=== PATIENT | male | born 1950 | race Caucasian/White ===

== ENCOUNTER 2022-05-27 05:22 | Day surgery (SDC) | payer MEDICARE ==
[2022-05-21 14:39] LABS: BASOPHILS # (AUTO) 0.1 X10'3 (0-0.2); BASOPHILS % (AUTO) 0.7 % (0-1); EOSINOPHILS # (AUTO) 0.2 X10'3 (0-0.9); EOSINOPHILS % (AUTO) 2.2 % (0-6); LYMPHOCYTES # (AUTO) 1.8 X10'3 (1.1-4.8); LYMPHOCYTES % (AUTO) 17.1 % (21-51); MEAN CORPUSCULAR HEMOGLOBIN 27.5 PG (27.0-31.0); MEAN CORPUSCULAR HGB CONC 32.3 g/dL (33.0-36.5); MEAN CORPUSCULAR VOLUME 84.9 FL (78-98); MEAN PLATELET VOLUME 6.8 FL (7.4-10.4); MONOCYTES # (AUTO) 0.8 X10'3 (0-0.9); MONOCYTES % (AUTO) 7.3 % (2-12); NEUTROPHILS # (AUTO) 7.9 X10'3 (1.8-7.7); NEUTROPHILS % (AUTO) 72.7 % (42-75); PRE OP HEMATOCRIT 32.6 % (42.0-52.0); PRE OP PLATELET COUNT 243 X10'3 (140-440); RED BLOOD COUNT 3.84 X10'6 (4.70-6.10); RED CELL DISTRIBUTION WIDTH 14.8 % (11.5-14.5)
[2022-05-21 14:49] LABS: PRE OP HEMOGLOBIN 10.5 g/dL (14.0-17.9)
[2022-05-21 14:55] LABS: ALBUMIN 3.6 G/DL (3.4-5.0); ALBUMIN/GLOBULIN RATIO 0.9 (1.1-1.5); ALKALINE PHOSPHATASE 99 IU/L (46-116); BLOOD UREA NITROGEN 9 MG/DL (7-18); BUN/CREATININE RATIO 12.2 (5.4-32.0); CALCIUM 9.1 MG/DL (8.5-10.1); CHLORIDE 107 MMOL/L (99-107); CREATININE 0.74 MG/DL (0.60-1.10); PRE OP ALT 15 U/L (30-65); PRE OP ANION GAP 8 (8-16); PRE OP AST 17 U/L (10-37); PRE OP BILIRUB, TOTAL 0.4 MG/DL (0.0-1.0); PRE OP GLUCOSE 92 MG/DL (70-104); PRE OP SODIUM 142 MMOL/L (135-145); TOTAL CARBON DIOXIDE 27.4 MMOL/L (24-32); TOTAL PROTEIN 7.5 G/DL (6.4-8.2); eGFR > 90 ML/MIN
[~2022-05-27] VITALS: Ht 177.8 cm; Wt 82.2 kg
[2022-05-27] VITALS (8 sets, daily range): BP systolic 92–139; BP diastolic 54–83
[~2022-05-27 05:22] MED LIST: APIX5TAB3 PO; GABA400C PO; IBUP-1985 PO; TRAZ-251 PO; ringers solution, lacted 1,000 ML IV SCH
[2022-05-27] MEDS ORDERED: cefazolin 2gm/D5W 100mL 100 ML IV ONE (05:30)
[2022-05-27] MEDS ORDERED: famotidine 20mg tablet PO ONE (05:30)
[2022-05-27] MEDS ORDERED: BUPIVAcaine/PF 2.5 mg/ml (0.25%) 30ml vial ONE (07:01)
[2022-05-27] MEDS ORDERED: triamcinolone acetonide 40mg/ml inj ONE (07:01)
[2022-05-27] MEDS ORDERED: sevoflurane 250ml liquid IH ONE (07:29)
[2022-05-27] MEDS ORDERED: fentaNYL/PF 50MCG/1 ML 2ML syringe ONE (07:34)
[2022-05-27] MEDS ORDERED: midazolam 1 mg/ML 2ml injection ONE (07:37)
[2022-05-27] MEDS ORDERED: propofol inj 20 ML IV ONE (07:50)
[2022-05-27] MEDS ORDERED: BUPIVAcaine/PF 2.5 mg/ml (0.25%) 30ml vial IJ ONE (07:53)
[2022-05-27] MEDS ORDERED: triamcinolone acetonide 40mg/ml inj IJ ONE (07:53)
[2022-05-27] MEDS ORDERED: HYDROcodone/acetaminophen 10/325mg tab PO PRN (07:55)
--- NOTE | 2022-05-27 08:00 | NUR ---
Received from OR via BED, accompanied by Anesthesiologist and report given by Anesthesiologist. PATIENT WAKING UP, NO S/S OF PAIN, V/S WNL, SCD ON, 20G TO RUE, BANDAID drsg to RIGHT shoulder-CDI
[2022-05-27] MEDS ORDERED: ondansetron/PF 4mg/2ml inj IV PRN (08:05)
[2022-05-27] MEDS ORDERED: proCHLORperazine 10 MG/2 ml inj IV PRN (08:05)
[2022-05-27] MEDS ORDERED: ringers solution, lacted 1,000 ML IV SCH (08:05)
[2022-05-27] MEDS ORDERED: meperidine/PF 25mg/ml syringe IV PRN ×3 (08:05)
[2022-05-27] MEDS ORDERED: morphine 2 MG/ML inj. syringe IV PRN (08:05)
[2022-05-27] MEDS ORDERED: morphine 4 MG/ML inj SYRINge IV PRN (08:05)
--- NOTE | 2022-05-27 08:05 | NUR ---
Received from OR via BED, accompanied by Anesthesiologist and report given by Anesthesiologist. PATIENT WAKING UP, NO S/S OF PAIN, V/S WNL, SCD ON, 20G TO HEMA LYN to RIGHT shoulder-CDI Addendum: 05/27/22 at 0806 by Joao Fuller RN WRONG TIME
--- NOTE | 2022-05-27 09:00 | NUR ---
PATIENT A&OX4, DENIES PAIN, V/S WNL, SCD OFF, 20G TO RUE D/C, BANDAID drsg to RIGHT shoulder-CDI I HAVE REVIEWED D/C INSTRUCTIONS WITH PATIENT and they have verbalized understanding patient d/c home with all belongings and family gave transport home.
== END 2022-05-27 09:00 | disposition home or self-care (01) ==
LOC: PAS 05:22
PROVIDERS: ATTEND Orthopaedic Surgery
DX: M75.01 Adhesive capsulitis of right shoulder (principal); M25.611 Stiffness of right shoulder, not elsewhere classified; M75.121 Complete rotator cuff tear or rupture of right shoulder, not specified as traumatic; I48.91 Unspecified atrial fibrillation; M19.90 Unspecified osteoarthritis, unspecified site; G62.9 Polyneuropathy, unspecified; F10.91 Alcohol use, unspecified, in remission; Z79.01 Long term (current) use of anticoagulants; Z79.899 Other long term (current) drug therapy; Z87.891 Personal history of nicotine dependence; Z98.890 Other specified postprocedural states; Z96.611 Presence of right artificial shoulder joint; Z96.653 Presence of artificial knee joint, bilateral
CPT/HCPCS: 20610; 23700; 36415; 80053; 82948; 85025; J0690; J2250; J2704; J3010; J3301; J3490; J7120; Z7506; Z7512; A4618

== ENCOUNTER 2022-10-07 05:18 | Inpatient (IN) | payer MEDICARE ==
[2022-09-30 11:48] LABS: BASOPHILS # (AUTO) 0.1 X10'3 (0-0.2); BASOPHILS % (AUTO) 0.6 % (0-1); EOSINOPHILS # (AUTO) 0.2 X10'3 (0-0.9); EOSINOPHILS % (AUTO) 1.9 % (0-6); LYMPHOCYTES # (AUTO) 1.9 X10'3 (1.1-4.8); LYMPHOCYTES % (AUTO) 19.6 % (21-51); MEAN CORPUSCULAR HEMOGLOBIN 27.8 PG (27.0-31.0); MEAN CORPUSCULAR VOLUME 84.2 FL (78-98); MEAN PLATELET VOLUME 7.2 FL (7.4-10.4); MONOCYTES # (AUTO) 0.7 X10'3 (0-0.9); MONOCYTES % (AUTO) 7.4 % (2-12); NEUTROPHILS # (AUTO) 6.7 X10'3 (1.8-7.7); NEUTROPHILS % (AUTO) 70.5 % (42-75); PRE OP HEMATOCRIT 37.2 % (42.0-52.0); PRE OP HEMOGLOBIN 12.3 g/dL (14.0-17.9); PRE OP PLATELET COUNT 226 X10'3 (140-440); RED BLOOD COUNT 4.42 X10'6 (4.70-6.10); RED CELL DISTRIBUTION WIDTH 18.1 % (11.5-14.5)
[2022-09-30 12:08] LABS: ALBUMIN 3.7 G/DL (3.4-5.0); ALKALINE PHOSPHATASE 85 IU/L (46-116); BLOOD UREA NITROGEN 13 MG/DL (7-18); BUN/CREATININE RATIO 12.4 (10.0-20.0); CALCIUM 9.4 MG/DL (8.5-10.1); CHLORIDE 107 MMOL/L (99-107); CREATININE 1.05 MG/DL (0.60-1.10); PRE OP ALT 17 U/L (30-65); PRE OP ANION GAP 7 (8-16); PRE OP AST 21 U/L (10-37); PRE OP BILIRUB, TOTAL 0.6 MG/DL (0.0-1.0); PRE OP GLUCOSE 121 MG/DL (70-104); PRE OP POTASSIUM 4.1 MMOL/L (3.4-5.1); PRE OP SODIUM 144 MMOL/L (135-145); TOTAL CARBON DIOXIDE 29.6 MMOL/L (24-32); TOTAL PROTEIN 7.5 G/DL (6.4-8.2); eGFR 70 ML/MIN
[2022-10-07] VITALS (31 sets, daily range): BP systolic 123–175; BP diastolic 60–98; PULSE 62–90; RESP 12–18; TEMP 97.1–98.7; O2SAT 94–100
[~2022-10-07] VITALS: Ht 177.8 cm; Wt 85.7 kg
[~2022-10-07 05:18] MED LIST changes: +ACET-1025 PO; +CELE-193 PO; +GABA300C PO; -GABA400C PO; -IBUP-1985 PO; +MULT-1085 PO; +VIT C PO; +VIT D PO
[2022-10-07] MEDS ORDERED: ceFOXitin 2GM-NS 100mL ADDvant 100 ML IV ONE (05:30)
[2022-10-07] MEDS ORDERED: famotidine 20mg tablet PO ONE (05:30)
[2022-10-07] MEDS ORDERED: LIDOcaine 1% 30ml preserv. free vial ONE (06:35)
[2022-10-07] MEDS ORDERED: BUPIVAcaine/PF 2.5 mg/ml (0.25%) 30ml vial ONE ×2 (06:35→12:36)
[2022-10-07] MEDS ORDERED: rocuronium 10mg/ml inj IV ONE ×2 (07:27→08:03)
[2022-10-07] MEDS ORDERED: sevoflurane 250ml liquid IH ONE (07:27)
[2022-10-07] MEDS ORDERED: fentaNYL /PF 50mcg/ml 5ml ampule ONE (07:38)
[2022-10-07] MEDS ORDERED: MIDAZolam 1 MG/ML 5ML VIAL ONE (07:38)
[2022-10-07] MEDS ORDERED: propofol inj 20 ML IV ONE (07:40)
[2022-10-07] MEDS ORDERED: LIDOcaine 2% (20mg/ml) 5ml vial ONE (07:40)
[2022-10-07] MEDS ORDERED: LIDOcaine 4% (40 mg/ml) topical solution 50ml ONE (08:03)
[2022-10-07] MEDS ORDERED: dexamethasone sod phosphate 4mg/ml inj. ONE (08:03)
[2022-10-07] MEDS ORDERED: glycopyrrolate 0.2mg/ml inj ONE (08:12)
[2022-10-07] MEDS ORDERED: ringers solution, lacted 1,000 ML IV SCH (08:45)
[2022-10-07] MEDS ORDERED: labetalol 20mg/4ml (5mg/ml) syringe IV PRN (08:45)
[2022-10-07] MEDS ORDERED: morphine 4 MG/ML inj SYRINge IV PRN (08:45)
[2022-10-07] MEDS ORDERED: morphine 2 MG/ML inj. syringe IV PRN (08:45)
[2022-10-07] MEDS ORDERED: meperidine/PF 25mg/ml syringe IV PRN ×3 (08:45)
[2022-10-07] MEDS ORDERED: enalaprilat dihydrate 2.5mg/2ml vial IV PRN (08:45)
[2022-10-07] MEDS ORDERED: ondansetron/PF 4mg/2ml inj IV PRN ×2 (08:45→10:50)
[2022-10-07] MEDS ORDERED: proCHLORperazine 10 MG/2 ml inj IV PRN (08:45)
[2022-10-07] MEDS ORDERED: INDOCYANINE GREEN 25 MG/10 ML VIAL IV ONE (09:37)
[2022-10-07] MEDS ORDERED: acetaminophen 1,000mg/100ml IV 100 ML IV ONE (09:39)
[2022-10-07] MEDS ORDERED: neostigmine methylsulfate 1 MG/ML 10ml vial ONE (10:22)
[2022-10-07] MEDS ORDERED: ondansetron/PF 4mg/2ml inj ONE (10:22)
--- NOTE | 2022-10-07 10:35 | NUR ---
Received from OR via HOSPITAL BED , accompanied by Anesthesiologist and report given by DESIREE Anesthesiologist. PATIENT WAKING UP, NO S/S OF PAIN, V/S WNL, SCD ON , PIV 20G RIGHT HAND, ABDOMEN DRESSING C/D/I. Addendum: 10/07/22 at 1051 by Jurgen Mayen RN Amended: Links added.
--- NOTE | 2022-10-07 10:36 | NUR ---
SUPRAPUBIC QIU CATHETER DRAINING CLEAR YELLOW URINE. SITE IS C/D/I.
[2022-10-07] MEDS ORDERED: oxyCODONE/APAP 5-325mg tablet PO PRN (10:50)
[2022-10-07] MEDS ORDERED: naloxone 0.4 mg/ml inj IV PRN (10:50)
[2022-10-07] MEDS ORDERED: vancomycin 1,000mg inj ONE (12:36)
--- NOTE | 2022-10-07 13:01 | NUR ---
Received report from Suman HARRELL
--- NOTE | 2022-10-07 13:05 | NUR ---
PATIENT HAS MET ALL CRITERIA FOR TRANSFER TO ORTHO FLOOR. VSS. DRESSINGS INTACT. BED LOW, CALL LIGHT PRESENT AND 2 RAILS UP. RN PRESENT TO ACCEPT CARE OF PATIENT AND REPORT HAS BEEN CALLED. ALL QUESTIONS ANSWERED TO ACCEPTING RN. Addendum: 10/07/22 at 1307 by Jurgen Mayen RN Amended: Links added.
[2022-10-07] MEDS: potassium CL 20mEq in D5-1/2NS 1,000 ML IV SCH ×2 (13:35→21:59)
[2022-10-07] MEDS: acetaminophen 325mg tablet PO SCH ×2 (15:25→21:55)
[2022-10-07] MEDS: ketorolac trometh. 30mg/ml inj. IV SCH ×2 (15:37→23:49)
--- NOTE | 2022-10-07 16:15 | NUR ---
EARLIER IN THE DAY, GAVE REPORT TO FERNANDA KEY.
--- NOTE | 2022-10-07 17:00 | NUR ---
I have reviewed and agree with the interventions, assessments, and documentation by Enzo Nugent LVN.
--- NOTE | 2022-10-07 18:35 | NUR ---
Received report from day nurse.
--- NOTE | 2022-10-07 19:00 | NUR ---
Problems reprioritized. Patient report given, questions answered & plan of care reviewed with JULIO CESAR Dorado.
[2022-10-07] MEDS: traZODone 50mg tablet PO SCH (21:55)
[2022-10-07] MEDS: gabapentin 300mg capsule PO SCH (21:56)
[2022-10-07] MEDS: magnesium hydroxide 30ml (MOM) UD suspension PO SCH (21:56)
[2022-10-08] VITALS (7 sets, daily range): BP systolic 107–169; BP diastolic 54–86; PULSE 59–79; RESP 15–20; TEMP 97.6–98.7; O2SAT 95–98
[2022-10-08] MEDS: acetaminophen 325mg tablet PO SCH ×4 (02:00→21:01)
[2022-10-08] MEDS: potassium CL 20mEq in D5-1/2NS 1,000 ML IV SCH ×3 (05:26→21:00)
--- NOTE | 2022-10-08 06:19 | NUR ---
Patient in room ORTHO 4015. I have received report from JULIO CESAR Dorado and had the opportunity to ask questions and assume patient care.
--- NOTE | 2022-10-08 06:50 | NUR ---
Problems reprioritized. Patient report given, questions answered & plan of care reviewed with Enzo Contreras.
[2022-10-08 06:53] LABS: BASOPHILS % (AUTO) 0 % (0-1); EOSINOPHILS % (AUTO) 0 % (0-6); HEMATOCRIT 35.3 % (42.0-52.0); HEMOGLOBIN 11.5 g/dl (14.0-17.9); LYMPHOCYTES # (AUTO) 0.8 X10'3 (1.1-4.8); LYMPHOCYTES % (AUTO) 4.2 % (21-51); MEAN CORPUSCULAR HEMOGLOBIN 27.7 PG (27.0-31.0); MEAN CORPUSCULAR HGB CONC 32.5 g/dL (33.0-36.5); MEAN CORPUSCULAR VOLUME 85.2 FL (78-98); MONOCYTES # (AUTO) 1.1 X10'3 (0-0.9); MONOCYTES % (AUTO) 6.1 % (2-12); NEUTROPHILS # (AUTO) 16.2 X10'3 (1.8-7.7); NEUTROPHILS % (AUTO) 89.7 % (42-75); PLATELET COUNT 195 X10'3 (140-440); RED BLOOD COUNT 4.14 X10'6 (4.70-6.10); RED CELL DISTRIBUTION WIDTH 16.9 % (11.5-14.5); WHITE BLOOD COUNT 18.1 X10'3 (4.5-11.0)
[2022-10-08 07:04] LABS: ALBUMIN 3.2 G/DL (3.4-5.0); ANION GAP 10 (8-16); BLOOD UREA NITROGEN 17 MG/DL (7-18); BUN/CREATININE RATIO 14.8 (10.0-20.0); CALCIUM 8.3 MG/DL (8.5-10.1); CHLORIDE 102 MMOL/L (99-107); CREATININE 1.15 MG/DL (0.60-1.10); GLUCOSE 186 MG/DL (70-104); POTASSIUM 4.4 MMOL/L (3.5-5.1); SODIUM 135 MMOL/L (135-145); TOTAL CARBON DIOXIDE 22.7 MMOL/L (24-32); eGFR 63 ML/MIN
[2022-10-08] MEDS: magnesium hydroxide 30ml (MOM) UD suspension PO SCH ×2 (07:47→21:01)
[2022-10-08] MEDS: enoxaparin 40mg/0.4ml syringe SQ SCH (07:48)
[2022-10-08] MEDS: gabapentin 300mg capsule PO SCH ×2 (07:48→21:01)
[2022-10-08] MEDS: ketorolac trometh. 30mg/ml inj. IV SCH ×2 (08:11→16:32)
--- NOTE | 2022-10-08 18:00 | NUR ---
I have reviewed and agree with interventions, assessments, and documentation by Enzo Nugent LVN.
--- NOTE | 2022-10-08 18:45 | NUR ---
Patient in room ORTHO 4015. I have received report from Enzo cespedes and had the opportunity to ask questions and assume patient care.
--- NOTE | 2022-10-08 18:58 | NUR ---
Problems reprioritized. Patient report given, questions answered & plan of care reviewed with JULIO CESAR Dorado.
[2022-10-08] MEDS: traZODone 50mg tablet PO SCH (21:01)
[2022-10-09] MEDS: ketorolac trometh. 30mg/ml inj. IV SCH ×3 (00:49→16:16)
[2022-10-09] MEDS: acetaminophen 325mg tablet PO SCH ×4 (00:50→21:33)
[2022-10-09] MEDS: potassium CL 20mEq in D5-1/2NS 1,000 ML IV SCH ×3 (02:57→18:50)
[2022-10-09 06:00] VITALS: BP 153/84; PULSE 79; RESP 18; TEMP 97.1; O2SAT 98
--- NOTE | 2022-10-09 06:18 | NUR ---
Patient in room ORTHO 4011. I have received report from JULIO CESAR Dorado and had the opportunity to ask questions and assume patient care. NAD at this time.
[2022-10-09 06:48] LABS: BASOPHILS # (AUTO) 0.1 X10'3 (0-0.2); BASOPHILS % (AUTO) 0.3 % (0-1); EOSINOPHILS % (AUTO) 0 % (0-6); HEMATOCRIT 34.4 % (42.0-52.0); HEMOGLOBIN 11.3 g/dl (14.0-17.9); LYMPHOCYTES # (AUTO) 1.1 X10'3 (1.1-4.8); LYMPHOCYTES % (AUTO) 6.4 % (21-51); MEAN CORPUSCULAR HEMOGLOBIN 28.1 PG (27.0-31.0); MEAN CORPUSCULAR VOLUME 85.2 FL (78-98); MEAN PLATELET VOLUME 7.8 FL (7.4-10.4); MONOCYTES # (AUTO) 1.2 X10'3 (0-0.9); MONOCYTES % (AUTO) 6.9 % (2-12); NEUTROPHILS # (AUTO) 14.7 X10'3 (1.8-7.7); NEUTROPHILS % (AUTO) 86.4 % (42-75); PLATELET COUNT 186 X10'3 (140-440); RED BLOOD COUNT 4.04 X10'6 (4.70-6.10); RED CELL DISTRIBUTION WIDTH 17.3 % (11.5-14.5)
[2022-10-09 07:06] LABS: ALBUMIN 3.1 G/DL (3.4-5.0); ANION GAP 7 (8-16); BLOOD UREA NITROGEN 15 MG/DL (7-18); BUN/CREATININE RATIO 17.6 (10.0-20.0); CALCIUM 8.3 MG/DL (8.5-10.1); CHLORIDE 104 MMOL/L (99-107); CREATININE 0.85 MG/DL (0.60-1.10); GLUCOSE 164 MG/DL (70-104); POTASSIUM 4.6 MMOL/L (3.5-5.1); SODIUM 138 MMOL/L (135-145); TOTAL CARBON DIOXIDE 26.7 MMOL/L (24-32); eGFR 89 ML/MIN
[2022-10-09] MEDS: enoxaparin 40mg/0.4ml syringe SQ SCH (07:47)
[2022-10-09] MEDS: magnesium hydroxide 30ml (MOM) UD suspension PO SCH ×2 (07:48→21:34)
[2022-10-09] MEDS: gabapentin 300mg capsule PO SCH ×2 (07:49→21:33)
[2022-10-09 08:00] VITALS: RESP 16; O2SAT 97
[2022-10-09 10:00] VITALS: BP 152/77; PULSE 68; RESP 16; TEMP 98; O2SAT 95
--- NOTE | 2022-10-09 15:56 | NUR ---
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
[2022-10-09 18:00] VITALS: BP 150/72; PULSE 85; RESP 16; TEMP 97; O2SAT 97
--- NOTE | 2022-10-09 18:27 | NUR ---
Problems reprioritized. Patient report given, questions answered & plan of care reviewed with shift superintendent RN.
--- NOTE | 2022-10-09 18:30 | NUR ---
Patient in room ORTHO 4015. I have received report from Fabiola MICHAEL and had the opportunity to ask questions and assume patient care.
--- NOTE | 2022-10-09 18:38 | NUR ---
Problems reprioritized. Patient report given, questions answered & plan of care reviewed with JULIO CESAR Dorado.
--- NOTE | 2022-10-09 19:27 | NUR ---
Called with regard to emerald on hold, last taken 10/03. stated that he is waiting to see H&H in tomorrows labs before resuming. Patient is getting 40mg lovenox sub Q daily.
[2022-10-09 20:00] VITALS: RESP 16; O2SAT 97
[2022-10-09] MEDS: traZODone 50mg tablet PO SCH (21:32)
[2022-10-09 22:00] VITALS: BP 136/77; PULSE 82; RESP 16; TEMP 97.9; TEMP 98.7; O2SAT 97
[2022-10-10] MEDS: ketorolac trometh. 30mg/ml inj. IV SCH ×2 (00:27→07:26)
[2022-10-10] MEDS: acetaminophen 325mg tablet PO SCH ×4 (02:00→20:21)
[2022-10-10] MEDS: potassium CL 20mEq in D5-1/2NS 1,000 ML IV SCH ×2 (02:50→08:20)
[2022-10-10 06:00] VITALS: BP 148/82; PULSE 66; RESP 16; TEMP 98.9; O2SAT 98
--- NOTE | 2022-10-10 06:15 | NUR ---
Problems reprioritized. Patient report given, questions answered & plan of care reviewed with Fabiola Contreras.
--- NOTE | 2022-10-10 06:17 | NUR ---
Patient in room ORTHO 4015. I have received report from JULIO CESAR Dorado and had the opportunity to ask questions and assume patient care.
[2022-10-10 07:10] LABS: BASOPHILS # (AUTO) 0.1 X10'3 (0-0.2); BASOPHILS % (AUTO) 0.5 % (0-1); EOSINOPHILS % (AUTO) 0.2 % (0-6); HEMATOCRIT 33.9 % (42.0-52.0); HEMOGLOBIN 10.9 g/dl (14.0-17.9); LYMPHOCYTES # (AUTO) 1.4 X10'3 (1.1-4.8); LYMPHOCYTES % (AUTO) 9.7 % (21-51); MEAN CORPUSCULAR HEMOGLOBIN 27.6 PG (27.0-31.0); MEAN CORPUSCULAR HGB CONC 32.2 g/dL (33.0-36.5); MEAN CORPUSCULAR VOLUME 85.8 FL (78-98); MEAN PLATELET VOLUME 7.8 FL (7.4-10.4); MONOCYTES % (AUTO) 6.7 % (2-12); NEUTROPHILS # (AUTO) 11.8 X10'3 (1.8-7.7); NEUTROPHILS % (AUTO) 82.9 % (42-75); PLATELET COUNT 203 X10'3 (140-440); RED BLOOD COUNT 3.95 X10'6 (4.70-6.10); RED CELL DISTRIBUTION WIDTH 17.3 % (11.5-14.5); WHITE BLOOD COUNT 14.2 X10'3 (4.5-11.0)
[2022-10-10] MEDS: enoxaparin 40mg/0.4ml syringe SQ SCH (07:28)
[2022-10-10] MEDS: gabapentin 300mg capsule PO SCH (07:28)
[2022-10-10] MEDS: magnesium hydroxide 30ml (MOM) UD suspension PO SCH (07:30)
[2022-10-10 07:49] LABS: ANION GAP 9 (8-16); BLOOD UREA NITROGEN 17 MG/DL (7-18); BUN/CREATININE RATIO 19.5 (10.0-20.0); CALCIUM 8.3 MG/DL (8.5-10.1); CHLORIDE 106 MMOL/L (99-107); CREATININE 0.87 MG/DL (0.60-1.10); GLUCOSE 94 MG/DL (70-104); POTASSIUM 4.3 MMOL/L (3.5-5.1); SODIUM 141 MMOL/L (135-145); TOTAL CARBON DIOXIDE 26.2 MMOL/L (24-32); eGFR 87 ML/MIN
[2022-10-10 08:00] VITALS: RESP 16; O2SAT 98
[2022-10-10 10:00] VITALS: BP 129/64; PULSE 85; RESP 18; TEMP 98.4; O2SAT 98
[2022-10-10] MEDS: gabapentin 400mg capsule PO SCH ×3 (12:50→20:21)
[2022-10-10] MEDS ORDERED: HYDROcodone/acetaminophen 5mg/325mg tablet PO PRN ×2 (12:55)
[2022-10-10] MEDS ORDERED: HYDR-3964 PO (13:01)
--- NOTE | 2022-10-10 14:52 | NUR ---
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
[2022-10-10 18:00] VITALS: BP 156/96; PULSE 94; RESP 18; TEMP 99.5; O2SAT 96
--- NOTE | 2022-10-10 18:35 | NUR ---
Problems reprioritized. Patient report given, questions answered & plan of care reviewed with shift superintendent caustic cresylate nurse.
--- NOTE | 2022-10-10 19:04 | NUR ---
Problems reprioritized. Patient report given, questions answered & plan of care reviewed with operation shift supervisor nurse.
[2022-10-10 20:00] VITALS: RESP 16; O2SAT 96
[2022-10-10] MEDS: traZODone 50mg tablet PO SCH (20:21)
[2022-10-10] MEDS: apixaban 5mg tablet PO SCH (20:21)
[2022-10-10 22:00] VITALS: BP 149/72; PULSE 103; RESP 17; TEMP 98.7; O2SAT 96
[2022-10-11] MEDS: acetaminophen 325mg tablet PO SCH ×4 (02:00→20:05)
--- NOTE | 2022-10-11 06:30 | NUR ---
Patient in room ORTHO 4015. I have received report from Kaylynn HARRELL and had the opportunity to ask questions and assume patient care.
[2022-10-11 06:34] VITALS: BP 152/82; PULSE 84; RESP 16; TEMP 98.5; O2SAT 98
[2022-10-11 06:48] LABS: BASOPHILS % (AUTO) 0.3 % (0-1); EOSINOPHILS # (AUTO) 0.1 X10'3 (0-0.9); HEMATOCRIT 31.9 % (42.0-52.0); HEMOGLOBIN 10.5 g/dl (14.0-17.9); LYMPHOCYTES # (AUTO) 1.3 X10'3 (1.1-4.8); LYMPHOCYTES % (AUTO) 9.4 % (21-51); MEAN CORPUSCULAR HEMOGLOBIN 28.2 PG (27.0-31.0); MEAN CORPUSCULAR HGB CONC 33.1 g/dL (33.0-36.5); MEAN CORPUSCULAR VOLUME 85.2 FL (78-98); MEAN PLATELET VOLUME 7.8 FL (7.4-10.4); MONOCYTES # (AUTO) 1.4 X10'3 (0-0.9); MONOCYTES % (AUTO) 9.8 % (2-12); NEUTROPHILS # (AUTO) 11.1 X10'3 (1.8-7.7); NEUTROPHILS % (AUTO) 79.5 % (42-75); PLATELET COUNT 224 X10'3 (140-440); RED BLOOD COUNT 3.74 X10'6 (4.70-6.10); RED CELL DISTRIBUTION WIDTH 17.1 % (11.5-14.5)
--- NOTE | 2022-10-11 06:49 | NUR ---
Problems reprioritized. Patient report given, questions answered & plan of care reviewed with GEOVANY RN.
[2022-10-11 06:52] LABS: ALBUMIN 2.7 G/DL (3.4-5.0); ANION GAP 10 (8-16); BLOOD UREA NITROGEN 17 MG/DL (7-18); CALCIUM 8.5 MG/DL (8.5-10.1); CHLORIDE 106 MMOL/L (99-107); CREATININE 0.85 MG/DL (0.60-1.10); GLUCOSE 108 MG/DL (70-104); POTASSIUM 3.7 MMOL/L (3.5-5.1); SODIUM 140 MMOL/L (135-145); TOTAL CARBON DIOXIDE 24.5 MMOL/L (24-32); eGFR 89 ML/MIN
[2022-10-11] MEDS: apixaban 5mg tablet PO SCH ×2 (07:20→20:03)
[2022-10-11] MEDS: gabapentin 400mg capsule PO SCH ×3 (07:21→20:03)
[2022-10-11] MEDS: magnesium hydroxide 30ml (MOM) UD suspension PO SCH (07:22)
[2022-10-11 08:00] VITALS: RESP 16
[2022-10-11 10:02] VITALS: BP 104/53; PULSE 82; RESP 16; TEMP 97.7; O2SAT 96
[2022-10-11 18:00] VITALS: BP 121/58; PULSE 78; RESP 18; TEMP 97.1; O2SAT 99
--- NOTE | 2022-10-11 18:47 | NUR ---
Problems reprioritized. Patient report given, questions answered & plan of care reviewed with Kaylynn HARRELL.
[2022-10-11 20:00] VITALS: RESP 18; O2SAT 99
[2022-10-11] MEDS: traZODone 50mg tablet PO SCH (20:03)
[2022-10-11 22:00] VITALS: BP 121/66; PULSE 76; RESP 16; TEMP 97.8; O2SAT 97
[2022-10-12] MEDS: acetaminophen 325mg tablet PO SCH ×4 (02:00→20:45)
[2022-10-12 06:00] VITALS: BP 119/55; PULSE 76; RESP 17; TEMP 98.1; O2SAT 97
--- NOTE | 2022-10-12 06:39 | NUR ---
Patient in room ORTHO 4015. I have received report from Kaylynn HARRELL and had the opportunity to ask questions and assume patient care.
[2022-10-12] MEDS: apixaban 5mg tablet PO SCH ×2 (07:39→20:45)
[2022-10-12] MEDS: gabapentin 400mg capsule PO SCH ×3 (07:39→20:45)
[2022-10-12] MEDS: magnesium hydroxide 30ml (MOM) UD suspension PO SCH (07:45)
[2022-10-12 07:49] LABS: BASOPHILS % (AUTO) 0.4 % (0-1); EOSINOPHILS # (AUTO) 0.3 X10'3 (0-0.9); EOSINOPHILS % (AUTO) 2.3 % (0-6); HEMATOCRIT 30.2 % (42.0-52.0); HEMOGLOBIN 9.8 g/dl (14.0-17.9); LYMPHOCYTES # (AUTO) 1.1 X10'3 (1.1-4.8); LYMPHOCYTES % (AUTO) 8.5 % (21-51); MEAN CORPUSCULAR HEMOGLOBIN 27.6 PG (27.0-31.0); MEAN CORPUSCULAR HGB CONC 32.3 g/dL (33.0-36.5); MEAN CORPUSCULAR VOLUME 85.4 FL (78-98); MEAN PLATELET VOLUME 7.5 FL (7.4-10.4); MONOCYTES # (AUTO) 1.4 X10'3 (0-0.9); MONOCYTES % (AUTO) 10.7 % (2-12); NEUTROPHILS # (AUTO) 10.3 X10'3 (1.8-7.7); NEUTROPHILS % (AUTO) 78.1 % (42-75); PLATELET COUNT 222 X10'3 (140-440); RED BLOOD COUNT 3.54 X10'6 (4.70-6.10); RED CELL DISTRIBUTION WIDTH 17.7 % (11.5-14.5); WHITE BLOOD COUNT 13.2 X10'3 (4.5-11.0)
[2022-10-12 07:52] LABS: ALBUMIN 2.4 G/DL (3.4-5.0); ANION GAP 9 (8-16); BLOOD UREA NITROGEN 17 MG/DL (7-18); BUN/CREATININE RATIO 24.3 (10.0-20.0); CALCIUM 8.1 MG/DL (8.5-10.1); CHLORIDE 106 MMOL/L (99-107); GLUCOSE 97 MG/DL (70-104); POTASSIUM 3.4 MMOL/L (3.5-5.1); SODIUM 139 MMOL/L (135-145); TOTAL CARBON DIOXIDE 23.9 MMOL/L (24-32); eGFR > 90 ML/MIN
[2022-10-12 08:00] VITALS: RESP 18
[2022-10-12 10:00] VITALS: BP 118/54; PULSE 105; RESP 18; TEMP 97.9; O2SAT 98
--- NOTE | 2022-10-12 15:26 | NUR ---
Initial: Pt admit post-op day 5 s/p colostomy reversal advanced to regular diet 8/4 WL from initial full liquids 8/2 WL PO ~52% avg solid meals per EMR. Overall not meeting estimated needs given restrictive diets though if current intake persists will meet ~60% kcal and ~55% protein estimated needs. Pt seen by HARMONY at bedside; pt reports is being discharged tomorrow w/ intake and appetite improving though dislikes oatmeal/cream of wheat-dietary notified. RD provided verbal high protein/ONS diet ed to pt who reports has drank Ensures in past and will at home if intake declines. Pt is agreeable to peach smoothie TIDWM to assist meeting needs- dietary notified. LBM 10/11. Will monitor for further PO trends and nutrition intervention needs. Rec: 1. continue regular diet per MD; encourage PO 2. peach smoothie TIDWM 3. routine bowel care 4. weekly wt Addendum: 10/12/22 at [address] Amended: Links added.
--- NOTE | 2022-10-12 17:04 | NUR ---
Patients dressing changed at this time arnaud packing wet to moist, covered with 4 by [address] optifoam
--- NOTE | 2022-10-12 18:22 | NUR ---
Problems reprioritized. Patient report given, questions answered & plan of care reviewed with Kaylynn HARRELL.
[2022-10-12 20:00] VITALS: RESP 15; O2SAT 96
[2022-10-12] MEDS: traZODone 50mg tablet PO SCH (20:45)
[2022-10-13] MEDS: acetaminophen 325mg tablet PO SCH ×3 (02:00→09:25)
[2022-10-13 06:00] VITALS: BP 134/63; PULSE 66; RESP 18; TEMP 98.7; O2SAT 96
--- NOTE | 2022-10-13 06:13 | NUR ---
Problems reprioritized. Patient report given, questions answered & plan of care reviewed with SHAHID HARRELL.
--- NOTE | 2022-10-13 06:41 | NUR ---
Patient in room ORTHO 4015. I have received report from JULIO CESAR Chaidez and had the opportunity to ask questions and assume patient care.
[2022-10-13 08:00] VITALS: RESP 18; O2SAT 96
[2022-10-13] MEDS: gabapentin 400mg capsule PO SCH ×2 (08:25→14:05)
[2022-10-13] MEDS: apixaban 5mg tablet PO SCH (08:25)
[2022-10-13] MEDS: magnesium hydroxide 30ml (MOM) UD suspension PO SCH (08:25)
[2022-10-13 10:00] VITALS: BP 125/70; PULSE 101; RESP 18; TEMP 98; O2SAT 99
--- NOTE | 2022-10-13 11:30 | NUR ---
MICHAEL Vital, stated pt will have HHC for [place] [facility], per CM arrangements, and that pt & CG are aware.
--- NOTE | 2022-10-13 14:00 | NUR ---
I have reviewed and agree with interventions, assessments, and documentation by Enzo Nugent LVN.
--- NOTE | 2022-10-13 14:00 | NUR ---
Pt stable for discharge. Wound Vac was placed this morning by wound team with instructions and supplies. Patient signed all discharge paperwork. IV was discontinued prior to discharge. Patient left with all belongings. Caregiver was present at the time of discharge. Patient was assisted out via wheelchair with the help of one staff member and left in a private vehicle driven by care-buckle attaching machine operator to go home.
--- NOTE | 2022-10-14 13:52 | NUR ---
WOUND VAC EDUCATION PROVIDED BY WOUND CARE 1. Patient instructed to call the Wound Center or their Home Health Agency immediately if: * They notice a change in the color or amount of the fluid in the canister. * Their wound looks more red than usual or has a foul smell. * The skin around their wound looks reddened or irritated. * The dressing feels loose or appears to be loose. * They experience any increase or changes in their pain. * The alarm will not turn off. 2. Patient instructed that they should not be disconnected from suction for more than 2 hours at a time. * If they are not able to get the suction back on, they need to remove the dressing and take all of the foam out of the wound. * Then moisten sterile gauze with normal saline and place on/in the wound. * Change the dressing once a day until arrangements have been made to replace the wound vac dressing. 3. Patient instructed to turn the wound vac machine OFF and call 911 or go to the ED immediately if their canister fills rapidly with blood. 4. If any of these occur while in the hospital tell a nurse immediately. Addendum: 10/14/22 at 1352 by Ana M Rodriguez RN Amended: Links added.
== END 2022-10-13 13:50 | disposition home health service (06) | DRG 331 ==
LOC: PAS IN 05:18 → ORTHO 4S 13:10
PROVIDERS: ADMIT Surgery; ATTEND Surgery
PROC: 0DQM4ZZ Repair Descending Colon, Percutaneous Endoscopic Approach (ICD-10-PCS; 2022-10-07)
PROC: B4151ZZ Fluoroscopy of Inferior Mesenteric Artery using Low Osmolar Contrast (ICD-10-PCS; 2022-10-07)
PROC: 8E0W4CZ Robotic Assisted Procedure of Trunk Region, Percutaneous Endoscopic Approach (ICD-10-PCS; 2022-10-07)
PROC: 0DJD8ZZ Inspection of Lower Intestinal Tract, Via Natural or Artificial Opening Endoscopic (ICD-10-PCS; principal; 2022-10-07 07:27)
DX: Z43.3 Encounter for attention to colostomy (principal); K57.90 Diverticulosis of intestine, part unspecified, without perforation or abscess without bleeding; K64.1 Second degree hemorrhoids; Z79.899 Other long term (current) drug therapy; K59.00 Constipation, unspecified; D72.829 Elevated white blood cell count, unspecified
CPT/HCPCS: 36415; 80048; 80053; 82948; 85025; 86885; 86900; 86901; 87081; 97116; 97161; 97530; A4215; A4615; A4618; A6213; A6446; A6449; G0378; J0131; J0694; J1100; J1650; J1885; J2250; J2405; J2704; J2710; J3010; J3370; J3480; J3490; J7120

== ENCOUNTER 2024-04-07 08:00 | Outpatient (CLI) | payer MEDICARE ==
[~2024-04-07] VITALS: Ht 175.3 cm; Wt 76.7 kg
[~2024-04-07 08:00] MED LIST changes: +HYDR-3964 PO; -ringers solution, lacted 1,000 ML IV SCH
[2024-04-07] MEDS ORDERED: AMIT25TA9 PO (12:14)
[2024-04-07] MEDS ORDERED: AMLO10TA5 PO (12:14)
[2024-04-07] MEDS ORDERED: CLOP-32 PO (12:20)
[2024-04-07] MEDS ORDERED: BACL20TA PO (12:20)
[2024-04-07] MEDS ORDERED: ASPI-1071 PO (12:20)
[2024-04-07 12:24] LABS: BASOPHILS # (AUTO) 0.1 X10'3 (0-0.2); BASOPHILS % (AUTO) 0.7 % (0-1); EOSINOPHILS # (AUTO) 0.3 X10'3 (0-0.9); EOSINOPHILS % (AUTO) 3.1 % (0-6); LYMPHOCYTES # (AUTO) 1.2 X10'3 (1.1-4.8); LYMPHOCYTES % (AUTO) 12.6 % (21-51); MEAN CORPUSCULAR HEMOGLOBIN 31.4 PG (27.0-31.0); MEAN CORPUSCULAR HGB CONC 34.5 g/dL (33.0-36.5); MEAN CORPUSCULAR VOLUME 91.3 FL (78-98); MEAN PLATELET VOLUME 7.9 FL (7.4-10.4); MONOCYTES # (AUTO) 0.9 X10'3 (0-0.9); MONOCYTES % (AUTO) 9.2 % (2-12); NEUTROPHILS # (AUTO) 7.2 X10'3 (1.8-7.7); NEUTROPHILS % (AUTO) 74.4 % (42-75); PRE OP HEMATOCRIT 37.5 % (42.0-52.0); PRE OP HEMOGLOBIN 12.9 g/dL (14.0-17.9); PRE OP PLATELET COUNT 270 X10'3 (140-440); PRE OP WHITE BLOOD COUNT 9.6 10'3 (4.8-10.8); RED BLOOD COUNT 4.11 X10'6 (4.70-6.10); RED CELL DISTRIBUTION WIDTH 14.1 % (11.5-14.5)
[2024-04-07 12:25] LABS: PRE OP INR 1.1 INR; PRE OP PROTIME 11.4 SECONDS (9.0-12.0)
[2024-04-07 12:35] LABS: ALBUMIN 3.4 G/DL (3.4-5.0); ALBUMIN/GLOBULIN RATIO 0.8 (1.1-1.5); ALKALINE PHOSPHATASE 115 IU/L (46-116); BLOOD UREA NITROGEN 18 MG/DL (7-18); BUN/CREATININE RATIO 26.5 (10.0-20.0); CALCIUM 9.1 MG/DL (8.5-10.1); CHLORIDE 103 MMOL/L (99-107); CREATININE 0.68 MG/DL (0.60-1.10); PRE OP ALT 40 U/L (30-65); PRE OP ANION GAP 9 (8-16); PRE OP AST 28 U/L (10-37); PRE OP BILIRUB, TOTAL 0.5 MG/DL (0.0-1.0); PRE OP GLUCOSE 124 MG/DL (70-104); PRE OP POTASSIUM 4.2 MMOL/L (3.4-5.1); PRE OP SODIUM 139 MMOL/L (135-145); TOTAL CARBON DIOXIDE 27.1 MMOL/L (24-32); TOTAL PROTEIN 7.9 G/DL (6.4-8.2); eGFR > 90 ML/MIN
[2024-04-07] MEDS ORDERED: ACET-1015 PO (13:09)
[2024-04-14] MEDS ORDERED: ceFAZolin 2gm in dextrose, iso 50 ML IV ONE (05:30)
[2024-04-14] MEDS ORDERED: VANCOMYCIN/H2O 1.5g/300mL PB 300 ML IV ONE (05:30)
[2024-04-14] MEDS ORDERED: ondansetron/PF 4mg/2ml inj IV PRN (05:30)
[2024-04-14] MEDS ORDERED: ringers solution, lacted 1,000 ML IV SCH (05:30)
[2024-04-14] MEDS ORDERED: famotidine 20mg tablet PO ONE (05:30)
[2024-04-14] MEDS ORDERED: protamine sulfate 10mg/ml inj. ONE (08:40)
[2024-05-18] MEDS ORDERED: ACET-1017 PO (12:17)
== END 2024-04-07 23:00 | disposition home or self-care (01) ==
LOC: LAB 08:00 → UNDOADMIN 04-11 08:26 → PAS IN 04-11 08:26 → UNDOADMIN 04-14 08:10 → PAS IN 04-14 08:10 → UNDODISIN 04-14 09:30 → EDSTATUS 04-14 10:30
PROVIDERS: ATTEND Student in an Organized Health Care Education/Training Program
DX: I48.91 Unspecified atrial fibrillation (principal)
CPT/HCPCS: 36415; 71046; 80053; 85025; 85610; 85730; 86885; 86900; 86901; 86920; 87081; 93005; J0690; J2720; J3372; J7120

== ENCOUNTER 2024-04-11 09:03 | Day surgery (SDC) | payer MEDICARE ==
[~2024-04-11] VITALS: Ht 177.8 cm; Wt 72.3 kg
[~2024-04-11 09:03] MED LIST changes: +ACET-1015 PO; -ACET-1025 PO; +AMIT25TA9 PO; +AMLO10TA5 PO; -APIX5TAB3 PO; +ASPI-1071 PO; +BACL20TA PO; +CLOP-32 PO; -HYDR-3964 PO; -MULT-1085 PO; -TRAZ-251 PO; -VIT C PO; -VIT D PO
[2024-04-11 09:46] VITALS: BP 126/68; PULSE 85; RESP 18; TEMP 97.7
[2024-04-11] MEDS ORDERED: bacitracin ointment unit dose packet TP SCH (11:21)
[2024-04-11 11:59] VITALS: BP 135/72; PULSE 81; RESP 12; O2SAT 99
[2024-04-11] MEDS: bacitracin 15gm ointment TP SCH (12:07)
[2024-04-11] MEDS ORDERED: PREG150C47 PO (21:33)
[2024-04-11] MEDS ORDERED: FURO20TA4 (21:33)
== END 2024-04-11 11:35 | disposition home or self-care (01) ==
LOC: GI LAB 09:03
PROVIDERS: ATTEND Internal Medicine Gastroenterology
DX: K94.23 Gastrostomy malfunction (principal); I10 Essential (primary) hypertension; I48.91 Unspecified atrial fibrillation; Z87.891 Personal history of nicotine dependence
CPT/HCPCS: 99202; A4314; B4087; J7030

== ENCOUNTER 2024-04-11 14:07 | Inpatient (IN) | payer MEDICARE ==
[~2024-04-11] VITALS: Ht 177.8 cm; Wt 78.0 kg
[2024-04-11] MEDS ORDERED: diatrozoate meglu/diatrozoate sod (37% iodine) 120ML oral solution PO ONE (16:10)
[2024-04-11] MEDS: diatrozoate meglu/diatrozoate sod (37% iodine) 120ML oral solution PO ONE (16:30)
[2024-04-11] MEDS: diatr meglu/diatrizoate 30ml oral sol.-(3 dose) bottle PO ONE ×2 (16:31)
[2024-04-11 17:24] VITALS: BP 142/71; PULSE 96; RESP 16
[2024-04-11] MEDS ORDERED: simethicone 40mg/0.6ml oral drops 30ml ONE (17:55)
[2024-04-11] MEDS ORDERED: fentaNYL/PF 50MCG/1 ML 2ML syringe ONE (17:56)
[2024-04-11] MEDS ORDERED: MIDAZolam 1 MG/ML 5ML VIAL ONE (17:57)
[2024-04-11 18:20] VITALS: BP 156/54; PULSE 97; RESP 18; O2SAT 96
[2024-04-11 18:30] VITALS: BP 155/52; PULSE 18; RESP 19; O2SAT 92
[2024-04-11 18:40] VITALS: BP 154/63; PULSE 99; RESP 21; O2SAT 97
[2024-04-11] MEDS: ceFAZolin 2gm in dextrose, iso 50 ML IV ONE (18:47)
[2024-04-11 18:50] VITALS: BP 162/70; PULSE 91; RESP 12; O2SAT 98
[2024-04-11 19:28] LABS: BASOPHILS # (AUTO) 0.1 X10'3 (0-0.2); BASOPHILS % (AUTO) 0.9 % (0-1); EOSINOPHILS # (AUTO) 0.1 X10'3 (0-0.9); EOSINOPHILS % (AUTO) 0.6 % (0-6); HEMATOCRIT 37.1 % (42.0-52.0); HEMOGLOBIN 12.8 g/dl (14.0-17.9); LYMPHOCYTES % (AUTO) 7.2 % (21-51); MEAN CORPUSCULAR HEMOGLOBIN 30.9 PG (27.0-31.0); MEAN CORPUSCULAR HGB CONC 34.5 g/dL (33.0-36.5); MEAN CORPUSCULAR VOLUME 89.4 FL (78-98); MEAN PLATELET VOLUME 7.4 FL (7.4-10.4); MONOCYTES # (AUTO) 0.6 X10'3 (0-0.9); MONOCYTES % (AUTO) 4.6 % (2-12); NEUTROPHILS # (AUTO) 11.6 X10'3 (1.8-7.7); NEUTROPHILS % (AUTO) 86.7 % (42-75); PLATELET COUNT 244 X10'3 (140-440); RED BLOOD COUNT 4.15 X10'6 (4.70-6.10); RED CELL DISTRIBUTION WIDTH 14.5 % (11.5-14.5); WHITE BLOOD COUNT 13.3 X10'3 (4.5-11.0)
[2024-04-11] MEDS: normal saline 1000ML IV soln IVB ONE (19:33)
[2024-04-11] MEDS: piperacillin/tazo 3.375gm/50ml 50 ML IV ONE (19:34)
[2024-04-11 19:44] LABS: ALANINE AMINOTRANSFERASE 35 U/L (12-78); ALBUMIN 3.5 G/DL (3.4-5.0); ALBUMIN/GLOBULIN RATIO 0.8 (1.1-1.5); ALKALINE PHOSPHATASE 121 IU/L (46-116); ANION GAP 9 (8-16); ASPARTATE AMINO TRANSFERASE 26 U/L (10-37); BILIRUBIN,TOTAL 0.9 MG/DL (0.1-1.0); BLOOD UREA NITROGEN 11 MG/DL (7-18); CALCIUM 8.7 MG/DL (8.5-10.1); CHLORIDE 103 MMOL/L (99-107); CREATININE 0.58 MG/DL (0.60-1.10); GLUCOSE 108 MG/DL (70-104); SODIUM 138 MMOL/L (135-145); eCRCL 117 ML/MIN; eGFR > 90 ML/MIN
[2024-04-11] MEDS ORDERED: FURO20TA4 (21:33)
[2024-04-11] MEDS ORDERED: PREG150C47 PO (21:33)
[2024-04-11] MEDS ORDERED: ondansetron/PF 4mg/2ml inj IV PRN (21:45)
[2024-04-11] MEDS ORDERED: mag hydrox/Alum hydrox/simeth 30ml oral suspension PO PRN (21:45)
[2024-04-11] MEDS ORDERED: acetaminophen 325mg tablet PO PRN (21:45)
[2024-04-11] MEDS ORDERED: morphine 2 MG/ML inj. syringe IV PRN ×2 (21:45)
[2024-04-11] MEDS ORDERED: magnesium sulf-water 4G/100mL 100 ML IV PRN (21:45)
[2024-04-11] MEDS ORDERED: magnesium hydroxide 30ml (MOM) UD suspension PO PRN (21:45)
[2024-04-11] MEDS ORDERED: potassium Cl 40MEQ/1/2NS 520ml 520 ML IV PRN (21:45)
[2024-04-11] MEDS ORDERED: potassium Cl 20 mEq SR tablet PO PRN ×2 (21:45)
[2024-04-11] MEDS ORDERED: magnesium sulf-water 2g/50mL 50 ML IV PRN (21:45)
[2024-04-11] MEDS ORDERED: magnesium Cl slow-release 64mg tablet PO PRN (21:45)
[2024-04-11 22:30] VITALS: BP 134/58; PULSE 89; RESP 14; TEMP 98; O2SAT 96
[2024-04-11 22:32] LABS: MAGNESIUM 1.7 MG/DL (1.5-2.4); PHOSPHORUS 3.6 MG/DL (2.3-4.5)
[2024-04-11] MEDS: diatr meglu/diatrizoate 30ml oral sol.-(3 dose) bottle PO SCH (23:02)
[2024-04-11] MEDS: normal saline 1000ml 1,000 ML IV SCH (23:02)
[2024-04-12] VITALS (8 sets, daily range): BP systolic 109–120; BP diastolic 55–70; PULSE 60–91; RESP 13–17; TEMP 97.6–99.1; O2SAT 90–97
[2024-04-12] MEDS: piperacillin/tazo 3.375gm/50ml 50 ML IV SCH (00:18)
[2024-04-12] MEDS: gabapentin 300mg capsule PO ONE (00:18)
[2024-04-12] MEDS ORDERED: hydrALAZINE 20mg/ml inj. IV SCH (02:00)
[2024-04-12 02:16] LABS: BILIRUBIN,URINE NEGATIVE (Neg); CLARITY,URINE SLIGHTLY CLOUDY (Clear); COLOR,URINE YELLOW (Yellow); GLUCOSE, URINE NEGATIVE (Neg); KETONES,URINE 15 mg/dl (Neg); LEUKOCYTE ESTERASE ,URINE LARGE (Neg); NITRITES, URINE POSITIVE (Neg); OCCULT BLOOD,URINE SMALL (Neg); PROTEIN,URINE NEGATIVE (Neg); UROBILINOGEN,URINE 0.2 E.U/dL (0.2-1.0)
[2024-04-12 02:19] LABS: UA COLLECTION TYPE NON-SPECIFIED
[2024-04-12 02:20] LABS: BACTERIA,URINE 3+ /HPF (Neg); SQUAMOUS EPITHELIAL CELL,UR FEW /LPF (FEW)
[2024-04-12 02:21] LABS: WBC,URINE 20-30 /HPF (0-4)
[2024-04-12] MEDS ORDERED: hydrALAZINE 20mg/ml inj. IV PRN (02:35)
[2024-04-12 06:01] LABS: BASOPHILS # (AUTO) 0.1 X10'3 (0-0.2); BASOPHILS % (AUTO) 0.5 % (0-1); EOSINOPHILS # (AUTO) 0.1 X10'3 (0-0.9); EOSINOPHILS % (AUTO) 0.8 % (0-6); HEMATOCRIT 34.5 % (42.0-52.0); HEMOGLOBIN 11.7 g/dl (14.0-17.9); LYMPHOCYTES # (AUTO) 1.4 X10'3 (1.1-4.8); LYMPHOCYTES % (AUTO) 12.2 % (21-51); MEAN CORPUSCULAR HEMOGLOBIN 30.9 PG (27.0-31.0); MEAN CORPUSCULAR HGB CONC 33.9 g/dL (33.0-36.5); MEAN PLATELET VOLUME 7.9 FL (7.4-10.4); MONOCYTES % (AUTO) 8.2 % (2-12); NEUTROPHILS # (AUTO) 9.1 X10'3 (1.8-7.7); NEUTROPHILS % (AUTO) 78.3 % (42-75); PLATELET COUNT 242 X10'3 (140-440); RED BLOOD COUNT 3.79 X10'6 (4.70-6.10); RED CELL DISTRIBUTION WIDTH 14.6 % (11.5-14.5); WHITE BLOOD COUNT 11.6 X10'3 (4.5-11.0)
[2024-04-12 06:16] LABS: ALANINE AMINOTRANSFERASE 28 U/L (12-78); ALBUMIN 3.1 G/DL (3.4-5.0); ALBUMIN/GLOBULIN RATIO 0.8 (1.1-1.5); ALKALINE PHOSPHATASE 105 IU/L (46-116); ANION GAP 8 (8-16); ASPARTATE AMINO TRANSFERASE 20 U/L (10-37); BILIRUBIN,TOTAL 0.8 MG/DL (0.1-1.0); BLOOD UREA NITROGEN 9 MG/DL (7-18); BUN/CREATININE RATIO 19.1 (10.0-20.0); CALCIUM 8.8 MG/DL (8.5-10.1); CHLORIDE 109 MMOL/L (99-107); CREATININE 0.47 MG/DL (0.60-1.10); GLUCOSE 79 MG/DL (70-104); POTASSIUM 3.8 MMOL/L (3.5-5.1); SODIUM 144 MMOL/L (135-145); TOTAL CARBON DIOXIDE 26.9 MMOL/L (24-32); TOTAL PROTEIN 7.1 G/DL (6.4-8.2); eCRCL 145 ML/MIN; eGFR > 90 ML/MIN
[2024-04-12] MEDS ORDERED: acetaminophen 325mg tablet PEG PRN (07:58)
[2024-04-12] MEDS ORDERED: baclofen 10mg tablet PO SCH (08:00)
[2024-04-12] MEDS ORDERED: pregabalin 75mg capsule PO SCH (08:00)
[2024-04-12] MEDS ORDERED: clopidogrel 75mg tablet PO SCH (08:00)
[2024-04-12] MEDS: K and/or MAG REPLACEMENT MC SCH (08:00)
[2024-04-12] MEDS ORDERED: GABAPENTIN 300 MG/6 ML oral SOLUTION cup JT SCH (08:00)
[2024-04-12] MEDS ORDERED: gabapentin 300mg capsule PO SCH (08:00)
[2024-04-12] MEDS ORDERED: amLODIPine 5mg tablet PO SCH (08:00)
[2024-04-12] MEDS ORDERED: enoxaparin 40mg/0.4ml syringe SUBCUT SCH (08:00)
[2024-04-12] MEDS: baclofen 10mg tablet PEG SCH (08:04)
[2024-04-12] MEDS: pregabalin 75mg capsule PEG SCH (08:04)
[2024-04-12] MEDS: GABAPENTIN 300 MG/6 ML oral SOLUTION cup PEG SCH (09:29)
[2024-04-12] MEDS: amitriptyline 25mg tablet PEG SCH (21:10)
[2024-04-12] MEDS: dextrose 50%-water 50ml dispensing syringe IV ONE (21:35)
[2024-04-13 06:00] VITALS: BP 111/62; PULSE 68; RESP 13; TEMP 97.2; O2SAT 98
[2024-04-13 06:12] LABS: BASOPHILS # (AUTO) 0.1 X10'3 (0-0.2); BASOPHILS % (AUTO) 0.5 % (0-1); EOSINOPHILS # (AUTO) 0.3 X10'3 (0-0.9); EOSINOPHILS % (AUTO) 2.4 % (0-6); HEMOGLOBIN 11.7 g/dl (14.0-17.9); LYMPHOCYTES # (AUTO) 1.5 X10'3 (1.1-4.8); LYMPHOCYTES % (AUTO) 13.7 % (21-51); MEAN CORPUSCULAR HEMOGLOBIN 31.1 PG (27.0-31.0); MEAN CORPUSCULAR HGB CONC 34.3 g/dL (33.0-36.5); MEAN CORPUSCULAR VOLUME 90.6 FL (78-98); MEAN PLATELET VOLUME 7.5 FL (7.4-10.4); MONOCYTES # (AUTO) 0.9 X10'3 (0-0.9); MONOCYTES % (AUTO) 8.4 % (2-12); NEUTROPHILS # (AUTO) 8.2 X10'3 (1.8-7.7); PLATELET COUNT 247 X10'3 (140-440); RED BLOOD COUNT 3.76 X10'6 (4.70-6.10); RED CELL DISTRIBUTION WIDTH 14.4 % (11.5-14.5)
[2024-04-13 06:43] LABS: ALANINE AMINOTRANSFERASE 23 U/L (12-78); ALBUMIN 2.8 G/DL (3.4-5.0); ALBUMIN/GLOBULIN RATIO 0.7 (1.1-1.5); ALKALINE PHOSPHATASE 94 IU/L (46-116); ANION GAP 10 (8-16); ASPARTATE AMINO TRANSFERASE 20 U/L (10-37); BILIRUBIN,TOTAL 0.7 MG/DL (0.1-1.0); BLOOD UREA NITROGEN 8 MG/DL (7-18); BUN/CREATININE RATIO 14.3 (10.0-20.0); CALCIUM 8.6 MG/DL (8.5-10.1); CHLORIDE 106 MMOL/L (99-107); CREATININE 0.56 MG/DL (0.60-1.10); GLUCOSE 107 MG/DL (70-104); POTASSIUM 3.3 MMOL/L (3.5-5.1); SODIUM 141 MMOL/L (135-145); TOTAL CARBON DIOXIDE 25.4 MMOL/L (24-32); TOTAL PROTEIN 6.9 G/DL (6.4-8.2); eCRCL 121 ML/MIN; eGFR > 90 ML/MIN
[2024-04-13] MEDS ORDERED: POTASSIUM CHLORIDE 20 MEQ/15 ML oral solution PO PRN (08:16)
[2024-04-13] MEDS ORDERED: mag hydrox/Alum hydrox/simeth 30ml oral suspension PEG PRN (08:17)
[2024-04-13] MEDS ORDERED: POTASSIUM CHLORIDE 20 MEQ/15 ML oral solution PEG PRN (08:17)
[2024-04-13] MEDS ORDERED: magnesium hydroxide 30ml (MOM) UD suspension PEG PRN (08:17)
[2024-04-13] MEDS: POTASSIUM CHLORIDE 20 MEQ/15 ML oral solution PEG PRN (08:36)
[2024-04-13] MEDS ORDERED: CIPR-202 PEG (10:49)
[2024-04-13] MEDS ORDERED: METR-159 PO (10:59)
[2024-04-13] MEDS ORDERED: ACET-890 PO (15:10)
== END 2024-04-13 12:12 | disposition home or self-care (01) | DRG 871 ==
LOC: ER 14:07 → ED HOLD 21:37 → SUR 3N 22:00
PROVIDERS: ADMIT Internal Medicine Pulmonary Disease; ATTEND Internal Medicine
PROC: 0DP68UZ Removal of Feeding Device from Stomach, Via Natural or Artificial Opening Endoscopic (ICD-10-PCS; principal; 2024-04-11)
PROC: 0DH68UZ Insertion of Feeding Device into Stomach, Via Natural or Artificial Opening Endoscopic (ICD-10-PCS; 2024-04-11)
DX: A41.9 Sepsis, unspecified organism (principal); K65.9 Peritonitis, unspecified; K94.23 Gastrostomy malfunction; I69.351 Hemiplegia and hemiparesis following cerebral infarction affecting right dominant side; G82.20 Paraplegia, unspecified; N31.2 Flaccid neuropathic bladder, not elsewhere classified; I10 Essential (primary) hypertension; I48.0 Paroxysmal atrial fibrillation; L98.419 Non-pressure chronic ulcer of buttock with unspecified severity; Z79.899 Other long term (current) drug therapy; Z79.82 Long term (current) use of aspirin; Z99.3 Dependence on wheelchair; Y83.8 Other surgical procedures as the cause of abnormal reaction of the patient, or of later complication, without mention of misadventure at the time of the procedure; Y82.8 Other medical devices associated with adverse incidents; Y92.89 Other specified places as the place of occurrence of the external cause
CPT/HCPCS: 36415; 43246; 74018; 74176; 80053; 81001; 82948; 83735; 84100; 84145; 85025; 87077; 87081; 87088; 87186; 92508; 92616; 99152; 99153; 99202; 99285; A4314; A4358; A4421; A4620; A4649; A5200; A6212; A6213; A6449; B4087; G0378; J0690; J2250; J2543; J3010; J3490; J7030; Q9963

== ENCOUNTER 2024-04-29 08:35 | Outpatient (CLI) | payer MEDICARE ==
[~2024-04-29 08:35] MED LIST changes: -ACET-1015 PO; +ACET-890 PO
== END 2024-04-29 23:59 | disposition home or self-care (01) ==
LOC: RAD 08:35
PROVIDERS: ATTEND Physician Assistant Surgical
DX: R13.10 Dysphagia, unspecified (principal); I69.391 Dysphagia following cerebral infarction
CPT/HCPCS: 74230

== ENCOUNTER 2024-05-19 08:17 | Inpatient (IN) | payer MEDICARE ==
--- NOTE | 2024-05-13 13:51 | ELECTROCARDIOGRAPH REPORT ---
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 VIV Escobar Measurements Intervals [place] Rate: 61 P: 0 OR: 0 QRS: 8 QRSD: 180 T: 59 QT: 408 QTc: 411 Interpretive Statements Atrial fibrillation Nonspecific intraventricular conduction delay Electronically Signed On 05-14-2024 10:59:[address] VIV Escobar Please click the below link to view image of tracing.
[2024-05-13 14:11] LABS: BASOPHILS # (AUTO) 0.1 X10'3 (0-0.2); BASOPHILS % (AUTO) 0.6 % (0-1); EOSINOPHILS # (AUTO) 0.3 X10'3 (0-0.9); EOSINOPHILS % (AUTO) 3.2 % (0-6); LYMPHOCYTES # (AUTO) 1.4 X10'3 (1.1-4.8); LYMPHOCYTES % (AUTO) 15.8 % (21-51); MEAN CORPUSCULAR HEMOGLOBIN 29.9 PG (27.0-31.0); MEAN CORPUSCULAR HGB CONC 33.5 g/dL (33.0-36.5); MEAN CORPUSCULAR VOLUME 89.4 FL (78-98); MEAN PLATELET VOLUME 7.7 FL (7.4-10.4); MONOCYTES # (AUTO) 0.7 X10'3 (0-0.9); MONOCYTES % (AUTO) 7.7 % (2-12); NEUTROPHILS # (AUTO) 6.5 X10'3 (1.8-7.7); NEUTROPHILS % (AUTO) 72.7 % (42-75); PRE OP HEMATOCRIT 40.7 % (42.0-52.0); PRE OP HEMOGLOBIN 13.6 g/dL (14.0-17.9); PRE OP PLATELET COUNT 231 X10'3 (140-440); RED BLOOD COUNT 4.55 X10'6 (4.70-6.10); RED CELL DISTRIBUTION WIDTH 14.1 % (11.5-14.5)
[2024-05-13 14:22] LABS: BILIRUBIN,URINE NEGATIVE (Neg); CLARITY,URINE SLIGHTLY CLOUDY (Clear); COLOR,URINE YELLOW (Yellow); GLUCOSE, URINE NEGATIVE (Neg); KETONES,URINE NEGATIVE (Neg); LEUKOCYTE ESTERASE ,URINE LARGE (Neg); OCCULT BLOOD,URINE TRACE-INTACT (Neg); PROTEIN,URINE NEGATIVE (Neg); UROBILINOGEN,URINE 0.2 E.U/dL (0.2-1.0)
[2024-05-13 14:27] LABS: PRE OP INR 1.1 INR; PRE OP PROTIME 11.4 SECONDS (9.0-12.0)
[2024-05-13 14:28] LABS: UA COLLECTION TYPE OTHER
[2024-05-13 14:29] LABS: NITRITES, URINE POSITIVE (Neg)
[2024-05-13 14:31] LABS: BACTERIA,URINE 1+ /HPF (Neg); MUCUS STRANDS FEW /LPF (Neg); RBC,URINE 0-2 /HPF (0-2); SQUAMOUS EPITHELIAL CELL,UR NONE SEEN /LPF (FEW); WBC,URINE 20-30 /HPF (0-4)
[2024-05-13 14:31] LABS: ALKALINE PHOSPHATASE 115 IU/L (46-116); BLOOD UREA NITROGEN 14 MG/DL (7-18); BUN/CREATININE RATIO 25.9 (10.0-20.0); CALCIUM 9.4 MG/DL (8.5-10.1); CHLORIDE 102 MMOL/L (99-107); CREATININE 0.54 MG/DL (0.60-1.10); PRE OP ALT 25 U/L (30-65); PRE OP ANION GAP 6 (8-16); PRE OP AST 14 U/L (10-37); PRE OP BILIRUB, TOTAL 0.6 MG/DL (0.0-1.0); PRE OP GLUCOSE 117 MG/DL (70-104); PRE OP POTASSIUM 4.6 MMOL/L (3.4-5.1); PRE OP SODIUM 139 MMOL/L (135-145); TOTAL CARBON DIOXIDE 30.9 MMOL/L (24-32); eGFR > 90 ML/MIN
--- NOTE | 2024-05-13 14:35 | RADIOLOGY REPORT ---
CHEST RADIOGRAPH Indication: Pain Technique: Frontal and lateral view of the chest was obtained Comparison: DI CHEST,TWO VIEWS on DOS: 04/07/24 FINDINGS: Lines and Tubes: None Lungs: Clear Pleura: No effusion. No pneumothorax. Cardiomediastinal contours: Unremarkable Bones: Unremarkable IMPRESSION: No evidence of acute disease.
[~2024-05-19] VITALS: Ht 177.8 cm; Wt 87.0 kg
[2024-05-19] VITALS (43 sets, daily range): BP systolic 111–149; BP diastolic 44–84; PULSE 64–151; RESP 7–33; TEMP 97.5–97.8; O2SAT 48–100
[2024-05-19] MEDS: ceFAZolin 2gm in dextrose, iso 50 ML IV ONE (05:30)
[~2024-05-19 08:17] MED LIST changes: +ACET-1017 PO; -ACET-890 PO; -BACL20TA PO; -CELE-193 PO; +atropine 0.1mg/ml 10ml syringe ONE; +epiNEPHrine 0.1mg/ml 10ml syringe ONE; +ondansetron/PF 4mg/2ml inj IV PRN; +phenylephrine inj 50 MG in normal saline 250ml IV solN IV SCH; +protamine sulfate 10mg/ml inj. ONE
[2024-05-19] MEDS: famotidine/PF 10 mg/ml inj IV ONE ×2 (09:00→09:53)
[2024-05-19] MEDS ORDERED: ondansetron/PF 4mg/2ml inj IV PRN (09:50)
[2024-05-19] MEDS ORDERED: hydrALAZINE 20mg/ml inj. IV PRN (09:50)
[2024-05-19] MEDS ORDERED: morphine 4 MG/ML inj SYRINge IV PRN (09:50)
[2024-05-19] MEDS ORDERED: morphine 2 MG/ML inj. syringe IV PRN (09:50)
[2024-05-19] MEDS ORDERED: labetalol 20mg/4ml (5mg/ml) syringe IV PRN ×2 (09:50→12:00)
[2024-05-19] MEDS: ringers solution, lacted 1,000 ML IV SCH ×2 (09:52→14:30)
[2024-05-19] MEDS: VANCOMYCIN/H2O 1.5g/300mL PB 300 ML IV ONE (09:53)
[2024-05-19] MEDS ORDERED: iohexol 350MG/ML 100ml bottle IV ONE (11:03)
[2024-05-19] MEDS ORDERED: midazolam 1 mg/ML 2ml injection ONE (11:08)
[2024-05-19] MEDS ORDERED: fentaNYL/PF 50MCG/1 ML 2ML syringe ONE (11:08)
[2024-05-19] MEDS ORDERED: desflurane 240ml liquid inh. IH ONE (11:11)
[2024-05-19] MEDS ORDERED: heparin 1,000unit/ml 10ml vial 10 ML ONE (11:13)
[2024-05-19] MEDS ORDERED: propofol inj 20 ML IV ONE (11:13)
[2024-05-19] MEDS ORDERED: ondansetron/PF 4mg/2ml inj ONE (11:13)
[2024-05-19] MEDS ORDERED: LIDOcaine 1%/PF 5ML 10 MG/ML VIAL ONE (11:14)
[2024-05-19] MEDS ORDERED: rocuronium 10mg/ml inj IV ONE (11:14)
[2024-05-19] MEDS ORDERED: docusate sod 100mg capsule PO PRN (12:00)
[2024-05-19] MEDS ORDERED: acetaminophen 325mg tablet PO PRN (12:00)
[2024-05-19] MEDS ORDERED: pantoprazole 40mg Tablet.DR PO PRN (12:00)
[2024-05-19] MEDS ORDERED: diphenhydrAMINE 25mg capsule PO PRN (12:00)
[2024-05-19] MEDS ORDERED: potassium CL 10mEq/100ml bag 100 ML IV PRN (12:00)
[2024-05-19] MEDS ORDERED: proCHLORperazine 10 MG/2 ml inj IV PRN (12:00)
[2024-05-19] MEDS ORDERED: potassium Cl 40MEQ/270ML bag 250 ML IV PRN (12:00)
[2024-05-19] MEDS ORDERED: potassium Cl 20 mEq SR tablet PO PRN (12:00)
--- NOTE | 2024-05-19 12:02 | OPERATIVE REPORT ---
Operative Report Providers to CC CC: JARRED PELAEZ MD ~ Date of Procedure: May 19, 2024 Pre-Operative Diagnosis: Atrial Fibrillation with high bleeding risk Post-Operative Diagnosis SAME as PRE-Op Procedure Performed 1. Transseptal Puncture via SOWMYA guidance 2. Left Atrial Appendogram 3. Left Atrial Appendage closure with 27mm Watchman FLX Pro Pro Device 4. Ultrasound guided access, right Femoral Vein Surgeon: Diogo Pelaez MD Hoop Expander n/a Anesthesiologist: Victor M Graham Type of Anesthesia: General Findings: Left Atrial appendage amenable to percutaneous closure. Complications none Prosthetics\\Implants used: 27mm Watchman Flx Pro Estimated Blood Loss: Minimal Specimen Removed: None Description of Procedure: The patient was brought to the laborer laboratory in a fasting state. They underwent General anesthesia. Ultrasound was used to guide access to the right femoral vein where two bella-cross Perclose devices were placed and upsized to an 8Fr sheath. Heparin was given to maintain an ACT over 250 seconds. An 0.035" wire was advanced into the SVC. The 8Fr sheath was then removed and the 8.5Fr VersaCross Transseptal sheath was advanced into the SVC. The RF wire was then advanced to the tip of the sheath/dilator. Using SOWMYA guidance, appropriate position of the tip of the sheath was determined and using an energized wire tip, advanced into the left atrium. The sheath and dilator were then advanced over the wire into the left atrium. Over the wire, the Versacross sheath was removed and exchanged for the Watchman Sheath. The wire and dilator were then removed and exchanged for a 5Fr pigtail catheter which was placed into the left atrial appendage and an appendogram performed in the LAWRENCE-Caudal position. There, ACT was confirmed to be therapeutic. The Watchman sheath was then advanced into the left atrial appendage over the pigtail catheter. Once appropriate position was determined, the pigtail was removed, the 27mm Watchman FLX device and delivery system were advanced into the tip of the sheath. The delivery system was advanced until an appropriate FLX ball was formed. The guide was then retracted and the Watchman device was unsheathed will full deployment in the appendage. Next, PASS criteria was performed confirming adequate positioning and anchoring(using a tug-test), sizing showing adequate compression, and no significant leak around the device. Another Appendogram was performed confirming placement. The device was then released from the delivery system. The guide and delivery system were removed and the perclose tied as well as the [id number]-rh-[id number] suture, ensuring adequate hemostasis. Mean LA Presssure: 10mmHg Contrast: 45cc ACT: 279s Device Compression: 18-26% RESULTS: 1. Successful Left-Atrial Appendage closure with a 27mm Watchman FLX Pro device 2. Right Femoral Vein access, closed with Perclose x 2 and Xusfxo-np-Puudu suture 3. Continue ASA 81mg QD indefinitely, plavix 75mg QD x 6 months with imaging at 45 days. Will image with CT ODIN protocol given difficult SOWMYA They will be watched in the recovery area until stable, then transferred to the telemetry at that time. DIOGO PELAEZ MD May 19, 2024 12:02
--- NOTE | 2024-05-19 12:26 | ELECTROCARDIOGRAPH REPORT ---
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 VIV Escobar Measurements Intervals [place] Rate: 66 P: 0 [place]: 0 QRS: -2 QRSD: 93 T: 20 QT: 443 QTc: 465 Interpretive Statements Atrial fibrillation Borderline low voltage, extremity leads Electronically Signed On 05-19-2024 18:58:[address] VIV Escobar Please click the below link to view image of tracing.
[2024-05-19] MEDS ORDERED: non-formulary drug (Acetaminophen 1 TAB) PO SCH (13:00)
[2024-05-19] MEDS: normal saline 1000ml 1,000 ML IV SCH (13:12)
[2024-05-19] MEDS: protamine sulf. 10mg/ml inj. IV ONE (13:47)
[2024-05-19] MEDS: MIDAZolam 5mg/ml 2ml vial ONE (14:30)
[2024-05-19] MEDS ORDERED: phenylephrine 10mg/ml inj. ONE (14:51)
[2024-05-19] MEDS: phenylephrine inj 50 MG in normal saline 250ml IV solN IV SCH (15:10)
[2024-05-19] MEDS ORDERED: LIDOcaine 1% (10mg/ml) 2ml vial ONE (15:28)
[2024-05-19] MEDS: nitroPRUSSIDE (NIPRIDE) (200MCG/ML) 100ML Drip IV SCH (15:30)
[2024-05-19] MEDS: fentaNYL/PF 50MCG/1 ML 2ML syringe ONE (15:34)
[2024-05-19] MEDS: verapamil 2.5 mg/ml inj IV ONE (15:35)
[2024-05-19] MEDS: fentaNYL/PF 50MCG/1 ML 2ML syringe IV ONE (15:45)
[2024-05-19] MEDS: vasopressin inj. 40 UNIT in normal saline 50ml IV soln 38 ML IV SCH ×2 (15:45→22:19)
--- NOTE | 2024-05-19 15:58 | RADIOLOGY REPORT ---
EXAM: DI CHEST,SINGLE VIEW TECHNIQUE: Single frontal chest radiograph CLINICAL HISTORY: CODE BLUE/ S/P TRACH COMPARISON: None Findings/Impression: Frontal chest radiograph demonstrates no acute osseous or superficial soft tissue abnormalities. Tracheostomy tube terminates at the level of the clavicles. The trachea is midline. Mild cardiomegaly with pulmonary vascular congestion. No pneumothorax, pleural effusions, or consolidations.
[2024-05-19] MEDS: gabapentin 300mg capsule PO SCH (16:00)
[2024-05-19] MEDS: sod chloride 0.9% 10ml flush syringe IV SCH (16:00)
[2024-05-19 16:05] LABS: BASOPHILS # (AUTO) 0.1 X10'3 (0-0.2); BASOPHILS % (AUTO) 0.3 % (0-1); EOSINOPHILS # (AUTO) 0.1 X10'3 (0-0.9); EOSINOPHILS % (AUTO) 0.2 % (0-6); HEMATOCRIT 35.1 % (42.0-52.0); HEMOGLOBIN 11.4 g/dl (14.0-17.9); LYMPHOCYTES # (AUTO) 2.3 X10'3 (1.1-4.8); LYMPHOCYTES % (AUTO) 6.8 % (21-51); MEAN CORPUSCULAR HEMOGLOBIN 29.5 PG (27.0-31.0); MEAN CORPUSCULAR HGB CONC 32.4 g/dL (33.0-36.5); MEAN PLATELET VOLUME 7.8 FL (7.4-10.4); MONOCYTES # (AUTO) 0.6 X10'3 (0-0.9); MONOCYTES % (AUTO) 1.9 % (2-12); NEUTROPHILS # (AUTO) 30.8 X10'3 (1.8-7.7); NEUTROPHILS % (AUTO) 90.8 % (42-75); PLATELET COUNT 347 X10'3 (140-440); RED BLOOD COUNT 3.86 X10'6 (4.70-6.10); RED CELL DISTRIBUTION WIDTH 14.3 % (11.5-14.5)
[2024-05-19 16:18] LABS: WHITE BLOOD COUNT 33.9 X10'3 (4.5-11.0)
[2024-05-19 16:24] LABS: ALANINE AMINOTRANSFERASE 19 U/L (12-78); ALBUMIN 3.3 G/DL (3.4-5.0); ALBUMIN/GLOBULIN RATIO 0.9 (1.1-1.5); ANION GAP 18 (8-16); ASPARTATE AMINO TRANSFERASE 20 U/L (10-37); BILIRUBIN,TOTAL 0.8 MG/DL (0.1-1.0); BLOOD UREA NITROGEN 12 MG/DL (7-18); BUN/CREATININE RATIO 13.6 (10.0-20.0); CALCIUM 8.2 MG/DL (8.5-10.1); CHLORIDE 103 MMOL/L (99-107); CREATININE 0.88 MG/DL (0.60-1.10); GLUCOSE 321 MG/DL (70-104); POTASSIUM 3.5 MMOL/L (3.5-5.1); SODIUM 140 MMOL/L (135-145); TOTAL CARBON DIOXIDE 19.1 MMOL/L (24-32); eCRCL 77 ML/MIN; eGFR 85 ML/MIN
[2024-05-19 16:25] LABS: ALKALINE PHOSPHATASE 109 IU/L (46-116)
--- NOTE | 2024-05-19 16:31 | CARDIOLOGY REPORT ---
APPROVED REPORT EXAM: Focused, limited intraprocedural transesophageal 2D, spectral and color flow Doppler echocardio gram during WATCHMAN deployment. 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 LVEF is 55-60%. RIGHT VENTRICLE RV appears mildly dilated with normal contractility. ATRIA LA appears moderately dilated. Windsock shaped appendage without thrombus detected. Left upper pulmon manasa vein identified. Intact interatrial septum. Width / length averages are: 0degr - 19 x 24 mm; 45de gr - 16 x 25 mm; 90degr - 15 x 27 mm; 135degr 19 x 29 mm. Loop 23: Septal tenting visualized with RF atrial septal puncture performed. Loop 24: Wire in LA. Loop 27: Pigtail advanced to tip of appendage. LA pressure is measured at: 10 mmHG. Loop 28: Appendagram performed. Loop 29: Flex ball deployed. 2 7 mm Watchman FLX device, PASS criteria attempted, successfully. Loop 31: Successful "TUG" test perfo rmed. PASS reassessed. Optimal compression obtained - shoulder to shoulder measurement is: 20.75 mm. Device released. Patent interatrial septum with small residual left to right shunt (s/p transseptal p uncture). Successfully occluded left atrial appendage with Watchman device well positioned without th rombus. No residual flow around device detected. No pericardial effusion post-implant. GREAT VESSELS Ascending aorta is normal in size. PERICARDIUM There is no pericardial effusion. CONCLUSION LV appears normal in size with mild concentric hypertrophy. LVEF is 55-60%. RV appears mildly dilated with normal contractility. LA appears moderately dilated. Windsock shaped appendage without thrombus detected. Left upper pulmonary vein identified. Intact interatrial septum. Width / length averages a re: 0degr - 19 x 24 mm; 45degr - 16 x 25 mm; 90degr - 15 x 27 mm; 135degr 19 x 29 mm. Loop 23: Septal tenting visualized with RF atrial septal puncture performed. Loop 24: Wire in LA. Loop 27: Pigtail a dvanced to tip of appendage. LA pressure is measured at: 10 mmHG. Loop 28: Appendagram performed. Lo op 29: Flex ball deployed. 27 mm Watchman FLX device, PASS criteria attempted, successfully. Loop 31: Successful "TUG" test performed. PASS reassessed. Optimal compression obtained - shoulder to shoulde r measurement is: 20.75 mm. Device released. Patent interatrial septum with small residual left to ri ght shunt (s/p transseptal puncture). Successfully occluded left atrial appendage with Watchman devic e well positioned without thrombus. No residual flow around device detected. No pericardial effusion post-implant. There is no pericardial effusion. Conclusion LV appears normal in size with mild concentric hypertrophy. LVEF is 55-60%. RV appears mildly dilated with normal contractility. LA appears moderately dilated. Windsock shaped appendage without thrombus detected. Left upper pulmon manasa vein identified. Intact interatrial septum. Width / length averages are: 0degr - 19 x 24 mm; 45d egr - 16 x 25 mm; 90degr - 15 x 27 mm; 135degr 19 x 29 mm. Loop 23: Septal tenting visualized with R F atrial septal puncture performed. Loop 24: Wire in LA. Loop 27: Pigtail advanced to tip of appen dage. LA pressure is measured at: 10 mmHG. Loop 28: Appendagram performed. Loop 29: Flex ball dep loyed. 27 mm Watchman FLX device, PASS criteria attempted, successfully. Loop 31: Successful "TUG" te st performed. PASS reassessed. Optimal compression obtained - shoulder to shoulder measurement is: 2 0.75 mm. Device released. Patent interatrial septum with small residual left to right shunt (s/p tr ansseptal puncture). Successfully occluded left atrial appendage with Watchman device well positione d without thrombus. No residual flow around device detected. No pericardial effusion post-implant. There is no pericardial effusion.
[2024-05-19] MEDS: FENTANYL-0.9 % NACL/PF 100 ML IV SCH (16:32)
[2024-05-19] MEDS: midazolam 100mg in NS 100ml 100 ML IV PRN (16:33)
--- NOTE | 2024-05-19 16:33 | PROGRESS NOTE ---
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 Patient is awake and able to maintain the airway in the recovery room. Because of use of heparin for the procedure,patient continue to bleed and complain of clots. To reduce pharyngeal bleeding ,Patient recieved protamine. Unfortunately the more times to clear bleeding and clots, more mucosal trauma of pharynx .bleding and clot formation. Patient is unable clear the airway himself and end up airway obstruction ,hypoxia. A code is called. I did multiple glide scope video laryngoscopy attempts to assess the airway, intubate. The entire mc pharynx is bloody and huge clots obstructing the glottis. I could not clear the airway or identify anatomy clearly to intubate. Dr Moffett hot worker did fiber optic bronchoscope to secure air way unsuccessfully. An emergency tracheotomy is attempted by Radha ARRIAGA, Later Dr morin successfully put a tracheotomy tube and CPR was successfully. with 100% saturation and Blood pressure of 140/90. Patient is transferred to ICU. Dr Pelaez and me updated patient of the events and answered the questions. ELISSA ORTIZ MD May 19, 2024 16:33
[2024-05-19] MEDS: midazolam 1 mg/ML 2ml injection IV ONE (16:34)
[2024-05-19 17:18] LABS: PLATELET ESTIMATE NORMAL; TOTAL CELLS COUNTED 100
[2024-05-19 17:33] LABS: ABG BASE EXCESS -15.5 mmol/L (-2.0-3.0); ABG HCO3 12.8 mmol/L (21.0-28.0); ABG OXYGEN SATURATION 99.7 % (94.0-98.0); ABG PCO2 (T) 37.9 mmHg (35.0-48.0); ABG PH (T) 7.144 (7.350-7.450); ABG PO2 (T) 248.8 mmHg (83.0-108.0); FCOHb 0.4 % (0.5-1.5); FHHb 0.3 % (0.0-5.0); FMetHb 0.1 % (0.0-1.5); FO2Hb 99.2 % (94.0-98.0); MODE VENT - AC; PATIENT TEMPERATURE 36.4; PEEP 5 cm H2O; RESPIRATORY RATE 16 b/min; TIDAL VOLUME 460 mL; TOTAL HEMOGLOBIN 13.9 G/dl (13.5-17.5)
[2024-05-19] MEDS: sodium bicarbonate (8.4%) 1 mEq/ml syringe ONE (18:14)
[2024-05-19] MEDS: NORepinephrine 8mg/ 250ml NS 250 ML IV ONE (18:34)
[2024-05-19] MEDS: ceFAZolin 1GM/D5W- ADD-VANTAGE 50 ML IV SCH (18:41)
[2024-05-19] MEDS: sodium bicarbonate 1meq/ml inj 150 ML in dextrose 5%-water 1,000 ML IV SCH (19:26)
[2024-05-19 19:28] LABS: MAGNESIUM 1.6 MG/DL (1.5-2.4); PHOSPHORUS 4.9 MG/DL (2.3-4.5); POTASSIUM 3.6 MMOL/L (3.5-5.1)
[2024-05-19] MEDS: INSULIN LISPRO 100 UNIT/ML INSULN.PEN MULTI-DOSE SQ ONE (19:29)
[2024-05-19] MEDS: NORepinephrine 8mg/ 250ml NS 250 ML IV PRN (19:58)
[2024-05-19] MEDS ORDERED: VANCOMYCIN 1GM 200ML H20 (PEG) 200 ML IV SCH (20:00)
--- NOTE | 2024-05-19 20:35 | CONSULTATION REPORT - RESIDENT ---
Consult Providers to CC Resident Creating Document: VLADIMIR CARRILLO RES History of Present Illness Reason for Admit\Complaint: Airway obstruction History of Present Illness 73-year-old male with past medical history of cerebrovascular accident with oropharyngeal dysphagia with cervical fusion with quadriplegia, he had a Watchman procedure for AFib in [employer] with history of cervical fusion short neck difficult intubation, had a difficulty of placing SOWMYA probe for Left atria appendage occlusion. Patient is awake and able to maintain the airway in the recovery room. Because of use of heparin for the procedure,patient continue to bleed and complain of clots. To reduce pharyngeal bleeding ,Patient recieved protamine. Unfortunately the more times to clear bleeding and clots, more mucosal trauma of pharynx .bleding and clot formation. Patient is unable clear the airway himself and end up airway obstruction ,hypoxia. A code is called. Respiratory Clinician did multiple glide scope video laryngoscopy attempts to assess the airway, intubate. The entire mc pharynx is bloody and huge clots obstructing the glottis and could not clear the airway or identify anatomy clearly to intubate. We were consulted for difficult intubation and airway maintenance, we did fiber optic bronchoscope to secure air way unsuccessfully. An emergency tracheotomy is attempted by Radha ARRIAGA, Later Dr morin successfully put a tracheotomy tube and CPR was successfully. with 100% saturation and Blood pressure of 140/90. Patient is transferred to ICU. Allergies: Coded Allergies: oxycodone (Verified Allergy, Unknown, HIGHTENED PAIN, 04/13/24) Home Medications Home Medications Active Reported Acetaminophen 500 Mg Tablet 1 Tab PO TID Plavix (Clopidogrel Bisulfate) 75 Mg Tablet 75 Mg PO DAILY Ecotrin* (Aspirin) 81 Mg Tablet. 1 Tab PO DAILY Norvasc (Amlodipine Besylate) 10 Mg Tablet 1 Tab PO DAILY Amitriptyline Hcl 25 Mg Tablet 1 Tab PO DAILY Neurontin (Gabapentin) 300 Mg Capsule 1 Cap PO 6 TIMES A DAY Past Medical History Past Medical History Cerebrovascular accident with right hemiparesis Oropharyngeal dysphagia Hypertension Atrial fibrillation with high bleeding risk Quadriplegia Rotator cuff tear arthropathy of right shoulder Nicotine dependence Disorder gastrostomy tube Colostomy status Past Surgical History Surgical History Comment Watchman procedure Three shoulder surgeries, three neck surgeries for cervical injury and paraplegia status. Bilateral TKR Past Social History Social History Comment Patient is a wheelchair-bound and bed-bound patient due to stroke and right- sided weakness Lives at home with who takes care of him Alcohol quit drinking long ago, he was not a heavy drinker at that time Smoking quit long ago, he only had two pack-year history in entire life Used to smoke pot in 2013 Denied other drug use ROS ROS Could not able to to review of the systems Exam Vitals: Vital Signs Date Time Temp Pulse Resp B/P (MAP) Pulse Ox O2 Delivery O2 Flow Rate FiO2 05/19/24 19:58 122/55 05/19/24 19:49 16 05/19/24 19:15 101 100 40 05/19/24 18:00 97.9 Mechanical Ventilator 05/19/24 15:00 15.0 General: General: Elderly male, sedated and intubated HEENT: No pallor, no icterus, PERRLA, EOM intact, mucous membranes dry Neck: Trachea in midline, no thyromegaly, no JVD Chest: Normal vesicular breath sounds, bilateral crepitations in intrascapular area interscapular area Cardiovascular: Irregular rate and rhythm,, S1 and S2 heard, no murmurs appreciated Abdomen: G-tube in place, no erythema, no drainage noticed surrounding insertion site Colostomy bag noted in left hypochondriac region, bag is empty Suprapubic catheter noticed draining concentrated urine Abdomen is soft, nontender, no organomegaly, no rigidity, no guarding, not distended Extremities: No pedal edema, no cyanosis Central Nervous System: Could not able to do the motor system examination and sensory system examination because patient is intubated and sedated. Musculoskeletal: Normal bulk and tone Spasticity noted in right upper extremity Skin: Healing ulcer present on buttock Diagnostic Data Last Recorded Lab Results: 05/19/24 1555 05/19/24 1900 Diagnostic Data: Laboratory Tests Test 05/13/24 13:41 05/19/24 11:49 Prothrombin Time 11.4 SECONDS (9.0-12.0) INR International Normalized Ratio 1.1 INR Activated Partial Thromboplast Time 32 SECONDS (22-32) Activated Clotting Time 279 SEC (101-148) H Additional Plan Sepsis 2/2 UTI Blood pressure is in 130s Patient had a PEG tube placed one and half month back by Dr. Mirza, Leukocytes elevated in 33.9 Lactic acid was elevated in 6.5-7.9 Urine analysis showed Leukocyte esterase and nitrites are positive and WBCs in urine 20-30 suggestive of UTI On vancomycin and cefazolin On pressor support of norepinephrine On soda bicarb at the rate of 100 mL/hour On ringer lactate and sodium chloride sepsis protocol Patient is on tracheostomy and mechanical ventilation AFib Status post watchman's procedure Status post CPR and ROSC with a difficult airway intubation Oropharyngeal bleeding Cerebrovascular accident with right hemiparesis On aspirin, Plavix, Dr. Pelaez is on board Oropharyngeal bleeding with more clots is noted in OR and it could be due to the patient's underlying comorbidities like a cervical fusion, short neck, cerebrovascular accident, oropharyngeal dysphagia and we think that it may not be a direct complication from the procedure. Gastrointestinal On Protonix 40 mg Status post peg tube, colostomy, suprapubic catheter: Catheter care, skin care Hypertension: Home medications of Amlodipine 10 mg Currently on pressors Status post peg tube, colostomy, suprapubic catheter: Catheter care, skin care Vladimir Carrillo IM resident Date of Service: May 19, 2024 Billing Provider: SHUBHAM LEA MD,VLADIMIR, RES May 19, 2024 20:35
[2024-05-19] MEDS: vancomycin/NS 1 GM ADD-VANTAGE 250 ML IV SCH (21:03)
[2024-05-19] MEDS: hydrocortisone sod succ/PF 100mg/2ml inj. IV ONE (21:24)
[2024-05-20] VITALS (36 sets, daily range): BP systolic 94–143; BP diastolic 36–80; PULSE 47–89; RESP 11–16; O2SAT 95–99
[2024-05-20 03:11] LABS: ABG BASE EXCESS -1.3 mmol/L (-2.0-3.0); ABG HCO3 21.1 mmol/L (21.0-28.0); ABG OXYGEN SATURATION 99.1 % (94.0-98.0); ABG PCO2 (T) 29.2 mmHg (35.0-48.0); ABG PH (T) 7.479 (7.350-7.450); ABG PO2 (T) 126.1 mmHg (83.0-108.0); FCOHb 0.8 % (0.5-1.5); FHHb 0.9 % (0.0-5.0); FMetHb 0.3 % (0.0-1.5); MODE VENT - AC; PATIENT TEMPERATURE 37.2; PEEP 5 cm H2O; RESPIRATORY RATE 16 b/min; TIDAL VOLUME 460 mL; TOTAL HEMOGLOBIN 12.4 G/dl (13.5-17.5)
[2024-05-20 03:13] LABS: BASOPHILS % (AUTO) 0.1 % (0-1); EOSINOPHILS % (AUTO) 0 % (0-6); HEMATOCRIT 35.5 % (42.0-52.0); LYMPHOCYTES # (AUTO) 0.8 X10'3 (1.1-4.8); LYMPHOCYTES % (AUTO) 3.3 % (21-51); MEAN CORPUSCULAR HEMOGLOBIN 29.8 PG (27.0-31.0); MEAN CORPUSCULAR HGB CONC 33.7 g/dL (33.0-36.5); MEAN CORPUSCULAR VOLUME 88.2 FL (78-98); MEAN PLATELET VOLUME 8.1 FL (7.4-10.4); MONOCYTES # (AUTO) 1.7 X10'3 (0-0.9); MONOCYTES % (AUTO) 6.9 % (2-12); NEUTROPHILS # (AUTO) 22.1 X10'3 (1.8-7.7); NEUTROPHILS % (AUTO) 89.7 % (42-75); PLATELET COUNT 269 X10'3 (140-440); RED BLOOD COUNT 4.03 X10'6 (4.70-6.10); RED CELL DISTRIBUTION WIDTH 13.7 % (11.5-14.5); WHITE BLOOD COUNT 24.6 X10'3 (4.5-11.0)
[2024-05-20] MEDS: hydrocortisone sod succ/PF 100mg/2ml inj. IV SCH (03:28)
[2024-05-20 03:34] LABS: ALANINE AMINOTRANSFERASE 19 U/L (12-78); ALBUMIN/GLOBULIN RATIO 0.8 (1.1-1.5); ALKALINE PHOSPHATASE 90 IU/L (46-116); ANION GAP 10 (8-16); ASPARTATE AMINO TRANSFERASE 20 U/L (10-37); BILIRUBIN,TOTAL 1.1 MG/DL (0.1-1.0); BLOOD UREA NITROGEN 17 MG/DL (7-18); BUN/CREATININE RATIO 19.1 (10.0-20.0); CALCIUM 8.2 MG/DL (8.5-10.1); CHLORIDE 105 MMOL/L (99-107); CREATININE 0.89 MG/DL (0.60-1.10); GLUCOSE 344 MG/DL (70-104); MAGNESIUM 1.6 MG/DL (1.5-2.4); POTASSIUM 3.6 MMOL/L (3.5-5.1); PRO BRAIN NATRIURETIC PEPTIDE 1463 PG/ML (0-125); SODIUM 142 MMOL/L (135-145); TOTAL CARBON DIOXIDE 27.3 MMOL/L (24-32); TOTAL PROTEIN 6.6 G/DL (6.4-8.2); eCRCL 76 ML/MIN; eGFR 84 ML/MIN
[2024-05-20 04:01] LABS: INR 1.3 INR; PROTHROMBIN TIME 12.9 SECONDS (9.0-12.0)
--- NOTE | 2024-05-20 06:33 | RADIOLOGY REPORT ---
EXAM: XR Chest, 1 View CLINICAL INDICATION: s/p Watchman TECHNIQUE: Frontal view of the chest. COMPARISON: DI CHEST,SINGLE VIEW on DOS: 05/19/24 FINDINGS: LUNGS AND PLEURAL SPACES: Mild congestive heart failure. No consolidation. No pneumothorax. HEART: Unremarkable. No cardiomegaly. MEDIASTINUM: Unremarkable. Normal mediastinal contour. BONES/JOINTS: Unremarkable. No acute fracture. TUBES, LINES AND DEVICES: Tracheostomy tube in satisfactory position. OTHER FINDINGS: . IMPRESSION: Mild congestive heart failure.
--- NOTE | 2024-05-20 06:41 | Physician Documentation ---
History of Present Illness ~ Stated Complaint: ATIAL FIBRILLATION; Medication Reconciliation Allergies: Coded Allergies: oxycodone (Verified Allergy, Unknown, HIGHTENED PAIN, 04/13/24) Scheduled Acetaminophen (Acetaminophen), 1 TAB PO TID, (Reported) Amitriptyline Hcl (Amitriptyline Hcl), 1 TAB PO DAILY, (Reported) Amlodipine Besylate (Norvasc), 1 TAB PO DAILY, (Reported) Aspirin (Ecotrin*), 1 TAB PO DAILY, (Reported) Clopidogrel Bisulfate (Plavix), 75 MG PO DAILY, (Reported) Gabapentin (Neurontin), 1 CAP PO 6 TIMES A DAY, (Reported) Discontinued Medications Acetaminophen (Tylenol), 1 TAB PO Q6H, (Reported) Discontinued Reason: Prescription changed Past Medical History Smoking Status: Former smoker Physical Exam Vital Signs: Temperature: 97.8, Source: Temporal, Heart Rate: 55, Respiratory Rate: 15, BP: 106/46, Pulse Oximetry: 97, Weight: 76.600 Oxygen Flow Rate: 15.0 Progress Results/Orders Results/Orders Medications Received in ER Medications (Trade) Dose Ordered Sig/Susy Route PRN Reason Start Time Stop Time Status Last Admin Dose Admin (Solu-Cortef 100mg vial) 50 mg Q6H IV 05/20/24 02:00 05/20/24 03:28 50 MG Vital Signs 05/19/24 05/19/24 05/19/24 05/19/24 18:45 19:00 19:00 19:15 Temp 98.4 Pulse 112 108 101 Resp 13 16 16 18 B/P (MAP) 125/57 (79) 124/55 (78) Pulse Ox 100 100 100 O2 Delivery Mechanical Ventilator FiO2 40 40 40 05/19/24 05/19/24 05/19/24 05/19/24 19:26 19:30 19:35 19:41 B/P (MAP) 125/55 125/55 127/55 126/54 05/19/24 05/19/24 05/19/24 05/19/24 19:49 19:49 19:58 20:00 Resp 16 16 B/P (MAP) 128/55 122/55 Pulse Ox 99 O2 Delivery Mechanical Ventilator FiO2 40 05/19/24 05/19/24 05/19/24 05/19/24 20:00 20:07 20:18 20:24 Pulse 106 Resp 16 B/P (MAP) 122/55 (77) 122/55 127/55 128/55 Pulse Ox 100 O2 Delivery Mechanical Ventilator FiO2 40 05/19/24 05/19/24 05/19/24 05/19/24 20:47 20:51 21:00 21:00 Pulse 104 Resp 16 16 B/P (MAP) 129/55 121/49 120/47 (71) Pulse Ox 99 O2 Delivery Mechanical Ventilator FiO2 35 40 05/19/24 05/19/24 05/19/24 05/19/24 21:02 21:03 21:14 22:00 Pulse 99 Resp 15 18 B/P (MAP) 122/47 122/49 Pulse Ox 98 FiO2 40 05/19/24 05/19/24 05/19/24 05/19/24 22:00 22:04 22:13 22:19 Pulse 102 Resp 16 B/P (MAP) 129/49 (75) 129/49 121/47 123/48 Pulse Ox 99 O2 Delivery Mechanical Ventilator FiO2 35 05/19/24 05/19/24 05/19/24 05/19/24 22:21 22:38 23:00 23:00 Pulse 91 Resp 16 16 B/P (MAP) 120/46 123/48 136/57 (83) Pulse Ox 99 O2 Delivery Mechanical Ventilator FiO2 35 35 05/19/24 05/19/24 05/19/24 05/19/24 23:04 23:08 23:20 23:25 Pulse 98 Resp 16 B/P (MAP) 135/57 135/56 136/56 Pulse Ox 99 FiO2 35 05/19/24 05/20/24 05/20/24 05/20/24 23:54 00:00 00:00 00:29 Pulse 89 Resp 16 B/P (MAP) 144/58 140/56 (84) 136/57 135/57 Pulse Ox 99 O2 Delivery Mechanical Ventilator FiO2 35 05/20/24 05/20/24 05/20/24 05/20/24 00:47 01:00 01:00 01:03 Pulse 89 Resp 16 16 B/P (MAP) 139/58 141/59 (86) 141/59 Pulse Ox 99 O2 Delivery Mechanical Ventilator FiO2 35 35 05/20/24 05/20/24 05/20/24 05/20/24 01:08 01:23 01:23 01:25 Pulse 84 Resp 15 17 B/P (MAP) 142/59 149/63 Pulse Ox 99 FiO2 35 05/20/24 05/20/24 05/20/24 05/20/24 01:35 02:00 02:14 02:23 Pulse 85 Resp 17 16 B/P (MAP) 143/60 (87) 133/58 132/59 Pulse Ox 99 O2 Delivery Mechanical Ventilator FiO2 35 05/20/24 05/20/24 05/20/24 05/20/24 02:41 02:50 03:00 03:03 Pulse 75 Resp 16 16 B/P (MAP) 140/65 142/66 Pulse Ox 99 FiO2 35 05/20/24 05/20/24 05/20/24 05/20/24 03:07 03:08 03:11 04:00 Temp 98.4 Pulse 75 68 Resp 16 16 15 B/P (MAP) 119/56 (77) 121/55 (77) Pulse Ox 99 98 O2 Delivery Mechanical Ventilator Mechanical Ventilator FiO2 35 35 30 30 05/20/24 05/20/24 05/20/24 05/20/24 05:04 05:07 05:08 05:09 Pulse 61 67 Resp 15 15 16 B/P (MAP) 121/54 107/50 (69) Pulse Ox 98 98 O2 Delivery Mechanical Ventilator FiO2 30 30 30 05/20/24 05/20/24 05/20/24 05:37 06:00 06:12 Pulse 55 Resp 15 15 B/P (MAP) 106/46 (66) Pulse Ox 97 O2 Delivery Mechanical Ventilator Mechanical Ventilator FiO2 30 30 Laboratory Tests Test 05/20/24 02:15 05/20/24 02:17 05/20/24 03:08 White Blood Count 24.6 H Red Blood Count 4.03 L Hemoglobin 12.0 L Hematocrit 35.5 L Mean Corpuscular Volume 88.2 Mean Corpuscular Hemoglobin 29.8 Mean Corpuscular Hemoglobin Concent 33.7 Red Cell Distribution Width 13.7 Platelet Count 269 Mean Platelet Volume 8.1 Neutrophils (%) (Auto) 89.7 H Lymphocytes (%) (Auto) 3.3 L Monocytes (%) (Auto) 6.9 Eosinophils (%) (Auto) 0 Basophils (%) (Auto) 0.1 Neutrophils # (Auto) 22.1 H Lymphocytes # (Auto) 0.8 L Monocytes # (Auto) 1.7 H Eosinophils # (Auto) 0.0 Basophils # (Auto) 0.0 CBC Comment Prothrombin Time 12.9 H INR International Normalized Ratio 1.3 Coagulation Comments Sodium Level 142 Potassium Level 3.6 Chloride Level 105 Carbon Dioxide Level 27.3 Anion Gap 10 Blood Urea Nitrogen 17 Creatinine 0.89 Estimated GFR/1.73 m2 84 BUN/Creatinine Ratio 19.1 Glucose Level 344 H Calcium Level 8.2 L Magnesium Level 1.6 Total Bilirubin 1.1 H Aspartate Amino Transf (AST/SGOT) 20 Alanine Aminotransferase (ALT/SGPT) 19 Alkaline Phosphatase 90 Pro-B-Type Natriuretic Peptide 1463 H Total Protein 6.6 Albumin 3.0 L Globulin 3.6 Albumin/Globulin Ratio 0.8 L Chemistry Comments Glucometer 348 H Blood Gas Specimen Type Arterial Blood Gas Puncture Site [place] O2 Saturation 99.1 H Arterial Blood pH (Temp corrected) 7.479 H Arterial Blood pCO2 (Temp correct) 29.2 L Arterial Blood pO2 (Temp corrected) 126.1 H Arterial Blood PO2/FiO2 Ratio 3.57 Arterial Blood HCO3 21.1 Arterial Blood Base Excess -1.3 Arterial Blood Oxyhemoglobin 98.0 Arterial Blood Carboxyhemoglobin 0.8 Arterial Blood Methemoglobin 0.3 Arterial Blood Deoxyhemoglobin 0.9 Christopher Test Na Blood Gas Hemoglobin 12.4 L Blood Gas Temperature 37.2 Blood Gas Set Respiration Rate 16 Blood Gas Modality Vent - ac FiO2 35.0 Blood Gas Tidal Volume 460 Blood Gas PEEP 5 Microbiology Date/Time Source Procedure Growth Status 05/19/24 09:38 Nasal Swab MRSA Screen - Preliminary Culture received. Resulted 05/13/24 14:31 Urine Other Urine Culture - Final Enterococcus Faecalis Complete Medical Decision Making Findings 73-year-old male who was in recovery after apparently having a transesophageal echocardiogram the patient had blood in his oral airway and the critical care attending as well as the anesthesiologist were unable to orally intubate the pat ient now was called to the bedside. The patient desaturated after several attempts at fiberoptic intubation by the critical care tendon, the decision was made to perform a surgical airway. The anterior neck was prepped with a chlorhexidine. A 2 cm incision was made vertically over the crico thyroid portion of the neck. The patient's airway was difficult to manipulate since it was fairly deep in the anterior neck and had some significant subcutaneous tissue to blunt dissect through. An attempt at a melker Seldinger airway was unsuccessful, with the assistance of Dr. Dennis immobilize the airway using a cricoid hook the airway was been transected at the level of the cricothyroid membrane with a 1.5 cm incision a bougie was placed into the airway and then a trach as the introducer from the seldinger kit was placed successfully with good capnography and bilateral breath sounds. There was minimal blood loss. The patient did have extended periods of apnea and bradycardia that was managed with a short period of CPR and vasopressors. Departure Disposition: 30 STILL A PATIENT Impression: Primary Impression: Requires airway assessment and maintenance during postoperative period Referrals: NO PRIMARY CARE PROVIDER (PCP) Signature Scribe Signature: no scribe Attestation: The note accurately reflects work and decisions made by me.Tani Prajapati MD 05/07 07/01 06:43 TANI PRAJAPATI MD May 20, 2024 06:41
--- NOTE | 2024-05-20 06:50 | ELECTROCARDIOGRAPH REPORT ---
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 Vicky Pelaez Measurements Intervals [place] Rate: 67 P: 0 ND: 0 QRS: 16 QRSD: 90 T: 31 QT: 413 QTc: 436 Interpretive Statements Atrial fibrillation Borderline low voltage, extremity leads Minimal ST elevation, anterior leads Electronically Signed On 05-20-2024 7:00:[address] Vicky Pelaez Please click the below link to view image of tracing.
[2024-05-20] MEDS: amLODIPine 5mg tablet PO SCH (08:00)
[2024-05-20] MEDS: potassium Cl 20mEq/100mL bag 100 ML IV PRN (08:23)
[2024-05-20] MEDS: magnesium sulf-water 4G/100mL 100 ML IV PRN (08:23)
[2024-05-20] MEDS ORDERED: DEXTROSE 15 GM of carb/4 tabs (each vial/BOTTLE has 4 tablets) PO PRN ×2 (08:55)
[2024-05-20] MEDS ORDERED: glucagon, human recombinant 1mg kit SUBCUT PRN (08:55)
[2024-05-20] MEDS ORDERED: dextrose 50%-water 50ml dispensing syringe IV PRN ×2 (08:55)
[2024-05-20] MEDS: clopidogrel 75mg tablet PO SCH (09:00)
[2024-05-20] MEDS: INSULIN LISPRO 100 UNIT/ML INSULN.PEN MULTI-DOSE SQ SCH (09:00)
[2024-05-20] MEDS: aspirin 81mg, enteric-coated 1 TAB TABLET.DR PO SCH (09:00)
[2024-05-20 09:02] LABS: HEMOGLOBIN A1C 4.9 % (4.5-6.2)
[2024-05-20] MEDS: amitriptyline 25mg tablet PO SCH (09:42)
[2024-05-20 10:16] LABS: PHOSPHORUS 1.9 MG/DL (2.3-4.5)
[2024-05-20] MEDS: vancomycin/NS 1 GM ADD-VANTAGE 250 ML IV SCH (11:00)
[2024-05-20] MEDS ORDERED: INSULIN LISPRO 100 UNIT/ML INSULN.PEN MULTI-DOSE SQ SCH (12:00)
[2024-05-20] MEDS ORDERED: sodium phosphate inj. 30 MMOL in dextrose 5%-water 250 ML IV PRN (13:10)
[2024-05-20] MEDS: insulin regular, human U-100 10ml vial - multi-dose SQ SCH (14:00)
[2024-05-20] MEDS: sodium phosphate inj. 15 MMOL in dextrose 5%-water 250 ML IV PRN (15:07)
[2024-05-20] MEDS: piperacillin/tazo 3.375gm/50ml 50 ML IV SCH (15:48)
--- NOTE | 2024-05-20 16:22 | PROGRESS NOTE- Residence ---
Progress Note - Resident Providers to CC Resident Creating Document: VLADIMIR CARRILLO RES ~ Antibiotic Timeout Antibiotic Ordered?: Yes Subjective Seen and examined the patient at bedside. He has been mechanically ventilated through tracheostomy and oxygen requirement is improving. He is off the pressors now. Objective Vital Signs Date Time Temp Pulse Resp B/P (MAP) Pulse Ox O2 Delivery O2 Flow Rate FiO2 05/20/24 15:29 77 13 96 25 05/20/24 15:00 126/57 (80) 05/20/24 13:30 Mechanical Ventilator 05/20/24 11:55 98.1 05/19/24 15:00 15.0 Result Diagram: 05/20/245 05/20/24 0215 General: Elderly male, sedated and mechanically ventilated with tracheostomy tube with 25% FiO2 and five peep HEENT: No pallor, no icterus, PERRLA, EOM intact, mucous membranes dry Neck: Trachea in midline, no thyromegaly, no JVD Chest: Normal vesicular breath sounds, bilateral crepitations in intrascapular area interscapular area Cardiovascular: Irregular rate and rhythm,, S1 and S2 heard, no murmurs appreciated Abdomen: G-tube in place, no erythema, no drainage noticed surrounding insertion site Colostomy bag noted in left hypochondriac region, bag is empty Suprapubic catheter noticed draining concentrated urine Abdomen is soft, nontender, no organomegaly, no rigidity, no guarding, not distended Extremities: No pedal edema, no cyanosis Central Nervous System: Motor: 2/5 in right upper extremity, 0/5 in right lower extremity, 5/5 in left upper and lower extremities Left upper extremity spasticity noted Sensory: Decreased sensory in right upper and lower extremity Coagulation Studies Laboratory Tests Test 05/13/24 13:41 05/19/24 11:49 05/20/24 02:15 Activated Partial Thromboplast Time 32 SECONDS (22-32) Activated Clotting Time 279 SEC (101-148) H Prothrombin Time 12.9 SECONDS (9.0-12.0) H INR International Normalized Ratio 1.3 INR Coagulation Comments Advance Care Planning Advanced Care planning: Add on additional 30 min Assessment Assessment 73-year-old male with past medical history of cerebrovascular accident with oropharyngeal dysphagia with cervical fusion with quadriplegia, he had a Watchman procedure for AFib in [employer] with history of cervical fusion short neck difficult intubation, had a difficulty of placing SOWMYA probe for Left atria appendage occlusion. Patient is awake and able to maintain the airway in the recovery room. Because of use of heparin for the procedure,patient continue to bleed and complain of clots. To reduce pharyngeal bleeding ,Patient recieved protamine. Unfortunately the more times to clear bleeding and clots, more mucosal trauma of pharynx .bleding and clot formation. Patient is unable clear the airway himself and end up airway obstruction ,hypoxia. A code is called. Slasher Tender Helper did multiple glide scope video laryngoscopy attempts to assess the airway, intubate. The entire mc pharynx is bloody and huge clots obstructing the glottis and could not clear the airway or identify anatomy clearly to intubate. We were consulted for difficult intubation and airway maintenance, we did fiber optic bronchoscope to secure air way unsuccessfully. An emergency tracheotomy is attempted by Radha ARRIAGA, Later Dr morin successfully put a tracheotomy tube and CPR was successfully. with 100% saturation and Blood pressure of 140/90. Patient is transferred to ICU Plan Plan Sepsis 2/2 UTI and Acute hypoxemic respiratory failure status post tracheostomy and mechanical ventilation Covering Gram-positive and Gram-negative bacteria Blood pressure is in 90s with a MAP of 62 Patient had a PEG tube placed one and half month back by Dr. Mirza, Leukocytes decreased to 24 but procalcitonin is elevated 12.53 Urine analysis showed Leukocyte esterase and nitrites are positive and WBCs in urine 20-30 suggestive of UTI On vancomycin and Zosyn Off the pressor support of norepinephrine On ringer lactate and sodium chloride. Echocardiogram on today is showing ejection fraction of 60% AFib Status post watchman's procedure Status post CPR and ROSC with a difficult airway maintenance and intubation Cerebrovascular accident with right hemiparesis with cervical fusion Acute hypoxemic respiratory failure status post tracheostomy and mechanical ventilation On aspirin, Plavix, Dr. Pelaez is on board Mechanical ventilation and on tracheostomy with Peep of five and FiO2 25 with PaO2 be FiO2 ratio of 344 Oropharyngeal bleeding with more clots is noted in OR and it could be due to the patient's underlying comorbidities like a cervical fusion, short neck, cerebrovascular accident, oropharyngeal dysphagia & we think that it may not be a direct complication from the procedure. On hydrocortisone 50 mg q.6 H On midazolam and fentanyl sedation Hyperglycemia Blood sugars are in 300 Medium dose Humulin insulin q.6 H protocol Gastrointestinal On Protonix 40 mg On peg tube, colostomy bag Hypertension: Home medications of Amlodipine 10 mg Currently blood pressures are on soft side Hypophosphatemia On replacement protocol Status post peg tube, colostomy, suprapubic catheter: Catheter care, skin care Continuous TF via PEG per MD using Pivot 1.5 at 55ml/hr; to provide 1320ml volume/day, 1980 kcals, 990ml water, and 124g protein. Additional water flush 150ml Q4H; monitor serum Na Bowel care, bladder care, eye care Vladimir Carrillo resident Date of Service: May 20, 2024 Billing Provider: SHUBHAM LEA MD,VLADIMIR, RES May 20, 2024 16:22
--- NOTE | 2024-05-20 16:45 | PROGRESS NOTE ---
Progress Note Cardiology Providers to CC ~ Subjective Subjective Patient seen and examined in the ICU. Respiratory status is stable. He was awake, alert. Able to mouth yes or no questions. Atrial fibrillation with controlled ventricular response on the monitor. Blood pressure stable not on vasopressors. Objective Result Diagram: 05/20/2421405/20/24214 Objective General: Awake, alert. Neck: Tracheostomy in place. Dried blood around the surgical incision. Respiratory: Lungs are fine crackles. Chest: Normal shape and size. No accessory muscle use. Cardiovascular: Irregularly irregular. S1-S2. No murmur, gallop, rub. Extremities: No lower extremity edema, cyanosis or clubbing. Skin: Normal color. Warm and dry. Coagulation Studies Laboratory Tests Test 05/13/24 13:41 05/19/24 11:49 05/20/24 02:15 Activated Partial Thromboplast Time 32 SECONDS (22-32) Activated Clotting Time 279 SEC (101-148) H Prothrombin Time 12.9 SECONDS (9.0-12.0) H INR International Normalized Ratio 1.3 INR Coagulation Comments Problem\Assessment\Plan Additional Plan This is a 73-year-old male who presented for planned left atrial appendage occlusion with Watchman. Postoperatively developed leading to the oropharynx with subsequent respiratory distress. The following is his problem list: Atrial fibrillation Status post Watchman. Postoperative echo reveals no pericardial effusion. -continue aspirin 81 mg daily indefinitely when stable -Plavix 75 mg daily for six months when stable -follow-up imaging at 45 days Respiratory distress secondary to bleeding to the oropharynx Subsequently PEA arrest with ROSC after airway secured Underwent emergent surgical airway Briefly required vasopressors. Now off any pressors or sedation and doing well. History of CVA Patient had intracranial hemorrhage in the past Right-sided deficits Case discussed with Dr. Rob Pelaez. He had the opportunity to see the patient this morning. Improvement in oropharynx bleeding. Further airway management per critical care team. From a cardiac standpoint his Watchman is functioning normally. He was to be started on aspirin 81 mg daily and Plavix 75 mg daily when able to tolerate. He will follow up as scheduled. Please contact Dr. Rob Pelaez for any further cardiology needs over the weekend. Supervising Physician: LALO Jimenez NP May 20, 2024 16:45
--- NOTE | 2024-05-20 17:26 | CONSULTATION REPORT - RESIDENT ---
Consult Providers to CC Resident Creating Document: SKYLAR CHAVIS RES History of Present Illness Reason for Admit\Complaint: Airway obstruction History of Present Illness 73-year-old male with history of atrial fibrillation, history of hemorrhagic stroke , hypertension, cervical fusion initially underwent Watchman procedure on 05/19. Postprocedure in the recovery room patient coded. He had airway obstruction secondary to bleed. To his history of cervical fusion he has difficulty in placing SOWMYA probe for left atrial appendage occlusion, and as he received bleeding he had some bleeding in the mount associated with clot. He received protamine to control the bleed. Code blue is called, warehouse operations manager attempt intubation however he had bled it is difficult to intubate. Plc Controls Engineer was called and they did fiber optic bronchoscopy which was unsuccessful. ER MD and surgeon successfully put a tracheotomy tube, and airway was established. He received few cycles of CPR with ROSC. Patient is transferred to ICU on 05/19 Allergies: Coded Allergies: oxycodone (Verified Allergy, Unknown, HIGHTENED PAIN, 04/13/24) Home Medications Home Medications Active Reported Acetaminophen 500 Mg Tablet 1 Tab PO TID Plavix (Clopidogrel Bisulfate) 75 Mg Tablet 75 Mg PO DAILY Ecotrin* (Aspirin) 81 Mg Tablet.dr 1 Tab PO DAILY Norvasc (Amlodipine Besylate) 10 Mg Tablet 1 Tab PO DAILY Amitriptyline Hcl 25 Mg Tablet 1 Tab PO DAILY Neurontin (Gabapentin) 300 Mg Capsule 1 Cap PO 6 TIMES A DAY Past Medical History Past Medical History CVA with right-sided weakness Atrial fibrillation Hypertension History of para paresis secondary to neck injury recovered Status post colostomy Status post G-tube placement Past Surgical History Surgical History Comment s/p Watchmans on 05/19 Cervical fusion Shoulder surgeries bilateral total knee replacement s/p colostomy s/p G tube Past Social History Social History Comment Patient is a wheelchair-bound and bed-bound patient due to stroke and right- sided weakness Lives at home with who takes care of him Alcohol quit drinking long ago, he was not a heavy drinker at that time Smoking quit long ago, he only had two pack-year history in entire life Used to smoke pot in 2013 Denied other drug use Exam Vitals: Vital Signs Date Time Temp Pulse Resp B/P (MAP) Pulse Ox O2 Delivery O2 Flow Rate FiO2 05/20/24 15:29 77 13 96 25 05/20/24 15:00 126/57 (80) 05/20/24 13:30 Mechanical Ventilator 05/20/24 11:55 98.1 05/19/24 15:00 15.0 General: General: Patient is sedated, connected to mechanical ventilator, not in apparent distress Head: Normocephalic with an atraumatic Eyes: Pupils- 3mm, reacting to light, conjunctiva- anicteric Nose and throat: No polyps, septum- normal, no mucosal ulcers Neck: Supple, no lymphadenopathy, no carotid bruit, ileostomy tube in place Respiratory: No use of accessory muscles of respiration, Bilateral normal vesiscular breath sounds heard. No wheeze, rhochi or creps Cardiac: S1-S2 heard, rythm regular, no gallop/murmur Abdomen: G-tube in place, no erythema, no drainage noticed surrounding insertion site Colostomy bag noted in left hypochondriac region, bag is empty Suprapubic catheter noticed draining concentrated urine Extremities: no clubbing, no pedal edema, no deformities, peripheral pulses- 2+ Skin: warm and dry, no rash, no purpura Neuro: Not able to assess as patient is sedated Diagnostic Data Last Recorded Lab Results: 05/20/24 0215 05/20/24 0215 Diagnostic Data: Laboratory Tests Test 05/13/24 13:41 05/19/24 11:49 05/20/24 02:15 Activated Partial Thromboplast Time 32 SECONDS (22-32) Activated Clotting Time 279 SEC (101-148) H Prothrombin Time 12.9 SECONDS (9.0-12.0) H INR International Normalized Ratio 1.3 INR Coagulation Comments Additional Plan 73-year-old male with history of atrial fibrillation, history of hemorrhagic stroke , hypertension, cervical fusion initially underwent Watchman procedure on 05/19. Later he developed airway obstruction secondary to oral bleed and went into code blue. He had ROSC, underwent tracheostomy for emergency airway, and transferred to ICU. s/p PEA arrest Status post CPR Acute hypoxemic respiratory failure -on mechanical ventilation with peep of five, FiO2 of 25 -not on sedatives in the afternoon -management as per cloth colorer AFib with RVR s/p Watchman -continue aspirin, Plavix Sepsis WBC-25, with procal 12.5 -secondary to UTI -continue Zosyn -off the epinephrine from today -continue LR Status post PEG Status post colostomy Status post SPC -wound care management History of intracranial bleed with right side hemiparesis Code Status: Full code Line/tube: Right IJ DVT prophylaxis: SCD Nutrition: Tube feeds PT: Yes Prognosis: Guarded Disposition: Continue care in ICU, Skylar Chavis MD PGY-2 resident Date of Service: May 20, 2024 Billing Provider: DILSHAD GOMEZ MD Common Visit Codes: [id number] INP/OBS CARE (HIGH) SKYLAR CHAVIS, RES May 20, 2024 17:26 DILSHAD GOMEZ MD Jun 02, 2024 15:07
[2024-05-20] MEDS: ARGININE/GLUTAMINE/CALCIUM BMB (JUVEN 19.3GM PKT) 1 EACH POWD.PACK PO SCH (20:14)
[2024-05-21] VITALS (34 sets, daily range): BP systolic 101–185; BP diastolic 45–70; PULSE 59–93; RESP 8–17; O2SAT 95–99
[2024-05-21 02:48] LABS: BASOPHILS # (AUTO) 0.1 X10'3 (0-0.2); BASOPHILS % (AUTO) 0.5 % (0-1); EOSINOPHILS % (AUTO) 0 % (0-6); HEMATOCRIT 28.4 % (42.0-52.0); HEMOGLOBIN 9.6 g/dl (14.0-17.9); LYMPHOCYTES # (AUTO) 1.4 X10'3 (1.1-4.8); LYMPHOCYTES % (AUTO) 6.4 % (21-51); MEAN CORPUSCULAR HEMOGLOBIN 30.1 PG (27.0-31.0); MEAN CORPUSCULAR HGB CONC 33.9 g/dL (33.0-36.5); MEAN CORPUSCULAR VOLUME 88.7 FL (78-98); MEAN PLATELET VOLUME 7.8 FL (7.4-10.4); MONOCYTES # (AUTO) 1.2 X10'3 (0-0.9); MONOCYTES % (AUTO) 5.7 % (2-12); NEUTROPHILS # (AUTO) 18.6 X10'3 (1.8-7.7); NEUTROPHILS % (AUTO) 87.4 % (42-75); PLATELET COUNT 187 X10'3 (140-440); RED CELL DISTRIBUTION WIDTH 14.2 % (11.5-14.5); WHITE BLOOD COUNT 21.3 X10'3 (4.5-11.0)
[2024-05-21 03:02] LABS: ALANINE AMINOTRANSFERASE 12 U/L (12-78); ALBUMIN 2.6 G/DL (3.4-5.0); ALBUMIN/GLOBULIN RATIO 0.8 (1.1-1.5); ALKALINE PHOSPHATASE 68 IU/L (46-116); ANION GAP 4 (8-16); ASPARTATE AMINO TRANSFERASE 17 U/L (10-37); BILIRUBIN,TOTAL 0.7 MG/DL (0.1-1.0); BLOOD UREA NITROGEN 27 MG/DL (7-18); BUN/CREATININE RATIO 39.7 (10.0-20.0); CALCIUM 7.9 MG/DL (8.5-10.1); CHLORIDE 109 MMOL/L (99-107); CREATININE 0.68 MG/DL (0.60-1.10); GLUCOSE 184 MG/DL (70-104); MAGNESIUM 2.3 MG/DL (1.5-2.4); PHOSPHORUS 2.7 MG/DL (2.3-4.5); POTASSIUM 3.7 MMOL/L (3.5-5.1); SODIUM 142 MMOL/L (135-145); TOTAL CARBON DIOXIDE 28.8 MMOL/L (24-32); TOTAL PROTEIN 5.9 G/DL (6.4-8.2); eCRCL 100 ML/MIN; eGFR > 90 ML/MIN
[2024-05-21] MEDS ORDERED: amLODIPine 5mg tablet PEG SCH (10:00)
[2024-05-21] MEDS ORDERED: aspirin 81mg tab.chew PEG SCH (10:01)
[2024-05-21] MEDS ORDERED: DEXTROSE 15 GM of carb/4 tabs (each vial/BOTTLE has 4 tablets) PEG PRN ×2 (10:01)
[2024-05-21] MEDS ORDERED: diphenhydrAMINE 25 MG/10 ML UD oral solution PEG PRN (10:02)
[2024-05-21] MEDS ORDERED: docusate sodium 100mg/10ml UD cup PEG PRN (10:02)
[2024-05-21] MEDS ORDERED: lansoprazole 15mg solutab PEG PRN (10:04)
[2024-05-21] MEDS: GABAPENTIN 300 MG/6 ML oral SOLUTION cup PEG SCH (13:24)
--- NOTE | 2024-05-21 14:37 | PROGRESS NOTE ---
Subjective Subjective Seen and examined the patient at bedside. He has been mechanically ventilated through tracheostomy and oxygen requirement is improving. He is off the pressors now. Reason for visit: Pulmonary Critical Care Reviewed: Care Plan, H&P, Labs, Medications, Radiology Review of Systems Changes from previous H/P or p: No Changes Daily Progress Note Exam Vitals Vital Signs Date Time Temp Pulse Resp B/P (MAP) Pulse Ox O2 Delivery O2 Flow Rate FiO2 05/21/24 13:00 97.3 80 12 168/63 (98) 98 Trach Collar 05/21/24 11:15 40 05/19/24 15:00 15.0 Result Diagram: 05/21/24 0230 05/21/24 0230 Exam General: Elderly male, sedated and mechanically ventilated with tracheostomy tube with 25% FiO2 and five peep HEENT: No pallor, no icterus, PERRLA, EOM intact, mucous membranes dry Neck: Trachea in midline, no thyromegaly, no JVD Chest: Normal vesicular breath sounds, bilateral crepitations in intrascapular area interscapular area Cardiovascular: Irregular rate and rhythm,, S1 and S2 heard, no murmurs appreciated Abdomen: G-tube in place, no erythema, no drainage noticed surrounding insertion site Colostomy bag noted in left hypochondriac region, bag is empty Suprapubic catheter noticed draining concentrated urine Abdomen is soft, nontender, no organomegaly, no rigidity, no guarding, not distended Extremities: No pedal edema, no cyanosis Central Nervous System: Motor: 2/5 in right upper extremity, 0/5 in right lower extremity, 5/5 in left upper and lower extremities Left upper extremity spasticity noted Sensory: Decreased sensory in right upper and lower extremity Results Coagulation Studies Laboratory Tests Test 05/13/24 13:41 05/19/24 11:49 05/20/24 02:15 Activated Partial Thromboplast Time 32 SECONDS (22-32) Activated Clotting Time 279 SEC (101-148) H Prothrombin Time 12.9 SECONDS (9.0-12.0) H INR International Normalized Ratio 1.3 INR Coagulation Comments VTE VTE Risk Score VTE Risk Score Reference Ranges: Score 0-1 = Low Risk (Aggressive mobilization; early ambulation; no VTE prophylaxis required) Score 2: Moderate Risk (Intermittent/Pneumatic Compression Device OR Lovenox/Heparin/Coumadin) Score 3-4: High Risk (Intermittent/Pneumatic Compression Device AND Lovenox/Heparin/Coumadin) Score > or = 5: Highest Risk (Intermittent/Pneumatic Compression Device AND Lovenox/Heparin/Coumadin) Assessment/Plan Assessment 73-year-old male with past medical history of cerebrovascular accident with oropharyngeal dysphagia with cervical fusion with quadriplegia, he had 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 Patient is awake and able to maintain the airway in the recovery room. Because of use of heparin for the procedure,patient continue to bleed and complain of clots. To reduce pharyngeal bleeding ,Patient recieved protamine. Unfortunately the more times to clear bleeding and clots, more mucosal trauma of pharynx .bleding and clot formation. Patient is unable clear the airway himself and end up airway obstruction ,hypoxia. A code is called. House Piping Inspector did multiple glide scope video laryngoscopy attempts to assess the airway, intubate. The entire mc pharynx is bloody and huge clots obstructing the glottis and could not clear the airway or identify anatomy clearly to intubate. We were consulted for difficult intubation and airway maintenance, we did fiber optic bronchoscope to secure air way unsuccessfully. An emergency tracheotomy is attempted by Radha ARRIAGA, Later Dr morin successfully put a tracheotomy tube and CPR was successfully. with 100% saturation and Blood pressure of 140/90. Patient is transferred to ICU Plan Sepsis 2/2 UTI and Acute hypoxemic respiratory failure status post emergent tracheostomy in PACU and now on mechanical ventilation Covering Gram-positive and Gram-negative bacteria Patient had a PEG tube placed one and half month back by Dr. Mirza, Leukocytes decreased to 21.3 but procalcitonin is elevated 12.53 Urine analysis showed Leukocyte esterase and nitrites are positive and WBCs in urine 20-30 suggestive of UTI On vancomycin and Zosyn Off the pressor support of norepinephrine On ringer lactate and sodium chloride. Echocardiogram on today is showing ejection fraction of 60% AFib Status post watchman's procedure Status post CPR and ROSC with a difficult airway that led to emegent tracheostomy in PACU by Dr Morin. Cerebrovascular accident with right hemiparesis with cervical fusion Acute hypoxemic respiratory failure status post tracheostomy and mechanical ventilation On aspirin, Plavix, Dr. Pelaez is on board Mechanical ventilation and on tracheostomy with Peep of five and FiO2 25 with PaO2 be FiO2 ratio of 344 On hydrocortisone 50 mg q.6 H On midazolam and fentanyl sedation Hyperglycemia Blood sugars control improved Medium dose Humulin insulin q.6 H protocol Gastrointestinal On Protonix 40 mg On peg tube, colostomy bag Hypertension: Home medications of Amlodipine 10 mg Currently blood pressures are on soft side Hypophosphatemia On replacement protocol Status post peg tube, colostomy, suprapubic catheter: Catheter care, skin care Continuous TF via PEG per MD using Pivot 1.5 at 55ml/hr; to provide 1320ml volume/day, 1980 kcals, 990ml water, and 124g protein. Additional water flush 150ml Q4H; monitor serum Na Bowel care, bladder care, eye care Prognosis:Guarded CC Time 35 minutes Expected Outcome/Goals Expected Outcomes/Goals: maintain stable wt, TF tolerance, bowel regularity, wound healing SHUBHAM LEA MD May 21, 2024 14:37
[2024-05-21] MEDS: hydrALAZINE 20mg/ml inj. IV PRN (17:00)
[2024-05-21] MEDS ORDERED: labetalol 20mg/4ml (5mg/ml) syringe IV PRN (17:30)
[2024-05-21] MEDS: amLODIPine 5mg tablet PEG SCH (17:41)
[2024-05-21] MEDS: metoprolol tartrate 50mg tablet PEG SCH (17:42)
[2024-05-21] MEDS: ARGININE/GLUTAMINE/CALCIUM BMB (JUVEN 19.3GM PKT) 1 EACH POWD.PACK PEG SCH (20:00)
[2024-05-21] MEDS ORDERED: hydrALAZINE 20mg/ml inj. IV PRN (20:00)
--- NOTE | 2024-05-21 20:04 | PROGRESS NOTE- Residence ---
Progress Note - Resident Providers to CC Resident Creating Document: RINA DUNBAR ODALIS, RES ~ Antibiotic Timeout Antibiotic Ordered?: Yes Subjective The patient was seen and examined at bedside today. He had tracheostomy done and is currently on 30% FiO2 and 5 PEEP. Off pressors. Objective Vital Signs Date Time Temp Pulse Resp B/P (MAP) Pulse Ox O2 Delivery O2 Flow Rate FiO2 05/21/24 19:07 71 14 97 Cool/Heated Aerosol Mist+ 30 05/21/24 18:00 97.5 161/59 (93) 05/19/24 15:00 15.0 Result Diagram: 05/21/24 0230 05/21/24 0230 General: Patient is sedated, connected to mechanical ventilator, not in apparent distress Head: Normocephalic with an atraumatic Eyes: Pupils- 3mm, reacting to light, conjunctiva- anicteric Nose and throat: No polyps, septum- normal, no mucosal ulcers Neck: Supple, no lymphadenopathy, no carotid bruit, ileostomy tube in place Respiratory: No use of accessory muscles of respiration, Bilateral normal vesiscular breath sounds heard. No wheeze, rhochi or creps Cardiac: S1-S2 heard, rythm regular, no gallop/murmur Abdomen: G-tube in place, no erythema, no drainage noticed surrounding insertion site Colostomy bag noted in left hypochondriac region, bag is empty Suprapubic catheter noticed draining concentrated urine Extremities: no clubbing, no pedal edema, no deformities, peripheral pulses- 2+ Skin: warm and dry, no rash, no purpura Neuro: Not able to assess as patient is sedated Coagulation Studies Laboratory Tests Test 05/13/24 13:41 05/19/24 11:49 05/20/24 02:15 Activated Partial Thromboplast Time 32 SECONDS (22-32) Activated Clotting Time 279 SEC (101-148) H Prothrombin Time 12.9 SECONDS (9.0-12.0) H INR International Normalized Ratio 1.3 INR Coagulation Comments Assessment Assessment A 73-year-old male with history of atrial fibrillation, history of hemorrhagic stroke , hypertension, cervical fusion initially underwent Watchman procedure on 05/19. Later he developed airway obstruction secondary to oral bleed and went into code blue. He had ROSC, underwent tracheostomy for emergency airway, and transferred to ICU. Plan Plan s/p PEA arrest Status post CPR and tracheostomy Acute hypoxemic respiratory failure -on mechanical ventilation with peep of five, FiO2 of 30% -not on pressors -management as per emergency dispatch operator AFib with RVR s/p Watchman -continue aspirin, Plavix Sepsis WBC-25, with procal 12.5 -secondary to UTI -continue Zosyn -off the epinephrine from yesterday -continue LR Status post PEG Status post colostomy Status post SPC -wound care management History of intracranial bleed with right side hemiparesis Code Status: Full code Line/tube: Right IJ DVT prophylaxis: SCD Nutrition: Tube feeds PT: Yes Prognosis: Guarded Disposition: The patient is currently under the care of emergency dispatch operator. We will assume care of the patient after he is downgraded to the floors. Rina Dunbar MD Internal Medicine Resident, PGY-1 Date of Service: May 21, 2024 Billing Provider: DILSHAD GOMEZ MD Common Visit Codes: [id number] INP/OBS CARE(HIGH) RINA DUNBAR, RES May 21, 2024 20:04 DILSHAD GOMEZ MD Jun 02, 2024 15:08
[2024-05-21] MEDS: hydrALAZINE 20mg/ml inj. IV SCH (20:20)
[2024-05-21] MEDS: VANCOMYCIN LEVEL IV ONE (23:21)
[2024-05-21] MEDS: HYDROcodone/acetaminophen 5mg/325mg tablet PO PRN (23:56)
[2024-05-22] VITALS (25 sets, daily range): BP systolic 112–165; BP diastolic 51–73; PULSE 66–94; RESP 13–20; TEMP 97.5–98; O2SAT 92–100
[2024-05-22 03:00] LABS: BASOPHILS # (AUTO) 0.1 X10'3 (0-0.2); BASOPHILS % (AUTO) 0.4 % (0-1); EOSINOPHILS % (AUTO) 0 % (0-6); HEMATOCRIT 30.1 % (42.0-52.0); HEMOGLOBIN 10.1 g/dl (14.0-17.9); LYMPHOCYTES # (AUTO) 1.3 X10'3 (1.1-4.8); LYMPHOCYTES % (AUTO) 6.1 % (21-51); MEAN CORPUSCULAR HEMOGLOBIN 30.2 PG (27.0-31.0); MEAN CORPUSCULAR HGB CONC 33.5 g/dL (33.0-36.5); MEAN CORPUSCULAR VOLUME 90.4 FL (78-98); MONOCYTES # (AUTO) 1.4 X10'3 (0-0.9); MONOCYTES % (AUTO) 6.2 % (2-12); NEUTROPHILS # (AUTO) 19.1 X10'3 (1.8-7.7); NEUTROPHILS % (AUTO) 87.3 % (42-75); PLATELET COUNT 205 X10'3 (140-440); RED BLOOD COUNT 3.33 X10'6 (4.70-6.10); RED CELL DISTRIBUTION WIDTH 14.4 % (11.5-14.5); WHITE BLOOD COUNT 21.9 X10'3 (4.5-11.0)
[2024-05-22 03:30] LABS: ALANINE AMINOTRANSFERASE 36 U/L (12-78); ALBUMIN 2.7 G/DL (3.4-5.0); ALBUMIN/GLOBULIN RATIO 0.8 (1.1-1.5); ALKALINE PHOSPHATASE 74 IU/L (46-116); ANION GAP 8 (8-16); ASPARTATE AMINO TRANSFERASE 45 U/L (10-37); BILIRUBIN,TOTAL 0.9 MG/DL (0.1-1.0); BLOOD UREA NITROGEN 27 MG/DL (7-18); BUN/CREATININE RATIO 44.3 (10.0-20.0); CALCIUM 8.4 MG/DL (8.5-10.1); CHLORIDE 112 MMOL/L (99-107); CREATININE 0.61 MG/DL (0.60-1.10); GLUCOSE 172 MG/DL (70-104); MAGNESIUM 2.2 MG/DL (1.5-2.4); PHOSPHORUS 1.9 MG/DL (2.3-4.5); POTASSIUM 3.5 MMOL/L (3.5-5.1); SODIUM 148 MMOL/L (135-145); TOTAL CARBON DIOXIDE 28.4 MMOL/L (24-32); TOTAL PROTEIN 6.2 G/DL (6.4-8.2); eCRCL 111 ML/MIN; eGFR > 90 ML/MIN
[2024-05-22] MEDS: POTASSIUM CHLORIDE 20 MEQ/15 ML oral solution PEG PRN (04:06)
[2024-05-22] MEDS: magnesium sulf-water 2g/50mL 50 ML IV PRN (06:01)
[2024-05-22] MEDS: clopidogrel 75mg tablet PEG SCH (07:52)
[2024-05-22] MEDS: amitriptyline 25mg tablet PEG SCH (07:53)
[2024-05-22] MEDS ORDERED: aspirin 81mg tab.chew PEG SCH (08:12)
[2024-05-22] MEDS: aspirin 81mg tab.chew PEG SCH (08:25)
[2024-05-22] MEDS: VANCOMYCIN LEVEL IV ONE (09:40)
[2024-05-22] MEDS ORDERED: dexamethasone 4mg/ml inj IM SCH (11:00)
[2024-05-22] MEDS: dexamethasone 4mg/ml inj IV SCH (11:23)
--- NOTE | 2024-05-22 13:33 | PROGRESS NOTE ---
Subjective Subjective The patient was seen and examined at bedside today. He had tracheostomy done and is currently on 35% humidified trach collar. Was unable to tolerate red capping of his tracheostomy today i.e. became dyspneic. Most likely has swelling of his upper airway given the manipulation of his airway in the PACU. Reason for visit: Pulmonary Critical Care Reviewed: Care Plan, H&P, Labs, Medications, Radiology Daily Progress Note Exam Vitals Vital Signs Date Time Temp Pulse Resp B/P (MAP) Pulse Ox O2 Delivery O2 Flow Rate FiO2 05/22/24 13:00 97.5 75 16 129/51 (77) 95 Trach Collar 05/22/24 12:17 35 05/19/24 15:00 15.0 Result Diagram: 05/22/24 0215 05/22/24 021 Exam General: Elderly male, awake alert and in no apparent distress. Also communicative. HEENT: No pallor, no icterus, PERRLA, EOM intact, mucous membranes dry Neck: Trachea in midline, no thyromegaly, no JVD Chest: Normal vesicular breath sounds, bilateral crepitations in intrascapular area interscapular area Cardiovascular: Irregular rate and rhythm,, S1 and S2 heard, no murmurs appreciated Abdomen: G-tube in place, no erythema, no drainage noticed surrounding insertion site Colostomy bag noted in left hypochondriac region, bag is empty Suprapubic catheter noticed draining concentrated urine Abdomen is soft, nontender, no organomegaly, no rigidity, no guarding, not distended Extremities: No pedal edema, no cyanosis Central Nervous System: Motor: 2/5 in right upper extremity, 0/5 in right lower extremity, 5/5 in left upper and lower extremities Left upper extremity spasticity noted Sensory: Decreased sensory in right upper and lower extremity Results Coagulation Studies Laboratory Tests Test 05/13/24 13:41 05/19/24 11:49 05/20/24 02:15 Activated Partial Thromboplast Time 32 SECONDS (22-32) Activated Clotting Time 279 SEC (101-148) H Prothrombin Time 12.9 SECONDS (9.0-12.0) H INR International Normalized Ratio 1.3 INR Coagulation Comments VTE VTE Risk Score VTE Risk Score Reference Ranges: Score 0-1 = Low Risk (Aggressive mobilization; early ambulation; no VTE prophylaxis required) Score 2: Moderate Risk (Intermittent/Pneumatic Compression Device OR Lovenox/Heparin/Coumadin) Score 3-4: High Risk (Intermittent/Pneumatic Compression Device AND Lovenox/Heparin/Coumadin) Score > or = 5: Highest Risk (Intermittent/Pneumatic Compression Device AND Lovenox/Heparin/Coumadin) Assessment/Plan Assessment A 73-year-old male with history of atrial fibrillation, history of hemorrhagic stroke , hypertension, cervical fusion initially underwent Watchman procedure on 05/19. Later he developed airway obstruction secondary to oral bleed and went into code blue. He had ROSC, underwent tracheostomy for emergency airway, and transferred to ICU. Plan s/p PEA arrest Status post CPR and tracheostomy Acute hypoxemic respiratory failure -on mechanical ventilation with peep of five, FiO2 of 30% -not on pressors -management as per way inspector AFib with RVR s/p Watchman and still in AFib. -continue aspirin, Plavix Sepsis WBC-21.9, with procal 12.5 -secondary to UTI -continue Zosyn -off the epinephrine from yesterday -continue LR Status post PEG Status post colostomy Status post SPC -wound care management History of intracranial bleed with right side hemiparesis Code Status: Full code Line/tube: Right IJ DVT prophylaxis: SCD Nutrition: Tube feeds PT: Yes Prognosis: Guarded Disposition: Patient may transferred to the floor. Critical care time 35 minutes. Expected Outcome/Goals Expected Outcomes/Goals: maintain stable wt, TF tolerance, bowel regularity, wound healing SHUBHAM LEA MD May 22, 2024 13:33
[2024-05-22] MEDS ORDERED: dexamethasone 4mg/ml inj IV SCH (14:00)
--- NOTE | 2024-05-22 16:37 | CARDIOLOGY REPORT ---
APPROVED REPORT EXAM: Limited 2D, Doppler, and color-flow Echocardiogram. Patient Location: 2012 Blood Pressure: 106/46 mmHg Heart Rate: 60-80 bpm Rhythm: Atrial Fibrillation Indications ONE DAY POST WATCHMAN FLX ODIN CLOSURE DEVICE IMPLANTATION FOLLOW UP 27 mm WATCHMAN FLX DOIN CLOSURE DEVICE CUSTODIAL SERVICES MANAGER IS Luke GANNON MD [facility]60% EF ; small L to R shunt s/p transseptal puncture by color and spect ral Doppler. 2D Dimensions Ao Asc Diam.4.00 cmIVC 19.04 mm Tricuspid Valve TR P. Velocity 227 cm/s RAP ESTIMATE 10 mmHg TR Peak Gr. 21 mmHg RVSP 31 mmHg LEFT VENTRICLE LV appears normal in size with mild concentric hypertrophy. Overall systolic function appears normal. LVEF is 60%. RIGHT VENTRICLE RV appears mildly dilated with normal contractility. ATRIA LA appears moderately dilated. Intact interatrial septum with (small) L to R shunt s/p transseptal pu ncture by color and spectral Doppler. TRICUSPID VALVE The tricuspid valve is normal in structure. Moderate tricuspid regurgitation. GREAT VESSELS Ascending aorta measured at 4.0 cm. PERICARDIUM There is no pericardial effusion. Other Information Study Quality: Adequate Conclusion LV appears normal in size with mild concentric hypertrophy. Overall systolic function appears normal. LVEF is 60%. RV appears mildly dilated with normal contractility. LA appears moderately dilated. Intact interatrial septum with (small) L to R shunt s/p transseptal pu ncture by color and spectral Doppler. The tricuspid valve is normal in structure. Moderate tricuspid regurgitation. Ascending aorta measured at 4.0 cm. There is no pericardial effusion.
--- NOTE | 2024-05-22 16:46 | PROGRESS NOTE- Residence ---
Progress Note - Resident Providers to CC Resident Creating Document: SKYLAR CHAVIS RES CC: DILSHAD GOMEZ MD ~ Central Line/PICC still needed: N\A Sewell-Non Protocol Sewell Indications Met/Not Met: F/C Indications Met Antibiotic Timeout Antibiotic Ordered?: Yes If Yes, Indications: uti Subjective Transferred to PCU today afternoon. c/o pain over the back of the head. on trach collar with humidified O2 mist with FiO2 of 35% Objective Vital Signs Date Time Temp Pulse Resp B/P (MAP) Pulse Ox O2 Delivery O2 Flow Rate FiO2 05/22/24 15:42 81 05/22/24 14:00 97.9 17 133/73 (93) 98 Trach Collar 05/22/24 12:17 35 05/19/24 15:00 15.0 Result Diagram: 05/22/2421405/22/24214 General: AAO x4, not in apparent distress, on trach collar with humidified mist FiO2 of 35 Head: Normocephalic with an atraumatic Eyes: Pupils- 3mm, reacting to light, conjunctiva- anicteric Nose and throat: No polyps, septum- normal, no mucosal ulcers, 0 two no bleeding Neck: Supple, no lymphadenopathy, no carotid bruit, trach collar, Respiratory: No use of accessory muscles of respiration, Bilateral normal vesiscular breath sounds heard. No wheeze, rhochi or creps Cardiac: S1-S2 heard, rythm regular, no gallop/murmur Abdomen: G-tube in place, no erythema, no drainage noticed surrounding insertion site Colostomy bag noted in left hypochondriac region Suprapubic catheter noticed Extremities: no clubbing, no pedal edema, no deformities, peripheral pulses- 2+ Skin: warm and dry, no rash, no purpura Neuro: weakness of the right upper and lower extremity secondary to CVA Coagulation Studies Laboratory Tests Test 05/13/24 13:41 05/19/24 11:49 05/20/24 02:15 Activated Partial Thromboplast Time 32 SECONDS (22-32) Activated Clotting Time 279 SEC (101-148) H Prothrombin Time 12.9 SECONDS (9.0-12.0) H INR International Normalized Ratio 1.3 INR Coagulation Comments Assessment Assessment 73-year-old male with history of atrial fibrillation, history of hemorrhagic stroke , hypertension, cervical fusion initially underwent Watchman procedure on 05/19. Later he developed airway obstruction secondary to oral bleed and went into code blue. He had ROSC, underwent tracheostomy for emergency airway, and transferred to ICU. Plan Plan s/p PEA arrest Status post CPR and tracheostomy Acute hypoxemic respiratory failure Suspected laryngeal edema -off the MV since 05/21, currently on trach collar, with humdified 02 with FiO2 of 35% - received hydrocort 50 mg q6 -currently on IV Decadron 6 mg q.6 started from today -monitor SpO2 AFib with CVR s/p Watchman 05/19 -aspirin and Plavix restarted on 05/22 -HR-77, on metoprolol tartrate 50 mg q.6, changed to q12 from today -monitor for throat bleed Urosepsis -WBC-down to 21 from 33, with procal 12.5. Repeat procal -urine cultures positive for Enterococcus faecalis sensitive to vanco -DC Zosyn -continue vanco pharmacy to dose started on 05/20 Hypertension -continue amlodipine 10 mg once daily, and metoprolol Status post PEG Status post colostomy Status post SPC -wound care management History of intracranial bleed with right side hemiparesis Code Status: Full code Line/tube: PIV DVT prophylaxis: SCD Nutrition: G Tube feeds PT: Yes Prognosis: Guarded Disposition: PT eval, possibly needs rehab Skylar Chavis resident [facility] Date of Service: May 22, 2024 Billing Provider: DILSHAD GOMEZ MD Common Visit Codes: [id number] INP/OBS CARE(HIGH) SKYLAR CHAVIS, RES May 22, 2024 16:46 DILSHAD GOMEZ MD Jun 02, 2024 15:08
[2024-05-22] MEDS: acetaminophen 325mg/10.15ml oral unit dose solution PEG PRN (16:59)
[2024-05-22] MEDS ORDERED: acetaminophen 325mg tablet GT PRN (17:05)
[2024-05-22] MEDS: metoprolol tartrate 50mg tablet PEG SCH (20:21)
[2024-05-23] VITALS (9 sets, daily range): BP systolic 93–147; BP diastolic 53–84; PULSE 53–67; RESP 14–22; TEMP 97.1–98.3; O2SAT 93–100
[2024-05-23] MEDS: polyvinyl alcohol eye drops 15ML BOTTLE EACHEYE PRN (01:58)
[2024-05-23 06:50] LABS: BASOPHILS % (AUTO) 0.3 % (0-1); EOSINOPHILS % (AUTO) 0.1 % (0-6); HEMATOCRIT 35.6 % (42.0-52.0); HEMOGLOBIN 11.4 g/dl (14.0-17.9); LYMPHOCYTES # (AUTO) 1.1 X10'3 (1.1-4.8); LYMPHOCYTES % (AUTO) 9.1 % (21-51); MEAN CORPUSCULAR HEMOGLOBIN 29.9 PG (27.0-31.0); MEAN CORPUSCULAR VOLUME 93.5 FL (78-98); MEAN PLATELET VOLUME 7.9 FL (7.4-10.4); MONOCYTES # (AUTO) 0.5 X10'3 (0-0.9); MONOCYTES % (AUTO) 4.1 % (2-12); NEUTROPHILS # (AUTO) 10.5 X10'3 (1.8-7.7); NEUTROPHILS % (AUTO) 86.4 % (42-75); PLATELET COUNT 223 X10'3 (140-440); RED BLOOD COUNT 3.81 X10'6 (4.70-6.10); RED CELL DISTRIBUTION WIDTH 14.9 % (11.5-14.5); WHITE BLOOD COUNT 12.1 X10'3 (4.5-11.0)
[2024-05-23 07:30] LABS: ANION GAP 10 (8-16); BLOOD UREA NITROGEN 27 MG/DL (7-18); BUN/CREATININE RATIO 46.6 (10.0-20.0); CALCIUM 8.8 MG/DL (8.5-10.1); CREATININE 0.58 MG/DL (0.60-1.10); GLUCOSE 185 MG/DL (70-104); POTASSIUM 3.5 MMOL/L (3.5-5.1); SODIUM 148 MMOL/L (135-145); TOTAL CARBON DIOXIDE 23.9 MMOL/L (24-32); eCRCL 117 ML/MIN; eGFR > 90 ML/MIN
[2024-05-23 07:31] LABS: ALANINE AMINOTRANSFERASE 300 U/L (12-78); ALBUMIN 3.1 G/DL (3.4-5.0); ALBUMIN/GLOBULIN RATIO 0.8 (1.1-1.5); ALKALINE PHOSPHATASE 105 IU/L (46-116); ASPARTATE AMINO TRANSFERASE 226 U/L (10-37); BILIRUBIN,TOTAL 1.6 MG/DL (0.1-1.0); MAGNESIUM 2.2 MG/DL (1.5-2.4); PHOSPHORUS 2.5 MG/DL (2.3-4.5); PREALBUMIN 31.5 MG/DL (19-36); TOTAL PROTEIN 7.2 G/DL (6.4-8.2)
[2024-05-23 07:33] LABS: CHLORIDE 114 MMOL/L (99-107)
[2024-05-23] MEDS: amLODIPine 5mg tablet PEG SCH (08:00)
[2024-05-23 08:57] LABS: NUCLEATED RED BLOOD CELLS 2 /100WBC (0-0); TOTAL CELLS COUNTED 100
[2024-05-23 08:59] LABS: PLATELET ESTIMATE NORMAL
[2024-05-23] MEDS: dextrose 5%-water 1,000 ML IV SCH (09:40)
--- NOTE | 2024-05-23 13:16 | PROGRESS NOTE- Residence ---
Progress Note - Resident Providers to CC Resident Creating Document: SKYLAR CHAVIS RES CC: DILSHAD GOMEZ MD ~ Antibiotic Timeout Antibiotic Ordered?: Yes If Yes, Indications: uti Subjective No acute overnight events noted seen today morning in the presence of his family. Patient stated he is having back pain 10/16, and requesting a [place]. No other complaint They does not want him to go to rehab at the time of discharge Objective Vital Signs Date Time Temp Pulse Resp B/P (MAP) Pulse Ox O2 Delivery O2 Flow Rate FiO2 05/23/24 10:23 13 05/23/24 09:49 85 05/23/24 03:28 35 05/23/24 02:00 97.8 131/61 (84) 100 Trach Collar 8.0 Result Diagram: 05/23/2462305/23/24623 General: AAO x4, not in apparent distress, on trach collar with humidified mist FiO2 of 35 Head: Normocephalic with an atraumatic Eyes: Pupils- 3mm, reacting to light, conjunctiva- anicteric Nose and throat: No polyps, septum- normal, no mucosal ulcers, throat no bleeding Neck: Supple, no lymphadenopathy, no carotid bruit, trach collar, Respiratory: No use of accessory muscles of respiration, Bilateral normal vesiscular breath sounds heard. No wheeze, rhochi or creps Cardiac: S1-S2 heard, rythm irregular, no gallop/murmur Abdomen: G-tube in place, no erythema, no drainage noticed surrounding insertion site Colostomy bag noted in left hypochondriac region Suprapubic catheter noticed Extremities: no clubbing, no pedal edema, no deformities, peripheral pulses- 2+ Skin: warm and dry, no rash, no purpura Neuro: weakness of the right upper and lower extremity secondary to CVA Coagulation Studies Laboratory Tests Test 05/13/24 13:41 05/19/24 11:49 05/20/24 02:15 Activated Partial Thromboplast Time 32 SECONDS (22-32) Activated Clotting Time 279 SEC (101-148) H Prothrombin Time 12.9 SECONDS (9.0-12.0) H INR International Normalized Ratio 1.3 INR Coagulation Comments Assessment Assessment 73-year-old male with history of atrial fibrillation, history of hemorrhagic stroke , hypertension, cervical fusion initially underwent Watchman procedure on 05/19. Later he developed airway obstruction secondary to oral bleed and went into code blue. He had ROSC, underwent tracheostomy for emergency airway, and transferred to ICU. Plan Plan s/p PEA arrest Status post CPR and tracheostomy Acute hypoxemic respiratory failure Suspected laryngeal edema -off the MV since 05/21, currently on trach collar, with humdified 02 with FiO2 of 35% - received hydrocort 50 mg q6 -currently on IV Decadron 6 mg q.6 started from today -monitor SpO2 -Dr. Castro, produce runner consulted for the management of tracheostomy. Appreciate recs AFib with CVR s/p Watchman 05/19 -aspirin and Plavix restarted on 05/22 -on metoprolol tartrate 50 mg q12 from -monitor for throat bleed Urosepsis -WBC-down to 21 from 33, with procal 12.5. Repeat procal-1.19 -urine cultures positive for Enterococcus faecalis sensitive to vanco -DC Zosyn -continue vanco pharmacy to dose started on 05/20 Hypertension -continue amlodipine 10 mg once daily, and metoprolol Status post PEG Status post colostomy Status post SPC -wound care management History of intracranial bleed with right side hemiparesis Code Status: Full code Line/tube: PIV DVT prophylaxis: SCD Nutrition: G Tube feeds PT: Yes Prognosis: Guarded Disposition: DC to home in 2-3 days Skylar Chavis resident [facility] Date of Service: May 23, 2024 Billing Provider: DILSHAD GOMEZ MD Common Visit Codes: [id number] INP/OBS CARE(HIGH) SKYLAR CHAVIS, RES May 23, 2024 13:16 DILSHAD GOMEZ MD Jun 02, 2024 15:09
--- NOTE | 2024-05-23 16:26 | PROGRESS NOTE ---
Progress Note Cardiology Providers to CC ~ Subjective Subjective Patient downgraded from the ICU to the progressive care unit. Remains on trach mist. Overall, doing well. Does plan for rehab. Objective Result Diagram: 05/23/2462305/23/24623 Objective General: Awake, alert, oriented. No apparent distress Neck: Supple. Trach tube in place with trach mist. Respiratory: Lungs are coarse. No respiratory distress. Chest: Normal shape and size. No accessory muscle use. Cardiovascular: Irregularly irregular. S1-S2. No murmur, gallop, rub. Extremities: No lower extremity edema, cyanosis or clubbing. Neurologic: Alert and oriented x4. Nonfocal Psychiatric: Normal mood and affect. Skin: Normal color. Warm and dry. Coagulation Studies Laboratory Tests Test 05/13/24 13:41 05/19/24 11:49 05/20/24 02:15 Activated Partial Thromboplast Time 32 SECONDS (22-32) Activated Clotting Time 279 SEC (101-148) H Prothrombin Time 12.9 SECONDS (9.0-12.0) H INR International Normalized Ratio 1.3 INR Coagulation Comments Problem\Assessment\Plan Additional Plan This is a 73-year-old male who presented for planned left atrial appendage occlusion with Watchman. Postoperatively developed leading to the oropharynx with subsequent respiratory distress. The following is his problem list: Atrial fibrillation Status post Watchman. Postoperative echo reveals no pericardial effusion. -continue aspirin 81 mg daily indefinitely -Plavix 75 mg daily for six months -follow-up imaging at 45 days. Given difficulty passing SOWMYA probe will plan for CTA. Respiratory distress secondary to bleeding to the oropharynx Subsequently PEA arrest with ROSC after airway secured Underwent emergent surgical airway Briefly required vasopressors. Now off any pressors or sedation and doing well. 05/23/24: doing well out of ICU. Concern for laryngeal edema and started on steroids. History of CVA Patient had intracranial hemorrhage in the past Right-sided deficits Urosepsis -mgt per hospitlaist. Discussed with Luke Pelaez. cardiac condition is stable. If any further cardiac needs please contact us. we will sign off. Supervising Physician: LALO Jimenez NP May 23, 2024 16:26
[2024-05-23] MEDS: enoxaparin 40mg/0.4ml syringe SUBCUT SCH (20:22)
[2024-05-24] VITALS (9 sets, daily range): BP systolic 114–153; BP diastolic 52–76; PULSE 63–91; RESP 14–20; TEMP 97.2–98.5; O2SAT 92–98
[2024-05-24 06:58] LABS: BASOPHILS # (AUTO) 0.1 X10'3 (0-0.2); BASOPHILS % (AUTO) 0.4 % (0-1); EOSINOPHILS % (AUTO) 0.1 % (0-6); HEMATOCRIT 35.1 % (42.0-52.0); HEMOGLOBIN 11.5 g/dl (14.0-17.9); LYMPHOCYTES # (AUTO) 1.6 X10'3 (1.1-4.8); LYMPHOCYTES % (AUTO) 10.5 % (21-51); MEAN CORPUSCULAR HEMOGLOBIN 30.3 PG (27.0-31.0); MEAN CORPUSCULAR HGB CONC 32.8 g/dL (33.0-36.5); MEAN CORPUSCULAR VOLUME 92.5 FL (78-98); MEAN PLATELET VOLUME 8.3 FL (7.4-10.4); MONOCYTES # (AUTO) 0.8 X10'3 (0-0.9); MONOCYTES % (AUTO) 5.2 % (2-12); NEUTROPHILS # (AUTO) 12.5 X10'3 (1.8-7.7); NEUTROPHILS % (AUTO) 83.8 % (42-75); PLATELET COUNT 258 X10'3 (140-440); RED BLOOD COUNT 3.79 X10'6 (4.70-6.10); RED CELL DISTRIBUTION WIDTH 14.4 % (11.5-14.5); WHITE BLOOD COUNT 14.9 X10'3 (4.5-11.0)
[2024-05-24 07:48] LABS: ALANINE AMINOTRANSFERASE 442 U/L (12-78); ALBUMIN 3.3 G/DL (3.4-5.0); ALBUMIN/GLOBULIN RATIO 0.8 (1.1-1.5); ALKALINE PHOSPHATASE 117 IU/L (46-116); ANION GAP 10 (8-16); ASPARTATE AMINO TRANSFERASE 209 U/L (10-37); BANDS% (MANUAL) 2 % (0-10); BILIRUBIN,TOTAL 1.3 MG/DL (0.1-1.0); BLOOD UREA NITROGEN 31 MG/DL (7-18); BUN/CREATININE RATIO 55.4 (10.0-20.0); CALCIUM 9.3 MG/DL (8.5-10.1); CHLORIDE 113 MMOL/L (99-107); CREATININE 0.56 MG/DL (0.60-1.10); GLUCOSE 193 MG/DL (70-104); LYMPHOCYTES % (MANUAL) 12 % (21-51); MAGNESIUM 2.3 MG/DL (1.5-2.4); MONOCYTES % (MANUAL) 7 % (2-12); NEUTROPHILS % (MANUAL) 77 % (42-75); PHOSPHORUS 2.9 MG/DL (2.3-4.5); POTASSIUM 3.7 MMOL/L (3.5-5.1); SODIUM 151 MMOL/L (135-145); TOTAL CARBON DIOXIDE 27.8 MMOL/L (24-32); TOTAL CELLS COUNTED 100; TOTAL PROTEIN 7.5 G/DL (6.4-8.2); eCRCL 121 ML/MIN; eGFR > 90 ML/MIN
[2024-05-24 07:49] LABS: METAMYLEOCYTES% (MANUAL) 2 % (0-0); PLATELET ESTIMATE NORMAL
--- NOTE | 2024-05-24 14:06 | PROGRESS NOTE- Residence ---
Progress Note - Resident Providers to CC Resident Creating Document: SKYLAR CHAVIS RES CC: DILSHAD GOMEZ MD ~ Central Line/PICC still needed: N\A Antibiotic Timeout Antibiotic Ordered?: Yes If Yes, Indications: uti Subjective No acute overnight events noted seen today morning in the presence of his family. Patient is communicating with words today. Still on tracheal mist of 8 L with FiO2 of 35% No other complaints Objective Vital Signs Date Time Temp Pulse Resp B/P (MAP) Pulse Ox O2 Delivery O2 Flow Rate FiO2 05/24/24 12:05 21 05/24/24 11:00 97.3 63 14 143/52 (82) 97 Trach Collar 8.0 Result Diagram: 05/24/2462605/24/24626 General: AAO x4, not in apparent distress, on trach collar with humidified mist FiO2 of 35 Head: Normocephalic with an atraumatic Eyes: Pupils- 3mm, reacting to light, conjunctiva- anicteric Nose and throat: No polyps, septum- normal, no mucosal ulcers, throat no bleeding Neck: Supple, no lymphadenopathy, no carotid bruit, trach collar, Respiratory: No use of accessory muscles of respiration, Bilateral normal vesiscular breath sounds heard. No wheeze, rhochi or creps Cardiac: S1-S2 heard, rythm irregular, no gallop/murmur Abdomen: G-tube in place, no erythema, no drainage noticed surrounding insertion site Colostomy bag noted in left hypochondriac region Suprapubic catheter noticed Extremities: no clubbing, no pedal edema, no deformities, peripheral pulses- 2+ Skin: warm and dry, no rash, no purpura, sacral sore-poa Neuro: weakness of the right upper and lower extremity secondary to CVA, right wrist and right leg strapped Coagulation Studies Laboratory Tests Test 05/13/24 13:41 05/19/24 11:49 05/20/24 02:15 Activated Partial Thromboplast Time 32 SECONDS (22-32) Activated Clotting Time 279 SEC (101-148) H Prothrombin Time 12.9 SECONDS (9.0-12.0) H INR International Normalized Ratio 1.3 INR Coagulation Comments Assessment Assessment 73-year-old male with history of atrial fibrillation, history of hemorrhagic stroke , hypertension, cervical fusion initially underwent Watchman procedure on 05/19. Later he developed airway obstruction secondary to oral bleed and went into code blue. He had ROSC, underwent tracheostomy for emergency airway, and transferred to ICU. Plan Plan s/p PEA arrest Status post CPR and tracheostomy Acute hypoxemic respiratory failure Suspected laryngeal edema -off the MV since 05/21, currently on trach collar, with humdified 02 with FiO2 of 35% - received hydrocort 50 mg q6 -currently on IV Decadron 6 mg q.6 started from 05/22 -monitor SpO2 -Dr. Castro, core analyst consulted for the management of tracheostomy. Appreciate recs AFib with CVR s/p Watchman 05/19 -aspirin and Plavix restarted on 05/22 -on metoprolol tartrate 50 mg q12 -monitor for throat bleed Urosepsis - Repeat procal-1. -urine cultures positive for Enterococcus faecalis sensitive to vanco -DC Zosyn -continue vanco pharmacy to dose started on 05/20 (day 5) Hypertension -continue amlodipine 10 mg once daily, and metoprolol Hypernatremia -sodium 151 -free water deficit 3.6 l -continue D5 at 50 cc per hr -increase water flushes to 250 cc q.4h Normocytic anemia -hemoglobin stable at 11 Leukocytosis -initially secondary to sepsis resolved -WBC went up to 14 from 12 likely secondary to steroid induced Status post PEG Status post colostomy Status post SPC -wound care management History of intracranial bleed with right side hemiparesis Code Status: Full code Line/tube: PIV DVT prophylaxis: SCD. lovenox Nutrition: G Tube feeds PT: Yes Prognosis: Guarded Disposition: fam declined rehab, dc to home once off the trach Skylar Chavis MD IM resident [facility] Date of Service: May 24, 2024 Billing Provider: DILSHAD GOMEZ MD Common Visit Codes: [id number] INP/OBS CARE(HIGH) SKYLAR CHAVIS, RES May 24, 2024 14:06 DILSHAD GOMEZ MD Jun 02, 2024 15:09
[2024-05-25] VITALS (9 sets, daily range): BP systolic 124–153; BP diastolic 55–79; PULSE 58–80; RESP 12–20; TEMP 97–98; O2SAT 94–98
[2024-05-25 06:42] LABS: BASOPHILS % (AUTO) 0.2 % (0-1); EOSINOPHILS % (AUTO) 0 % (0-6); HEMATOCRIT 36.2 % (42.0-52.0); HEMOGLOBIN 11.8 g/dl (14.0-17.9); LYMPHOCYTES # (AUTO) 1.4 X10'3 (1.1-4.8); LYMPHOCYTES % (AUTO) 7.5 % (21-51); MEAN CORPUSCULAR HEMOGLOBIN 29.9 PG (27.0-31.0); MEAN CORPUSCULAR HGB CONC 32.6 g/dL (33.0-36.5); MEAN CORPUSCULAR VOLUME 91.6 FL (78-98); MEAN PLATELET VOLUME 7.9 FL (7.4-10.4); MONOCYTES # (AUTO) 0.9 X10'3 (0-0.9); MONOCYTES % (AUTO) 4.9 % (2-12); NEUTROPHILS # (AUTO) 16.2 X10'3 (1.8-7.7); NEUTROPHILS % (AUTO) 87.4 % (42-75); PLATELET COUNT 257 X10'3 (140-440); RED BLOOD COUNT 3.95 X10'6 (4.70-6.10); RED CELL DISTRIBUTION WIDTH 14.6 % (11.5-14.5); WHITE BLOOD COUNT 18.5 X10'3 (4.5-11.0)
[2024-05-25 07:23] LABS: ALBUMIN 3.2 G/DL (3.4-5.0); ANION GAP 7 (8-16); BLOOD UREA NITROGEN 30 MG/DL (7-18); CHLORIDE 112 MMOL/L (99-107); GLUCOSE 178 MG/DL (70-104); POTASSIUM 3.3 MMOL/L (3.5-5.1); SODIUM 146 MMOL/L (135-145); TOTAL CARBON DIOXIDE 26.7 MMOL/L (24-32); eCRCL 136 ML/MIN; eGFR > 90 ML/MIN
--- NOTE | 2024-05-25 14:04 | PROGRESS NOTE- Residence ---
Progress Note - Resident Providers to CC Resident Creating Document: SKYLAR CHAVIS RES CC: DILSHAD GOMEZ MD ~ Central Line/PICC still needed: N\A Antibiotic Timeout Antibiotic Ordered?: Yes Subjective Last night he had mild bleeding from the Lovenox injection site, Lovenox injection was held and abdomen bleeding site was dressed. Currently no bleeding seen today morning in the presence of his family. Denies throat pain. No other complaint Still on tracheal mist of 8 L with FiO2 of 28% No other complaints Objective Vital Signs Date Time Temp Pulse Resp B/P (MAP) Pulse Ox O2 Delivery O2 Flow Rate FiO2 05/25/24 13:04 18 05/25/24 08:17 62 05/25/24 02:57 28 05/25/24 02:00 97.9 140/79 (99) 94 Trach Collar 6.0 Result Diagram: 05/25/24 0600 05/25/24 06 General: AAO x4, not in apparent distress, on trach collar with humidified mist FiO2 of 35 Head: Normocephalic with an atraumatic Eyes: Pupils- 3mm, reacting to light, conjunctiva- anicteric Nose and throat: No polyps, septum- normal, no mucosal ulcers, throat no bleeding Neck: Supple, no lymphadenopathy, no carotid bruit, trach collar, Respiratory: No use of accessory muscles of respiration, Bilateral normal vesiscular breath sounds heard. No wheeze, rhochi or creps Cardiac: S1-S2 heard, rythm irregular, no gallop/murmur Abdomen: G-tube in place, no erythema, no drainage noticed surrounding insertion site Colostomy bag noted in left hypochondriac region Suprapubic catheter noticed No bleeding from the Lovenox injection site Extremities: no clubbing, no pedal edema, no deformities, peripheral pulses- 2+ Skin: warm and dry, no rash, no purpura, sacral sore-poa Neuro: weakness of the right upper and lower extremity secondary to CVA, right wrist and right leg strapped Coagulation Studies Laboratory Tests Test 05/13/24 13:41 05/19/24 11:49 05/20/24 02:15 Activated Partial Thromboplast Time 32 SECONDS (22-32) Activated Clotting Time 279 SEC (101-148) H Prothrombin Time 12.9 SECONDS (9.0-12.0) H INR International Normalized Ratio 1.3 INR Coagulation Comments Assessment Assessment 73-year-old male with history of atrial fibrillation, history of hemorrhagic stroke , hypertension, cervical fusion initially underwent Watchman procedure on 05/19. Later he developed airway obstruction secondary to oral bleed and went into code blue. He had ROSC, underwent tracheostomy for emergency airway, and transferred to ICU. Plan Plan s/p PEA arrest Status post CPR and tracheostomy Acute hypoxemic respiratory failure Suspected laryngeal edema -off the MV since 05/21, currently on trach collar, with humdified 02 with FiO2 of 35% - received hydrocort 50 mg q6 -currently on IV Decadron 6 mg q.6 started from 05/22, weaned down to Decadron 4 mg q.6 on 05/25 -monitor SpO2 -Dr. Castro, residential property tax appraiser consulted for the management of tracheostomy. Appreciate recs AFib with CVR s/p Watchman 05/19 -aspirin and Plavix restarted on 05/22 -on metoprolol tartrate 50 mg q12 -monitor for throat bleed Urosepsis - Repeat procal-03.27 -urine cultures positive for Enterococcus faecalis sensitive to vanco -DC Zosyn -continue vanco pharmacy to dose started on 05/20 (day 6) Hypertension -continue amlodipine 10 mg once daily, and metoprolol Hypernatremia -sodium down to 146 from 151 -continue D5 at 50 cc per hr, can DC D5 tomorrow once sodium is normal -continue water flushes to 250 cc q.4h Hypokalemia K 3.2 replacement per protocol Normocytic anemia -hemoglobin stable at 11 Leukocytosis -initially secondary to sepsis resolved -WBC went up to 18 from 12 likely secondary to steroid induced, procal repeat today is normal Status post PEG Status post colostomy Status post SPC -wound care management History of intracranial bleed with right side hemiparesis Code Status: Full code Line/tube: PIV DVT prophylaxis: SCD. lovenox on hold i/v/o injection site bleed Nutrition: G Tube feeds PT: Yes Prognosis: Guarded Disposition: fam declined rehab, dc to home once off the trach Skylar Chavis MD resident [facility] Date of Service: May 25, 2024 Billing Provider: DILSHAD GOMEZ MD Common Visit Codes: [id number] INP/OBS CARE(HIGH) SKYLAR CHAVIS, RES May 25, 2024 14:04 DILSHAD GOMEZ MD Jun 02, 2024 15:09
[2024-05-25] MEDS: dexamethasone 4mg/ml inj IV SCH (15:33)
[2024-05-26] VITALS (12 sets, daily range): BP systolic 129–151; BP diastolic 42–69; PULSE 56–95; RESP 12–22; TEMP 97.4–98; O2SAT 90–99
[2024-05-26] MEDS: potassium Cl 40MEQ/1/2NS 520ml 520 ML IV PRN (03:25)
[2024-05-26 06:45] LABS: BASOPHILS % (AUTO) 0.2 % (0-1); EOSINOPHILS % (AUTO) 0.1 % (0-6); HEMOGLOBIN 11.6 g/dl (14.0-17.9); LYMPHOCYTES # (AUTO) 1.2 X10'3 (1.1-4.8); LYMPHOCYTES % (AUTO) 4.6 % (21-51); MEAN CORPUSCULAR HEMOGLOBIN 29.6 PG (27.0-31.0); MEAN CORPUSCULAR HGB CONC 32.3 g/dL (33.0-36.5); MEAN CORPUSCULAR VOLUME 91.7 FL (78-98); MEAN PLATELET VOLUME 8.1 FL (7.4-10.4); MONOCYTES # (AUTO) 1.7 X10'3 (0-0.9); MONOCYTES % (AUTO) 6.7 % (2-12); NEUTROPHILS # (AUTO) 22.8 X10'3 (1.8-7.7); NEUTROPHILS % (AUTO) 88.4 % (42-75); PLATELET COUNT 283 X10'3 (140-440); RED BLOOD COUNT 3.92 X10'6 (4.70-6.10); RED CELL DISTRIBUTION WIDTH 14.7 % (11.5-14.5)
[2024-05-26 07:00] LABS: ANION GAP 10 (8-16); BLOOD UREA NITROGEN 34 MG/DL (7-18); BUN/CREATININE RATIO 66.7 (10.0-20.0); CALCIUM 8.7 MG/DL (8.5-10.1); CHLORIDE 109 MMOL/L (99-107); CREATININE 0.51 MG/DL (0.60-1.10); GLUCOSE 198 MG/DL (70-104); POTASSIUM 3.4 MMOL/L (3.5-5.1); PREALBUMIN 34.7 MG/DL (19-36); SODIUM 144 MMOL/L (135-145); TOTAL CARBON DIOXIDE 25.4 MMOL/L (24-32); eCRCL 133 ML/MIN; eGFR > 90 ML/MIN
[2024-05-26 07:03] LABS: WHITE BLOOD COUNT 25.7 X10'3 (4.5-11.0)
[2024-05-26 08:47] LABS: TOTAL CELLS COUNTED 100
[2024-05-26 08:48] LABS: PLATELET ESTIMATE NORMAL
--- NOTE | 2024-05-26 17:58 | PROGRESS NOTE- Residence ---
Progress Note - Resident Providers to CC Resident Creating Document: SKYLAR CHAVIS RES CC: DILSHAD GOMEZ MD ~ Antibiotic Timeout Antibiotic Ordered?: Yes If Yes, Indications: uti Subjective Family stated there is some concern of loose stool in the colostomy bag however this also stated he does not smell like C diff. Infectious control ordered C diff testing Patient has no fever, no other complaints. Able to talk well. Dr. Elliott initially plan to decannulate tracheostomy today however decided to go for it tomorrow Objective Vital Signs Date Time Temp Pulse Resp B/P (MAP) Pulse Ox O2 Delivery O2 Flow Rate FiO2 05/26/24 16:15 69 20 92 Cool/Heated Aerosol Mist+ 8 28 05/26/24 11:00 97.9 129/42 (71) Result Diagram: 05/26/2462405/26/24624 General: AAO x4, not in apparent distress, on trach collar with humidified mist FiO2 of 28 Head: Normocephalic with an atraumatic Eyes: Pupils- 3mm, reacting to light, conjunctiva- anicteric Nose and throat: No polyps, septum- normal, no mucosal ulcers, throat no bleeding Neck: Supple, no lymphadenopathy, no carotid bruit, trach collar, Respiratory: No use of accessory muscles of respiration, Bilateral normal vesiscular breath sounds heard. No wheeze, rhochi or creps Cardiac: S1-S2 heard, rythm irregular, no gallop/murmur Abdomen: G-tube in place, no erythema, no drainage noticed surrounding insertion site Colostomy bag noted in left hypochondriac region Suprapubic catheter noticed No bleeding from the Lovenox injection site Extremities: no clubbing, no pedal edema, no deformities, peripheral pulses- 2+ Skin: warm and dry, no rash, no purpura, sacral sore-poa Neuro: weakness of the right upper and lower extremity secondary to CVA, right wrist and right leg strapped Coagulation Studies Laboratory Tests Test 05/13/24 13:41 05/19/24 11:49 05/20/24 02:15 Activated Partial Thromboplast Time 32 SECONDS (22-32) Activated Clotting Time 279 SEC (101-148) H Prothrombin Time 12.9 SECONDS (9.0-12.0) H INR International Normalized Ratio 1.3 INR Coagulation Comments Assessment Assessment 73-year-old male with history of atrial fibrillation, history of hemorrhagic stroke , hypertension, cervical fusion initially underwent Watchman procedure on 05/19. Later he developed airway obstruction secondary to oral bleed and went into code blue. He had ROSC, underwent tracheostomy for emergency airway, and transferred to ICU. Plan Plan s/p PEA arrest Status post CPR and tracheostomy Acute hypoxemic respiratory failure Suspected laryngeal edema -off the MV since 05/21, currently on trach collar, with humdified 02 with FiO2 of 28% - received hydrocort 50 mg q6 - weaned down to Decadron 4 mg q.6 on 05/25, -monitor SpO2 -Dr. Castro, welding inspector consulted for the management of tracheostomy. Appreciate recs. Possible decannulation of tracheostomy tomorrow by Dr. Gloria Purdy with CVR s/p Watchman 05/19 -aspirin and Plavix restarted on 05/22 -on metoprolol tartrate 50 mg q12 -monitor for throat bleed Urosepsis - Repeat procal-03.27 -urine cultures positive for Enterococcus faecalis sensitive to vanco -DC Zosyn -continue vanco pharmacy to dose started on 05/20 (day 7), Dr. Herrera, ID recommended to stop vancomycin after seven days. appreciate recs Hypertension -continue amlodipine 10 mg once daily, and metoprolol Hypernatremia- resolved -sodium 144 -DC D5 -continue water flushes to 250 cc q.4h Hypokalemia K 3.4 replacement per protocol Normocytic anemia -hemoglobin stable at 11 Leukocytosis -initially secondary to sepsis resolved -WBC went up to 25>>18>>14>>12 likely secondary to steroid induced, procal repeat today is normal -follow up on C diff testing Status post PEG Status post colostomy Status post SPC -wound care management History of intracranial bleed with right side hemiparesis Code Status: Full code Line/tube: PIV DVT prophylaxis: SCD.lovenox Nutrition: G Tube feeds PT: Yes Prognosis: Guarded Disposition: fam declined rehab, dc to home once off the trach Skylar Chavis MD IM resident [facility] Date of Service: May 26, 2024 Billing Provider: DILSHAD GOMEZ MD Common Visit Codes: [id number] INP/OBS CARE(HIGH) SKYLAR CHAVIS, RES May 26, 2024 17:58 DILSHAD GOMEZ MD Jun 02, 2024 15:09
[2024-05-27] VITALS (17 sets, daily range): BP systolic 119–145; BP diastolic 50–65; PULSE 60–97; RESP 13–18; TEMP 94.6–98; O2SAT 93–99
[2024-05-27 06:29] LABS: BASOPHILS % (AUTO) 0.1 % (0-1); EOSINOPHILS % (AUTO) 0 % (0-6); HEMOGLOBIN 11.6 g/dl (14.0-17.9); LYMPHOCYTES % (AUTO) 7.3 % (21-51); MEAN CORPUSCULAR HEMOGLOBIN 30.2 PG (27.0-31.0); MEAN CORPUSCULAR HGB CONC 33.3 g/dL (33.0-36.5); MEAN CORPUSCULAR VOLUME 90.7 FL (78-98); MEAN PLATELET VOLUME 7.8 FL (7.4-10.4); MONOCYTES # (AUTO) 0.8 X10'3 (0-0.9); MONOCYTES % (AUTO) 5.7 % (2-12); NEUTROPHILS # (AUTO) 11.7 X10'3 (1.8-7.7); NEUTROPHILS % (AUTO) 86.9 % (42-75); PLATELET COUNT 259 X10'3 (140-440); RED BLOOD COUNT 3.86 X10'6 (4.70-6.10); RED CELL DISTRIBUTION WIDTH 14.7 % (11.5-14.5); WHITE BLOOD COUNT 13.4 X10'3 (4.5-11.0)
[2024-05-27 06:48] LABS: ALBUMIN 2.9 G/DL (3.4-5.0); ANION GAP 9 (8-16); BLOOD UREA NITROGEN 32 MG/DL (7-18); BUN/CREATININE RATIO 74.4 (10.0-20.0); CALCIUM 8.8 MG/DL (8.5-10.1); CHLORIDE 110 MMOL/L (99-107); CREATININE 0.43 MG/DL (0.60-1.10); GLUCOSE 166 MG/DL (70-104); POTASSIUM 3.9 MMOL/L (3.5-5.1); SODIUM 144 MMOL/L (135-145); TOTAL CARBON DIOXIDE 25.3 MMOL/L (24-32); eCRCL 158 ML/MIN; eGFR > 90 ML/MIN
[2024-05-27] MEDS: ipratropium/albuterol 3ml nebule NEB PRN (11:05)
--- NOTE | 2024-05-27 14:18 | PROGRESS NOTE- Residence ---
Progress Note - Resident Providers to CC Resident Creating Document: SKYALR CHAVIS RES CC: DILSHAD GOMEZ MD ~ Antibiotic Timeout Antibiotic Ordered?: No Subjective Trach collar is removed today morning. Patient is currently on oxygen nasal cannula 3 liters/minute. No respiratory distress. Still having loose stools in the colostomy bag. C diff pending. Denies fever. No other complaints. Objective Vital Signs Date Time Temp Pulse Resp B/P (MAP) Pulse Ox O2 Delivery O2 Flow Rate FiO2 05/27/24 11:17 68 18 Nasal Cannula 3.0 05/27/24 11:11 99 05/27/24 11:06 32 05/27/24 11:00 98.0 126/50 (75) Result Diagram: 05/27/24 0553 05/27/24 0553 General: AAO x4, not in apparent distress, on trach collar with humidified mist FiO2 of 28 Head: Normocephalic with an atraumatic Eyes: Pupils- 3mm, reacting to light, conjunctiva- anicteric Nose and throat: No polyps, septum- normal, no mucosal ulcers, throat no bleeding Neck: Supple, no lymphadenopathy, no carotid bruit, dressing done at the tracheostomy site. Trach tube removed Respiratory: No use of accessory muscles of respiration, Bilateral normal vesiscular breath sounds heard. No wheeze, rhochi or creps Cardiac: S1-S2 heard, rythm irregular, no gallop/murmur Abdomen: G-tube in place, no erythema, no drainage noticed surrounding insertion site Colostomy bag noted in left hypochondriac region Suprapubic catheter noticed No bleeding from the Lovenox injection site Extremities: no clubbing, no pedal edema, no deformities, peripheral pulses- 2+ Skin: warm and dry, no rash, no purpura, sacral sore-poa Neuro: weakness of the right upper and lower extremity secondary to CVA, right wrist and right leg strapped Coagulation Studies Laboratory Tests Test 05/13/24 13:41 05/19/24 11:49 05/20/24 02:15 Activated Partial Thromboplast Time 32 SECONDS (22-32) Activated Clotting Time 279 SEC (101-148) H Prothrombin Time 12.9 SECONDS (9.0-12.0) H INR International Normalized Ratio 1.3 INR Coagulation Comments Assessment Assessment 73-year-old male with history of atrial fibrillation, history of hemorrhagic stroke , hypertension, cervical fusion initially underwent Watchman procedure on 05/19. Later he developed airway obstruction secondary to oral bleed and went into code blue. He had ROSC, underwent tracheostomy for emergency airway, and transferred to ICU. Plan Plan s/p PEA arrest Status post CPR and tracheostomy Acute hypoxemic respiratory failure Suspected laryngeal edema -off the MV since 05/21, tracheostomy decannulation done on 05/27, currently on oxygen via nasal cannula 2 liters/min - received hydrocort 50 mg q6 - weaned down to Decadron 4 mg q.8 on 05/27, -monitor SpO2 -Dr. Castro, concert singer consulted for the management of tracheostomy. Appreciate AFib with CVR s/p Watchman 05/19 -aspirin and Plavix restarted on 05/22 -on metoprolol tartrate 50 mg q12 -monitor for throat bleed Urosepsis - Repeat procal-. -urine cultures positive for Enterococcus faecalis sensitive to vanco -DC Zosyn -continue vanco pharmacy to dose started on 05/20 (day 7), Dr. Herrera, ID recommended to stop vancomycin after seven days. appreciate recs, completed seven days of vancomycin on 05/26 Hypertension -continue amlodipine 10 mg once daily, and metoprolol Hypernatremia- resolved -sodium 144 -DC D5 -continue water flushes to 250 cc q.4h Hypokalemia K 3.4 replacement per protocol Normocytic anemia -hemoglobin stable at 11 Leukocytosis -initially secondary to sepsis resolved -WBC down to 13 today -WBC went up to 25>>18>>14>>12 likely secondary to steroid induced, procal repeat today is normal -follow up on C diff testing, follow up on Procal Status post PEG Status post colostomy Status post SPC -wound care management History of intracranial bleed with right side hemiparesis Code Status: Full code Line/tube: PIV DVT prophylaxis: SCD.lovenox Nutrition: G Tube feeds PT: Yes Prognosis: Guarded Disposition: fam declined rehab, dc to home possibly on Thursday Skylar Chavis MD IM resident [facility] Date of Service: May 27, 2024 Billing Provider: DILSHAD GOMEZ MD Common Visit Codes: [id number] INP/OBS CARE(HIGH) SKYLAR CHAVIS, RES May 27, 2024 14:18 DILSHAD GOMEZ MD Jun 02, 2024 15:10
[2024-05-27] MEDS: dexamethasone 4mg/ml inj IV SCH (16:14)
[2024-05-28] VITALS (9 sets, daily range): BP systolic 123–140; BP diastolic 45–64; PULSE 62–86; RESP 15–20; TEMP 97.3–97.7; O2SAT 96–100
[2024-05-28 06:10] LABS: ANION GAP 6 (8-16); BLOOD UREA NITROGEN 38 MG/DL (7-18); BUN/CREATININE RATIO 86.4 (10.0-20.0); CALCIUM 9.2 MG/DL (8.5-10.1); CHLORIDE 110 MMOL/L (99-107); CREATININE 0.44 MG/DL (0.60-1.10); GLUCOSE 158 MG/DL (70-104); SODIUM 146 MMOL/L (135-145); TOTAL CARBON DIOXIDE 29.8 MMOL/L (24-32); eCRCL 154 ML/MIN; eGFR > 90 ML/MIN
[2024-05-28 06:13] LABS: BASOPHILS % (AUTO) 0.1 % (0-1); EOSINOPHILS % (AUTO) 0 % (0-6); HEMATOCRIT 36.6 % (42.0-52.0); HEMOGLOBIN 11.9 g/dl (14.0-17.9); LYMPHOCYTES # (AUTO) 0.9 X10'3 (1.1-4.8); LYMPHOCYTES % (AUTO) 5.7 % (21-51); MEAN CORPUSCULAR HGB CONC 32.7 g/dL (33.0-36.5); MEAN CORPUSCULAR VOLUME 91.7 FL (78-98); MEAN PLATELET VOLUME 8.2 FL (7.4-10.4); MONOCYTES % (AUTO) 6.2 % (2-12); PLATELET COUNT 276 X10'3 (140-440); RED BLOOD COUNT 3.99 X10'6 (4.70-6.10); RED CELL DISTRIBUTION WIDTH 14.8 % (11.5-14.5); WHITE BLOOD COUNT 15.9 X10'3 (4.5-11.0)
[2024-05-28 07:35] LABS: TOTAL CELLS COUNTED 100
[2024-05-28 07:36] LABS: PLATELET ESTIMATE NORMAL; POLYCHROMASIA FEW
[2024-05-28] MEDS ORDERED: VANCOMYCIN LEVEL IV ONE (10:30)
--- NOTE | 2024-05-28 10:54 | PROGRESS NOTE- Residence ---
Progress Note - Resident Providers to CC Resident Creating Document: PORTIA MINA RES ~ Antibiotic Timeout Antibiotic Ordered?: Yes Subjective Patient seen and examined today. He is comfortably resting in the bed. Requiring about 3 L oxygen via nasal cannula. No new complaints. Patient's at the bedside. She asked if he can use spirometer now. I spoke to the colon therapist-Dr. Castro who said it would not be much effective as he still has an open tracheostomy. Informed the same to the patient's she said she would like to wait for more days for him to start using spirometer Objective Vital Signs Date Time Temp Pulse Resp B/P (MAP) Pulse Ox O2 Delivery O2 Flow Rate FiO2 05/28/24 07:17 80 05/28/24 02:00 16 05/27/24 23:26 96 Nasal Cannula* 3 32 05/27/24 22:00 96.6 135/59 (84) Result Diagram: 05/28/2452505/28/24525 General: AAO x4, not in apparent distress down 3 L oxygen via nasal cannula Head: Normocephalic with an atraumatic Eyes: Pupils- 3mm, reacting to light, conjunctiva- anicteric Nose and throat: No polyps, septum- normal, no mucosal ulcers, throat no bleeding Neck: Supple, no lymphadenopathy, no carotid bruit, dressing done at the tracheostomy site. Trach tube removed Respiratory: No use of accessory muscles of respiration, Bilateral normal vesiscular breath sounds heard. Bilateral wheeze present. No rhochi or creps Cardiac: S1-S2 heard, rythm irregular, no gallop/murmur Abdomen: G-tube in place, no erythema, no drainage noticed surrounding insertion site Colostomy bag noted in left hypochondriac region Suprapubic catheter noticed No bleeding from the Lovenox injection site Extremities: no clubbing, no pedal edema, no deformities, peripheral pulses- 2+ Skin: warm and dry, no rash, no purpura, sacral sore-poa Neuro: weakness of the right upper and lower extremity secondary to CVA, right wrist and right leg strapped Coagulation Studies Laboratory Tests Test 05/13/24 13:41 05/19/24 11:49 05/20/24 02:15 Activated Partial Thromboplast Time 32 SECONDS (22-32) Activated Clotting Time 279 SEC (101-148) H Prothrombin Time 12.9 SECONDS (9.0-12.0) H INR International Normalized Ratio 1.3 INR Coagulation Comments Assessment Assessment 73-year-old male with history of atrial fibrillation, history of hemorrhagic stroke , hypertension, cervical fusion initially underwent Watchman procedure on 05/19. Later he developed airway obstruction secondary to oral bleed and went into code blue. He had ROSC, underwent tracheostomy for emergency airway, and transferred to ICU. Plan Plan s/p PEA arrest Status post CPR and tracheostomy Acute hypoxemic respiratory failure Suspected laryngeal edema -off the MV since 05/21, tracheostomy decannulation done on 05/27, currently on oxygen via nasal cannula 2 liters/min - received hydrocort 50 mg q6 - weaned down to Decadron 4 mg q.8 on 05/27, -monitor SpO2 -Dr. Castro, colon therapist consulted for the management of tracheostomy. Appreciate -could use spirometer. Per colon therapist, will not be much effective as he still has the tracheostomy AFib with CVR s/p Watchman 05/19 -aspirin and Plavix restarted on 05/22 -on metoprolol tartrate 50 mg q12 -monitor for throat bleed Urosepsis - Protocol negative today -urine cultures positive for Enterococcus faecalis sensitive to vanco -DC Zosyn -continue vanco pharmacy to dose started on 05/20 (day 7), Dr. Herrera, ID recommended to stop vancomycin after seven days. ailyn rectammy, completed seven days of vancomycin on 05/26 Hypertension -continue amlodipine 10 mg once daily, and metoprolol Hypernatremia- resolved -sodium slightly elevated today-146 -DC D5 -continue water flushes to 250 cc q.4h Hypokalemia K 3.4 replacement per protocol Normocytic anemia -hemoglobin stable at 11 Leukocytosis -initially secondary to sepsis resolved --slightly elevated WBC compared to yesterday. Protocol remained negative. No elevated temperatures. Likely reactive due to decannulation-removal of trach tube and he is also on steroids -WBC went up to 25>>18>>14>>12 likely secondary to steroid induced, procal repeat today is normal -C diff canceled by ID Status post PEG Status post colostomy Status post SPC -wound care management History of intracranial bleed with right side hemiparesis Code Status: Full code Line/tube: PIV DVT prophylaxis: SCD.lovenox Nutrition: G Tube feeds PT: Yes Prognosis: Guarded Disposition: fam declined rehab, dc to home possibly on Thursday Portia Mina MD Internal Medicine Resident, PGY 2 Date of Service: May 28, 2024 Billing Provider: DILSHAD GOMEZ MD Common Visit Codes: [id number] INP/OBS CARE(HIGH) PORTIA MINA RES May 28, 2024 10:54 DILSHAD GOMEZ MD Jun 02, 2024 15:10
[2024-05-29] VITALS (11 sets, daily range): BP systolic 118–137; BP diastolic 58–72; PULSE 62–79; RESP 14–22; TEMP 96.9–97.8; O2SAT 93–98
[2024-05-29 06:53] LABS: BASOPHILS % (AUTO) 0.1 % (0-1); EOSINOPHILS % (AUTO) 0 % (0-6); HEMATOCRIT 34.5 % (42.0-52.0); HEMOGLOBIN 11.3 g/dl (14.0-17.9); LYMPHOCYTES # (AUTO) 0.7 X10'3 (1.1-4.8); MEAN CORPUSCULAR HEMOGLOBIN 29.8 PG (27.0-31.0); MEAN CORPUSCULAR HGB CONC 32.7 g/dL (33.0-36.5); MEAN CORPUSCULAR VOLUME 91.2 FL (78-98); MEAN PLATELET VOLUME 8.3 FL (7.4-10.4); MONOCYTES # (AUTO) 0.8 X10'3 (0-0.9); MONOCYTES % (AUTO) 4.3 % (2-12); NEUTROPHILS # (AUTO) 17.1 X10'3 (1.8-7.7); NEUTROPHILS % (AUTO) 91.6 % (42-75); PLATELET COUNT 240 X10'3 (140-440); RED BLOOD COUNT 3.79 X10'6 (4.70-6.10); RED CELL DISTRIBUTION WIDTH 14.9 % (11.5-14.5); WHITE BLOOD COUNT 18.7 X10'3 (4.5-11.0)
[2024-05-29 06:54] LABS: ALBUMIN 2.9 G/DL (3.4-5.0); ANION GAP 7 (8-16); BLOOD UREA NITROGEN 31 MG/DL (7-18); BUN/CREATININE RATIO 58.5 (10.0-20.0); CALCIUM 8.7 MG/DL (8.5-10.1); CHLORIDE 110 MMOL/L (99-107); CREATININE 0.53 MG/DL (0.60-1.10); GLUCOSE 193 MG/DL (70-104); POTASSIUM 3.8 MMOL/L (3.5-5.1); SODIUM 146 MMOL/L (135-145); TOTAL CARBON DIOXIDE 29.3 MMOL/L (24-32); eCRCL 128 ML/MIN; eGFR > 90 ML/MIN
[2024-05-29] MEDS: dexamethasone 4mg/ml inj IV SCH (09:49)
--- NOTE | 2024-05-29 11:05 | PROGRESS NOTE- Residence ---
Progress Note - Resident Providers to CC Resident Creating Document: JACQUELINE CHAVIS RES CC: BENJI HOLT MD ~ Central Line/PICC still needed: N\A Antibiotic Timeout Antibiotic Ordered?: No Subjective Patient seen and examined today. He is comfortably resting in the bed. Family said patient is having copious secretions from the tracheostomy site. Objective Vital Signs Date Time Temp Pulse Resp B/P (MAP) Pulse Ox O2 Delivery O2 Flow Rate FiO2 05/29/24 09:49 71 05/29/24 06:00 97.4 18 118/72 (87) 93 Nasal Cannula 3.0 05/28/24 20:00 32 Result Diagram: 05/29/2460805/29/24608 General: AAO x4, not in apparent distress, Head: Normocephalic with an atraumatic Eyes: Pupils- 3mm, reacting to light, conjunctiva- anicteric Nose and throat: No polyps, septum- normal, no mucosal ulcers, throat no bleeding Neck: Supple, no lymphadenopathy, no carotid bruit, dressing is wet with secretions at the tracheostomy site. Trach tube removed Respiratory: No use of accessory muscles of respiration, Bilateral coarse breath sounds Cardiac: S1-S2 heard, rythm irregular, no gallop/murmur Abdomen: G-tube in place, no erythema, no drainage noticed surrounding insertion site Colostomy bag noted in left hypochondriac region Suprapubic catheter noticed No bleeding from the Lovenox injection site Extremities: no clubbing, no pedal edema, no deformities, peripheral pulses- 2+ Skin: warm and dry, no rash, no purpura, sacral sore-poa Neuro: weakness of the right upper and lower extremity secondary to CVA, right wrist and right leg strapped Coagulation Studies Laboratory Tests Test 05/13/24 13:41 05/19/24 11:49 05/20/24 02:15 Activated Partial Thromboplast Time 32 SECONDS (22-32) Activated Clotting Time 279 SEC (101-148) H Prothrombin Time 12.9 SECONDS (9.0-12.0) H INR International Normalized Ratio 1.3 INR Coagulation Comments Assessment Assessment 73-year-old male with history of atrial fibrillation, history of hemorrhagic stroke , hypertension, cervical fusion initially underwent Watchman procedure on 05/19. Later he developed airway obstruction secondary to oral bleed and went into code blue. He had ROSC, underwent tracheostomy for emergency airway, and transferred to ICU. Plan Plan s/p PEA arrest Status post CPR and tracheostomy Acute hypoxemic respiratory failure Suspected laryngeal edema -off the MV since 05/21, tracheostomy decannulation done on 05/27, currently on oxygen via nasal cannula 3 liters/min - received hydrocort 50 mg q6 - weaned down to Decadron 4 mg q.12 on 05/29, -monitor SpO2 -Dr. Castro, burning supervisor consulted for the management of tracheostomy. Ailyn rea -could use spirometer. Per burning supervisor, will not be much effective as he still has the tracheostomy -patient is having copious secretions from the tracheostomy site. RT informed 100 changed dressing. They recommended wound care consult and a speech therapy evaluation. Orders placed. As patient is having copious secretions chest x-ray is ordered. Chest x-ray did not show any new changes except for mild pulmonary edema. AFib with CVR s/p Watchman 05/19 -aspirin and Plavix restarted on 05/22 -on metoprolol tartrate 50 mg q12 -monitor for throat bleed Urosepsis -urine cultures positive for Enterococcus faecalis sensitive to vanco -DC Zosyn -continue vanco pharmacy to dose started on 05/20 (day 7), Dr. Herrera, ID recommended to stop vancomycin after seven days. ailyn rea, completed seven days of vancomycin on 05/26 Hypertension -continue amlodipine 10 mg once daily, and metoprolol Hypernatremia -sodium slightly elevated today-146 -continue water flushes to 250 cc q.4h Hypokalemia K 3.4 replacement per protocol Normocytic anemia -hemoglobin stable at 11 Leukocytosis -initially secondary to sepsis resolved --slightly elevated WBC compared to yesterday. Procal remained negative. No elevated temperatures. Likely reactive due to decannulation-removal of trach tube and he is also on steroids -WBC went up to 25>>18>>14>>12 likely secondary to steroid induced, procal repeat today is normal -C diff canceled by ID Status post PEG Status post colostomy Status post SPC -wound care management History of intracranial bleed with right side hemiparesis Code Status: Full code Line/tube: PIV DVT prophylaxis: SCD.lovenox Nutrition: G Tube feeds PT: Yes Prognosis: Guarded Disposition: fam declined rehab, dc to home possibly on Thursday Jacqueline Chavis MD Internal Medicine Resident, PGY 2 Date of Service: May 29, 2024 Billing Provider: BENJI HOLT MD Common Visit Codes: [id number] INP/OBS CARE(HIGH) JACQUELINE CHAVIS, RES May 29, 2024 11:05 BENJI HOLT MD May 29, 2024 18:20
--- NOTE | 2024-05-29 13:05 | RADIOLOGY REPORT ---
CHEST RADIOGRAPH Indication: COARSE BREATH SOUNDS Technique: Single frontal view of the chest was obtained Comparison: DI CHEST,SINGLE VIEW on DOS: 05/20/24, DI CHEST,SINGLE VIEW on DOS: 05/19/24 FINDINGS: Lines and Tubes: None Lungs: No focal consolidation. Pleura: No effusion. No pneumothorax. Cardiomediastinal contours: Unremarkable Bones: No acute osseous abnormality. IMPRESSION: Mild pulmonary edema.
[2024-05-29] MEDS ORDERED: iohexol 300mg/ml 100ml inj. ONE (14:58)
[2024-05-29] MEDS ORDERED: iohexol 300 MG/1 ML 50ml polymer ONE (17:52)
--- NOTE | 2024-05-29 19:51 | RADIOLOGY REPORT ---
Exam: CT CT CHEST ABDOMEN PELVIS History: coarse breath sounds over lungs Comparison Study: None available at time of dictation. Contrast: Type of contrast: Isovue-300 Contrast injected: 150 mL Contrast wasted: 0 TECHNIQUE: A digital date puller image was obtained. During the uneventful, intravenous administration of c ontrast material, multislice data acquisition was obtained through the abdomen and pelvis. The data s et was subsequently reconstructed into axial images. Images were reviewed on a work station using a c ombination of axial and multiplanar using a variety of window levels and settings. Radiation Dose Information: CT Dose: CTDI volume is 18.39 mGy. Dose-length product is 718.2 mGy*cm FINDINGS: Lung Bases: No acute or significant lung base finding. Normal heart size. Small bilateral pleural ef fusions and bibasilar areas of atelectasis. Right pleural effusion is slightly larger than the left. The area of atelectasis is larger in the left base than the right. . Scattered coronary artery calci fication Liver: The liver is normal in size. No focal lesions. Normal hepatic vascular enhancement. Gallbladder and Biliary Tree: Is contracted Spleen: Unremarkable Pancreas: The pancreas is normal in appearance without focal lesions or abnormal enhancement. Adrenal Glands: Unremarkable Kidneys: Kidneys demonstrate normal symmetric enhancement without focal lesions, calculi or hydroneph rosis. 2.4 cm cortical cysts left kidney Bladder: Unremarkable Bowel: The stomach is grossly normal in appearance. Gastrostomy tube in place Small bowel and colon a re normal in caliber and distribution. Colostomy lower left anterior abdomen with contrast which exte nds from the colostomy to the rectum. There is no extravasation of the contrast noted. There are no i nflammatory changes around the distal colon from the colostomy to the rectum. The appendix is not vis ualized; however, no secondary findings of acute appendicitis identified. Ascites: Absent Lymphadenopathy: No mesenteric, retroperitoneal or periportal lymphadenopathy. Abdominal Wall and Mesentery: Unremarkable. Vasculature: The visualized abdominal aorta is normal in size and caliber. Abdominal and pelvic vess els demonstrate normal enhancement. Pelvic Organs: Unremarkable Musculoskeletal: No aggressive focal bony lesions, acute fractures or dislocation. Soft tissues: Unremarkable. IMPRESSION: 1. Gastrostomy tube in place 2. Colostomy anterior lower left abdomen with contrast noted from the colostomy to the rectum. There are diverticuli without findings of diverticulitis. There is a 2.5 cm segment where there is no contr ast noted in the colon however there is contrast seen distally suggesting this is a nonobstructive ar ea of narrowing. 3. 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 Bony spondylosis and degenerative disc changes are noted throughout the lumbar spine. 5. Left renal cyst is stable. All CT scans at this medical facility are performed using dose modulation techniques as appropriate t o a performed exam including the following: Automated exposure control was utilized; adjustment of th e MA and/or KV according to patient size; and use of iterative reconstruction technique.
[2024-05-30] VITALS (14 sets, daily range): BP systolic 102–133; BP diastolic 50–68; PULSE 62–87; RESP 15–22; TEMP 97.1–98.1; O2SAT 93–98
[2024-05-30 08:04] LABS: BASOPHILS % (AUTO) 0.1 % (0-1); EOSINOPHILS % (AUTO) 0 % (0-6); HEMATOCRIT 36.2 % (42.0-52.0); HEMOGLOBIN 11.9 g/dl (14.0-17.9); LYMPHOCYTES # (AUTO) 0.6 X10'3 (1.1-4.8); LYMPHOCYTES % (AUTO) 2.9 % (21-51); MEAN CORPUSCULAR HEMOGLOBIN 30.2 PG (27.0-31.0); MEAN CORPUSCULAR HGB CONC 32.8 g/dL (33.0-36.5); MEAN CORPUSCULAR VOLUME 92.1 FL (78-98); MEAN PLATELET VOLUME 8.4 FL (7.4-10.4); MONOCYTES % (AUTO) 5.1 % (2-12); NEUTROPHILS % (AUTO) 91.9 % (42-75); PLATELET COUNT 243 X10'3 (140-440); RED BLOOD COUNT 3.93 X10'6 (4.70-6.10); RED CELL DISTRIBUTION WIDTH 15.2 % (11.5-14.5); WHITE BLOOD COUNT 19.6 X10'3 (4.5-11.0)
[2024-05-30] MEDS: ondansetron/PF 4mg/2ml inj IV PRN (10:14)
--- NOTE | 2024-05-30 10:56 | PROGRESS NOTE- Residence ---
Progress Note - Resident Providers to CC Resident Creating Document: SKYLAR CHAVIS RES CC: BENJI HOLT MD ~ Antibiotic Timeout Antibiotic Ordered?: No Subjective Patient seen and examined today. He is comfortably resting in the bed. secretions from the trachesotomy site decreased. Patients is asking for a ct neck, saying his PCP Dr. Walters suggested that. They wants to go home today, and we informed them that as he is looking secretions from the tracheostomy site, we will wait for a day or two until they got better and then sent home. Informed to manager of case management that patient needs oxygen and suction arrangement while going home Speech therapy saw patient this morning and recommended NPO as patient is having wet voice after swallowing Objective Vital Signs Date Time Temp Pulse Resp B/P (MAP) Pulse Ox O2 Delivery O2 Flow Rate FiO2 05/30/24 10:19 76 05/30/24 10:15 16 05/30/24 07:33 Nasal Cannula 2.0 05/30/24 07:15 94 28 05/30/24 06:00 97.1 133/62 (85) Result Diagram: 05/30/24 0647 05/29/24 0609 General: AAO x4, not in apparent distress, Head: Normocephalic with an atraumatic Eyes: Pupils- 3mm, reacting to light, conjunctiva- anicteric Nose and throat: No polyps, septum- normal, no mucosal ulcers, throat no bleeding Neck: Supple, no lymphadenopathy, no carotid bruit, dressing at tracheosotmy site Respiratory: No use of accessory muscles of respiration, Bilateral coarse breath sounds Cardiac: S1-S2 heard, rythm irregular, no gallop/murmur Abdomen: G-tube in place, no erythema, no drainage noticed surrounding insertion site Colostomy bag noted in left hypochondriac region Suprapubic catheter noticed No bleeding from the Lovenox injection site Extremities: no clubbing, no pedal edema, no deformities, peripheral pulses- 2+ Skin: warm and dry, no rash, no purpura, sacral sore-poa Neuro: weakness of the right upper and lower extremity secondary to CVA, right wrist and right leg strapped Coagulation Studies Laboratory Tests Test 05/13/24 13:41 05/19/24 11:49 05/20/24 02:15 Activated Partial Thromboplast Time 32 SECONDS (22-32) Activated Clotting Time 279 SEC (101-148) H Prothrombin Time 12.9 SECONDS (9.0-12.0) H INR International Normalized Ratio 1.3 INR Coagulation Comments Assessment Assessment 73-year-old male with history of atrial fibrillation, history of hemorrhagic stroke , hypertension, cervical fusion initially underwent Watchman procedure on 05/19. Later he developed airway obstruction secondary to oral bleed and went into code blue. He had ROSC, underwent tracheostomy for emergency airway, and transferred to ICU. Plan Plan s/p PEA arrest Status post CPR and tracheostomy Acute hypoxemic respiratory failure Suspected laryngeal edema -off the MV since 05/21, tracheostomy decannulation done on 05/27, currently on oxygen via nasal cannula 3 liters/min - received hydrocort 50 mg q6 - weaned down to Decadron 4 mg q.24 on 05/30, and will stop from tmrw -monitor SpO2 -Dr. Castro, instrumental teacher consulted for the management of tracheostomy. Appreciate recs -could use spirometer. Per instrumental teacher, will not be much effective as he still has the tracheostomy Secretions from tracheostomy site -CT chest done on 05/29 Small bilateral pleural effusions and bibasilar areas of atelectasis. Right pleural effusion is slightly larger than the left. The area of atelectasis is larger in the left base than the right. -secretions have come down since patient is put on NPO. RT recommended pep with flutter valve, and changed the dressing. He received suction from secretions. -f/u on CT neck AFib with CVR s/p Watchman 05/19 -aspirin and Plavix restarted on 05/22 -on metoprolol tartrate 50 mg q12 -monitor for throat bleed Sepsis POA due to UTI- resolved -urine cultures positive for Enterococcus faecalis sensitive to vanco -DC Zosyn - Dr. Herrera, ID recommended to stop vancomycin after seven days. ailyn recs, completed seven days of vancomycin on 05/26 Hypertension -continue amlodipine 10 mg once daily, and metoprolol Hypernatremia -continue water flushes to 250 cc q.4h Hypokalemia- resolved Normocytic anemia -hemoglobin stable at 11 Leukocytosis -initially secondary to sepsis resolved --slightly elevated WBC compared to yesterday. Procal remained negative. No elevated temperatures. Likely reactive due to decannulation-removal of trach tube and he is also on steroids -WBC went up to 25>>18>>14>>12 likely secondary to steroid induced, procal repeat today is normal -C diff canceled by ID Status post PEG Status post colostomy Status post SPC -wound care management History of intracranial bleed with right side hemiparesis Acute CVA ruled out Code Status: Full code Line/tube: PIV DVT prophylaxis: SCD.lovenox Nutrition: G Tube feeds PT: Yes Prognosis: Guarded Disposition: fam declined rehab, dc to home in a day or two. Discharge checklist- oxygen, suction arrangement and education to fam, colostomy, SPC, PEG tube care education, f/u with Dr. Pelaez, cardio, f/u with PCP Skylar Chavis MD Internal Medicine Resident, PGY 2 Date of Service: May 30, 2024 Billing Provider: BENJI HOLT MD Common Visit Codes: [id number] INP/OBS CARE(HIGH) SKYLAR CHAVIS, RES May 30, 2024 10:56 BENJI HOLT MD May 30, 2024 18:47
--- NOTE | 2024-05-30 12:14 | RADIOLOGY REPORT ---
CLINICAL INFORMATION: Status post tracheostomy. Increased secretions. TECHNIQUE: Axial CT images of the neck soft tissues were obtained without IV contrast. Limited evalua tion of the neck soft tissues without IV contrast. Coronal and sagittal reformatted images were obtai fiordaliza, stored, and reviewed. One or more of the following dose reduction techniques were used: Automate d exposure control. Adjustment of mA and/or kV according to patient size. CTDIvol = 19.78 mGy DLP = 632.28 mGy-cm COMPARISON: None FINDINGS: Limited examination of the neck soft tissues without IV contrast. The nasopharynx, oropharynx, hypoph arynx, and larynx appear grossly unremarkable. There are postsurgical changes of tracheostomy. Mild d ensity in the posterior aspect of the trachea, likely secretions layering dependently, most prominent near the distal trachea. Thyroid gland, submandibular glands, and parotid glands demonstrate no acut e or suspicious findings. Postsurgical changes of anterior cervical discectomy and fusion at C3-C5 an d posterior spinal fusion hardware extending from the occipital calvarium to the C5 level. Surgical hardware appears intact. IMPRESSION: 1. Postsurgical changes of prior tracheostomy. 2. Layering secretions in the trachea. 3. Additional findings as described above.
[2024-05-31] VITALS (14 sets, daily range): BP systolic 102–123; BP diastolic 16–75; PULSE 62–96; RESP 14–20; TEMP 97.9–98.6; O2SAT 90–97
[2024-05-31 07:06] LABS: BASOPHILS % (AUTO) 0.1 % (0-1); EOSINOPHILS % (AUTO) 0 % (0-6); HEMATOCRIT 34.1 % (42.0-52.0); HEMOGLOBIN 11.1 g/dl (14.0-17.9); LYMPHOCYTES # (AUTO) 0.4 X10'3 (1.1-4.8); LYMPHOCYTES % (AUTO) 2.1 % (21-51); MEAN CORPUSCULAR HGB CONC 32.6 g/dL (33.0-36.5); MEAN CORPUSCULAR VOLUME 91.9 FL (78-98); MEAN PLATELET VOLUME 8.4 FL (7.4-10.4); MONOCYTES # (AUTO) 1.1 X10'3 (0-0.9); MONOCYTES % (AUTO) 5.4 % (2-12); NEUTROPHILS % (AUTO) 92.4 % (42-75); PLATELET COUNT 211 X10'3 (140-440); RED BLOOD COUNT 3.71 X10'6 (4.70-6.10); RED CELL DISTRIBUTION WIDTH 15.2 % (11.5-14.5); WHITE BLOOD COUNT 20.5 X10'3 (4.5-11.0)
[2024-05-31 07:40] LABS: ALANINE AMINOTRANSFERASE 82 U/L (12-78); ALBUMIN 2.6 G/DL (3.4-5.0); ALBUMIN/GLOBULIN RATIO 0.7 (1.1-1.5); ALKALINE PHOSPHATASE 78 IU/L (46-116); ANION GAP 8 (8-16); ASPARTATE AMINO TRANSFERASE 17 U/L (10-37); BILIRUBIN,TOTAL 0.8 MG/DL (0.1-1.0); BLOOD UREA NITROGEN 27 MG/DL (7-18); BUN/CREATININE RATIO 51.9 (10.0-20.0); CALCIUM 8.4 MG/DL (8.5-10.1); CHLORIDE 106 MMOL/L (99-107); CREATININE 0.52 MG/DL (0.60-1.10); GLUCOSE 177 MG/DL (70-104); SODIUM 142 MMOL/L (135-145); TOTAL PROTEIN 6.2 G/DL (6.4-8.2); eCRCL 131 ML/MIN; eGFR > 90 ML/MIN
[2024-05-31] MEDS: dexamethasone 4mg/ml inj IV SCH (10:55)
--- NOTE | 2024-05-31 14:46 | PROGRESS NOTE- Residence ---
Progress Note - Resident Providers to CC Resident Creating Document: SKYLAR CHAVIS RES CC: DILSHAD GOMEZ MD ~ Antibiotic Timeout Antibiotic Ordered?: No Subjective Patient seen and examined today. He is comfortably resting in the bed. Tracheostomy secretions came down. Patient's family wants him to go home today. Explained to them that when suction and all other devices are available at home that he can be discharged. They requested physical therapy to work with him today, informed to nurse to page physical therapy Objective Vital Signs Date Time Temp Pulse Resp B/P (MAP) Pulse Ox O2 Delivery O2 Flow Rate FiO2 05/31/24 10:57 64 05/31/24 10:39 18 Room Air 0.0 05/31/24 10:30 95 24 05/31/24 06:00 98.0 123/75 (91) Result Diagram: 05/31/2462805/31/24628 General: AAO x4, not in apparent distress, Head: Normocephalic with an atraumatic Eyes: Pupils- 3mm, reacting to light, conjunctiva- anicteric Nose and throat: No polyps, septum- normal, no mucosal ulcers, throat no bleeding Neck: Supple, no lymphadenopathy, no carotid bruit, dressing at tracheosotmy site Respiratory: No use of accessory muscles of respiration, Bilateral coarse breath sounds Cardiac: S1-S2 heard, rythm irregular, no gallop/murmur Abdomen: G-tube in place, no erythema, no drainage noticed surrounding insertion site Colostomy bag noted in left hypochondriac region Suprapubic catheter noticed No bleeding from the Lovenox injection site Extremities: no clubbing, no pedal edema, no deformities, peripheral pulses- 2+ Skin: warm and dry, no rash, no purpura, sacral sore-poa Neuro: weakness of the right upper and lower extremity secondary to CVA, Coagulation Studies Laboratory Tests Test 05/13/24 13:41 05/19/24 11:49 05/20/24 02:15 Activated Partial Thromboplast Time 32 SECONDS (22-32) Activated Clotting Time 279 SEC (101-148) H Prothrombin Time 12.9 SECONDS (9.0-12.0) H INR International Normalized Ratio 1.3 INR Coagulation Comments Assessment Assessment 73-year-old male with history of atrial fibrillation, history of hemorrhagic stroke , hypertension, cervical fusion initially underwent Watchman procedure on 05/19. Later he developed airway obstruction secondary to oral bleed and went into code blue. He had ROSC, underwent tracheostomy for emergency airway, and transferred to ICU. Plan Plan s/p PEA arrest Status post CPR and tracheostomy Acute hypoxemic respiratory failure Suspected laryngeal edema -off the MV since 05/21, tracheostomy decannulation done on 05/27, currently on room air - received hydrocort 50 mg q6 -DC Decadron -monitor SpO2 -Dr. Castro, ssn/ssbn assistant navigator consulted for the management of tracheostomy. Appreciate recs -could use spirometer. Per ssn/ssbn assistant navigator, will not be much effective as he still has the tracheostomy Secretions from tracheostomy site -CT chest done on 05/29 Small bilateral pleural effusions and bibasilar areas of atelectasis. Right pleural effusion is slightly larger than the left. The area of atelectasis is larger in the left base than the right. -secretions have come down since patient is put on NPO. RT recommended pep with flutter valve, and changed the dressing. He received suction from secretions. -CT neck- postsurgical changes of prior tracheostomy. AFib with CVR s/p Watchman 05/19 -aspirin and Plavix restarted on 05/22 -on metoprolol tartrate 50 mg q12 -monitor for throat bleed Sepsis POA due to UTI- resolved -urine cultures positive for Enterococcus faecalis sensitive to vanco -DC Zosyn - Dr. Herrera, ID recommended to stop vancomycin after seven days. appreciate recs, completed seven days of vancomycin on 05/26 Hypertension -continue amlodipine 10 mg once daily, and metoprolol Hypernatremia -continue water flushes to 250 cc q.4h Hypokalemia- resolved Normocytic anemia -hemoglobin stable at 11 Leukocytosis -initially secondary to sepsis resolved - Procal remained negative. No elevated temperatures. Likely reactive due to decannulation-removal of trach tube and he is also on steroids -WBC went up to 25>>18>>14>>12 likely secondary to steroid induced, -C diff canceled by ID Status post PEG Status post colostomy Status post SPC -wound care management -stool in the colostomy got thickened History of intracranial bleed with right side hemiparesis Acute CVA ruled out Code Status: Full code Line/tube: PIV DVT prophylaxis: SCD.lovenox Nutrition: G Tube feeds PT: Yes Prognosis: Guarded Disposition: fam declined rehab, dc to home in a day or two. Discharge checklist- oxygen, suction arrangement and education to fam, colostomy, SPC, PEG tube care education, f/u with Dr. Pelaez, cardio, f/u with PCP Skylar Chavis MD Internal Medicine Resident, PGY 2 Date of Service: May 31, 2024 Billing Provider: DILSHAD GOMEZ MD Common Visit Codes: [id number] INP/OBS CARE(HIGH) SKYLAR CHAVIS, RES May 31, 2024 14:46 DILSHAD GOMEZ MD Jun 02, 2024 15:11
[2024-06-01] VITALS (10 sets, daily range): BP systolic 115–130; BP diastolic 61–66; PULSE 85–99; RESP 18–20; TEMP 97.3–97.6; O2SAT 5–96
[2024-06-01 10:06] LABS: BASOPHILS % (AUTO) 0.1 % (0-1); EOSINOPHILS % (AUTO) 0 % (0-6); HEMATOCRIT 36.2 % (42.0-52.0); HEMOGLOBIN 11.7 g/dl (14.0-17.9); LYMPHOCYTES # (AUTO) 0.5 X10'3 (1.1-4.8); LYMPHOCYTES % (AUTO) 3.4 % (21-51); MEAN CORPUSCULAR HEMOGLOBIN 29.8 PG (27.0-31.0); MEAN CORPUSCULAR HGB CONC 32.3 g/dL (33.0-36.5); MEAN CORPUSCULAR VOLUME 92.2 FL (78-98); MEAN PLATELET VOLUME 8.4 FL (7.4-10.4); MONOCYTES % (AUTO) 6.9 % (2-12); NEUTROPHILS # (AUTO) 13.2 X10'3 (1.8-7.7); NEUTROPHILS % (AUTO) 89.6 % (42-75); PLATELET COUNT 209 X10'3 (140-440); RED BLOOD COUNT 3.92 X10'6 (4.70-6.10); RED CELL DISTRIBUTION WIDTH 15.4 % (11.5-14.5); WHITE BLOOD COUNT 14.7 X10'3 (4.5-11.0)
[2024-06-01 10:13] LABS: ALBUMIN 2.7 G/DL (3.4-5.0); ANION GAP 10 (8-16); BLOOD UREA NITROGEN 25 MG/DL (7-18); BUN/CREATININE RATIO 43.1 (10.0-20.0); CALCIUM 8.7 MG/DL (8.5-10.1); CHLORIDE 103 MMOL/L (99-107); CREATININE 0.58 MG/DL (0.60-1.10); GLUCOSE 180 MG/DL (70-104); SODIUM 141 MMOL/L (135-145); eCRCL 117 ML/MIN; eGFR > 90 ML/MIN
[2024-06-01 10:16] LABS: POTASSIUM 4.1 MMOL/L (3.5-5.1)
[2024-06-01] MEDS ORDERED: METO50TA16 PEG (12:40)
[2024-06-01] MEDS ORDERED: LANS15TA5 PEG (12:40)
[2024-06-01] MEDS ORDERED: ALBU8HFA PO (12:46)
[2024-06-01] MEDS ORDERED: ALBU2.5V7 NEB (14:52)
--- NOTE | 2024-06-01 15:55 | DISCHARGE SUMMARY-Residence ---
Discharge Summary Providers to CC Resident Creating Document: SKYLAR CHAVIS RES CC: DILSHAD GOMEZ MD ~ Discharge Summary Assessment 73-year-old male with history of atrial fibrillation, history of hemorrhagic stroke , hypertension, cervical fusion initially underwent Watchman procedure on 05/19/25. Later he developed airway obstruction secondary to oral bleed and went into code blue. He had ROSC, underwent tracheostomy for emergency airway, and transferred to ICU. Admission Diagnosis: Atrial Fibrillation with high bleeding risk Hospital Course DATE OF ADMISSION: 05/19/24 DATE OF DISCHARGE: 06/01/24 CT chest/abdomen shows pelvis on 05/29/2024 IMPRESSION: 1. Gastrostomy tube in place 2. Colostomy anterior lower left abdomen with contrast noted from the colostomy to the rectum. There are diverticuli without findings of diverticulitis. There is a 2.5 cm segment where there is no contrast noted in the colon however there is contrast seen distally suggesting this is a nonobstructive area of narrowing. 3. 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 Bony spondylosis and degenerative disc changes are noted throughout the lumbar spine. 5. Left renal cyst is stable. CT neck on 05/30/2024 IMPRESSION: 1. Postsurgical changes of prior tracheostomy. 2. Layering secretions in the trachea. 3. Additional findings as described above. Echocardiogram on 05/22/2024 Conclusion LV appears normal in size with mild concentric hypertrophy. Overall systolic function appears normal. LVEF is 60%. RV appears mildly dilated with normal contractility. LA appears moderately dilated. Intact interatrial septum with (small) L to R shunt s/p transseptal puncture by color and spectral Doppler. The tricuspid valve is normal in structure. Moderate tricuspid regurgitation. Ascending aorta measured at 4.0 cm. There is no pericardial effusion. Echocardiogram on 05/19/2024 Conclusion LV appears normal in size with mild concentric hypertrophy. LVEF is 55-60%. RV appears mildly dilated with normal contractility. LA appears moderately dilated. Windsock shaped appendage without thrombus detected. Left upper pulmonary vein identified. Intact interatrial septum. Width / length averages are: 0degr - 19 x 24 mm; 45degr - 16 x 25 mm; 90degr - 15 x 27 mm; 135degr 19 x 29 mm. Loop 23: Septal tenting visualized with RF atrial septal puncture performed. Loop 24: Wire in LA. Loop 27: Pigtail advanced to tip of appendage. LA pressure is measured at: 10 mmHG. Loop 28: Appendagram performed. Loop 29: Flex ball deployed. 27 mm Watchman FLX device, PASS criteria attempted, successfully. Loop 31: Successful "TUG" test performed. PASS reassessed. Optimal compression obtained - shoulder to shoulder measurement is: 20.75 mm. Device released. Patent interatrial septum with small residual left to right shunt (s/p transseptal puncture). Successfully occluded left atrial appendage with Watchman device well positioned without thrombus. No residual flow around device detected. No pericardial effusion post-implant. There is no pericardial effusion. Chest x-ray on 05/29/2024 IMPRESSION: Mild pulmonary edema. Discharge Diagnosis\\Comment: s/p PEA arrest Status post CPR and tracheostomy Acute hypoxemic respiratory failure laryngeal edema- resolved AFib with CVR s/p Watchman 05/19/24 His POA due to UTI resolved Hypertension Hypernatremia resolved Hypokalemia resolved Normocytic anemia resume Leukocytosis stress/steroid induced resolved S/p peg S/p colostomy S/p SPC History of intracranial bleed with right-sided hemiparesis, acute CVA ruled out Operations\\Procedures: trascheostomy by Dr. Dennis on 05/19 Consultants: Dr. Ramirez, fuse coiler Dr. Luke Pelaez, cardiology Complications: None Condition on DC: Stable New Medications: albuterol inhaler (Pro-Air Inhaler) 8.5 Gm Inhaler 1-2 PUFFS PO Q4H PRN for shortness of breath, #1 INH Albuterol Sulfate (Albuterol Sulfate) 2.5 Mg/3 Ml Vial.neb 1 VIAL NEB Q4HPRN PRN for wheezing, #150 ML 0 Refills Lansoprazole (Prevacid) 15 Mg Tab.rap.dr 40 MG PEG BKF PRN for HEARTBURN/INDIGESTION for 30 Days, #30 TAB Metoprolol Tartrate (Metoprolol Tartrate) 50 Mg Tablet 50 MG PEG Q12H for 30 Days, #60 TAB Continued Medications: Acetaminophen (Acetaminophen) 500 Mg Tablet 1 TAB PO TID, TAB Amitriptyline Hcl (Amitriptyline Hcl) 25 Mg Tablet 1 TAB PO DAILY, TAB 0 Refills Amlodipine Besylate (Norvasc) 10 Mg Tablet 1 TAB PO DAILY, TAB 0 Refills Aspirin (Ecotrin*) 81 Mg Tablet.dr 1 TAB PO DAILY, TAB Clopidogrel Bisulfate (Plavix) 75 Mg Tablet 75 MG PO DAILY, TAB 12 Refills Gabapentin (Neurontin) 300 Mg Capsule 1 CAP PO 6 TIMES A DAY Discharge Summary: 73-year-old male with history of atrial fibrillation, history of hemorrhagic stroke , hypertension, cervical fusion initially underwent Watchman procedure on 05/19/25. Later he developed airway obstruction secondary to oral bleed and went into code blue. He had ROSC, underwent tracheostomy for emergency airway, and transferred to ICU. Hospital course -patient initially got intubated and transferred to the ICU and then he was extubated on 05/21, and transferred to the floor, and he got trachestomy decannulation on 05/27. later on 3L of O2 and then he was on room air. He received iv decadron to reduce laryngeal edema. He also had sepsis due to UTI, and received iv vanco for 7 days for E. fecalis. His sepsis resolved. His bleeding got resolved, and restarted plavix and aspirin on 05/22. We continued his other medications. He had leukocytosis, and that was thought to be 2/2 steroid induced. He had secretions from trach site, which got better after suction and flutter valve. -He is hemodynamically stable at the time of discharge, and physical condition at discharge is as follows General: AAO x4, not in apparent distress, Head: Normocephalic with an atraumatic Eyes: Pupils- 3mm, reacting to light, conjunctiva- anicteric Nose and throat: No polyps, septum- normal, no mucosal ulcers, throat no b leeding Neck: Supple, no lymphadenopathy, no carotid bruit, dressing at tracheosotmy site Respiratory: No use of accessory muscles of respiration, Bilateral coarse breath sounds Cardiac: S1-S2 heard, rythm irregular, no gallop/murmur Abdomen: G-tube in place, no erythema, no drainage noticed surrounding insertion site Colostomy bag noted in left hypochondriac region Suprapubic catheter noticed No bleeding from the Lovenox injection site Extremities: no clubbing, no pedal edema, no deformities, peripheral pulses- 2+ Skin: warm and dry, no rash, no purpura, sacral sore-poa Neuro: weakness of the right upper and lower extremity secondary to CVA, Labs at discharge CBC-H and H , WBC 14.7, platelets 209 BMP-sodium 141, potassium 4.1, blood urea nitrogen 25, creatinine 0.5 Discharge medications can be found above and he is sent home with the following recommendations Please follow up with your PCP within a week of discharge please follow up with your industrial furnace fabricator Dr. Pelaez within a week of discharge Suction as needed from the tracheostomy site Tracheostomy site care, G-tube site care, suprapubic catheter site care, colostomy bag care-handouts were provided Continue all the medications as prescribed Return to the ER in case of any fever, increased secretions *Problems/Diagnosis: (1) Atrial fibrillation Total Time Spent on D/C: > 30 Minutes Date of Service: Jun 01, 2024 Billing Provider: DILSHAD GOMEZ MD Common Visit Codes: 44823-FNO/OBS DISCH DAY >30min SKYLAR CHAVIS, JAZMINE Jun 01, 2024 15:07 DILSHAD GOMEZ MD Jun 02, 2024 15:11
== END 2024-06-01 16:00 | disposition home or self-care (01) | DRG 4 ==
LOC: PAS IN 08:17 → PACU 12:10 → CICU 2S 15:15 → PCU 3S 05-22 15:00
PROVIDERS: ADMIT Student in an Organized Health Care Education/Training Program; ATTEND Student in an Organized Health Care Education/Training Program
PROC: 0B110F4 Bypass Trachea to Cutaneous with Tracheostomy Device, Open Approach (ICD-10-PCS; 2024-05-19)
PROC: 5A1945Z Respiratory Ventilation, 24-96 Consecutive Hours (ICD-10-PCS; 2024-05-19)
PROC: 5A12012 Performance of Cardiac Output, Single, Manual (ICD-10-PCS; 2024-05-19)
PROC: 30233N1 Transfusion of Nonautologous Red Blood Cells into Peripheral Vein, Percutaneous Approach (ICD-10-PCS; 2024-05-19)
PROC: 0CJS8ZZ Inspection of Larynx, Via Natural or Artificial Opening Endoscopic (ICD-10-PCS; 2024-05-19)
PROC: 02L73DK Occlusion of Left Atrial Appendage with Intraluminal Device, Percutaneous Approach (ICD-10-PCS; principal; 2024-05-19 11:11)
PROC: B24BZZ4 Ultrasonography of Heart with Aorta, Transesophageal (ICD-10-PCS; 2024-05-29)
PROC: BW251ZZ Computerized Tomography (CT Scan) of Chest, Abdomen and Pelvis using Low Osmolar Contrast (ICD-10-PCS; 2024-05-29)
DX: I48.91 Unspecified atrial fibrillation (principal); Z00.6 Encounter for examination for normal comparison and control in clinical research program; A41.9 Sepsis, unspecified organism; G82.50 Quadriplegia, unspecified; J96.01 Acute respiratory failure with hypoxia; I69.951 Hemiplegia and hemiparesis following unspecified cerebrovascular disease affecting right dominant side; N39.0 Urinary tract infection, site not specified; I46.9 Cardiac arrest, cause unspecified; J38.4 Edema of larynx; R04.1 Hemorrhage from throat; E83.39 Other disorders of phosphorus metabolism; R73.9 Hyperglycemia, unspecified; R13.12 Dysphagia, oropharyngeal phase; I10 Essential (primary) hypertension; Z98.1 Arthrodesis status; Z93.3 Colostomy status; Z87.891 Personal history of nicotine dependence
CPT/HCPCS: 31603; 33340; 36415; 36430; 36600; 70490; 71045; 71046; 71260; 74177; 76937; 80048; 80053; 80202; 81001; 82803; 82948; 83036; 83605; 83735; 83880; 84100; 84132; 84134; 84145; 84484; 85007; 85018; 85025; 85347; 85610; 85730; 86885; 86900; 86901; 86920; 87070; 87077; 87081; 87088; 87186; 87324; 87449; 92508; 92616; 93005; 93308; 93312; 93325; 94002; 94003; 94640; 94664; 94668; 94760; 97110; 97161; 97530; A4314; A4421; A4615; A4618; A4620; A4623; A4624; A4628; A6212; A6213; A6253; A6258; A6449; A7525; C1751; C1760; C1889; C1893; C1894; G0378; J0171; J0360; J0461; J0690; J1100; J1644; J1650; J1720; J1815; J2003; J2250; J2371; J2405; J2543; J2704; J2710; J2720; J3010; J3370; J3372; J3475; J3480; J3490; J7030; J7040; J7060; J7070; J7120; P9016; Q9967